=== PATIENT | female | born 1945 | race Caucasian/White ===

== ENCOUNTER 2017-05-25 13:27 | Inpatient (IN) ==
[2017-05-25] MEDS ORDERED: ALBUTEROL/IPRATROPIUM 3 ML NEB RESP TX STA (14:38)
[2017-05-25 15:00] LABS: Apearance,Urine CLEAR (Clear); Bilirubin,Urine Negative (Negative); Blood, Urine Negative (Negative); Glucose,Urine (UA) Negative (Negative); Ketones,Urine 5 mg/dL (Negative); Mucus,Urine Occasional /LPF (Occasional); Nitrite,Urine Negative (Negative); Protein,Urine Negative; RBC,Urine 2 /HPF (0-4); Squamous Epithelial Cell,Urine Occasional /HPF (0-10); Urine Color Yellow (Yellow); Urine Specific Gravity 1.014 (1.001-1.035); Urine Urobilinogen < 2.0 EU/DL (0.2-1.0); WBC,Urine 1 /HPF (0-6)
[2017-05-25 15:34] LABS: Basophils # 0.1 10*3/uL (0.0-0.2); Basophils % 1.9 % (0.0-0.8); Eosinophils # 0.3 10*3/uL (0.0-0.87); Eosinophils % 3.7 % (0.00-10.9); Immature Granulocytes % 0.3 %; Immature Granulocytes Absolute 0.02 #; Lymphocytes # 1.8 10*3/uL (1.4-4.0); Lymphocytes % 24.2 % (21.3-54.2); Mean Corpuscular HGB Conc 30.2 GM/DL (32-36); Mean Corpuscular Hemoglobin 24 PG (27-34); Mean Corpuscular Volume 80.7 FL (87-102); Mean Platelet Volume 12.1 FL (9.6-12.0); Monocytes # 0.5 10*3/uL (0.11-0.8); Monocytes % 6.8 % (1.7-12.7); NRBC # 0.02 10*3/uL; Neutrophils # 4.7 10*3/uL (1.4-7.4); Neutrophils % 63.1 % (38.7-73.9); Platelet Count 430 T/CUMM (130-400); Red Blood Count 5.33 MC/CUMM (3.8-5.5); Red Cell Distribution Width 16.5 % (9.3-17.3); White Blood Count 7.4 T/CUMM (4-12)
[2017-05-25 15:47] LABS: INR 2.5
[2017-05-25 15:54] LABS: Lactic Acid 1.3 MMOL/L (0.4-2.0)
[2017-05-25 15:59] LABS: PT Patient Result 25.5 SECS
[2017-05-25 16:10] LABS: Albumin 3.6 G/DL (3.4-5.0); Bilirubin,Total 0.7 MG/DL (0.2-1.0); Calcium 8.4 MG/DL (8.5-10.1); Osmolality,Calculated 272.8 MOS/KG (273-304); Potassium 4.8 MMOL/L (3.5-5.1); Total Protein 7.7 G/DL (6.4-8.3)
[2017-05-25] MEDS ORDERED: cefTRIAXone 1,000 MG VIAL IV STA (16:26)
[2017-05-25] MEDS ORDERED: cefTRIAXone 1,000 MG VIAL ONE (16:30)
[2017-05-25] MEDS ORDERED: ALBUTEROL 2.5 MG/3 ML NEB RESP TX PRN (16:42)
[2017-05-25] MEDS ORDERED: ONDANSETRON 4 MG/2 ML VIAL IV PRN (16:53)
[2017-05-25] MEDS ORDERED: ACETAMINOPHEN 325 MG TABLET PO PRN (16:53)
[2017-05-25] MEDS: AZITHROMYCIN INJ 500 MG in SODIUM CHLORIDE 0.9% 250 ML IV SCH (21:56)
[2017-05-26] MEDS: ALBUTEROL/IPRATROPIUM 3 ML NEB RESP TX SCH ×5 (00:30→18:41)
[2017-05-26 05:16] LABS: INR 2.4
[2017-05-26 05:17] LABS: PT Patient Result 24.8 SECS
[2017-05-26 05:32] LABS: Basophils # 0.1 10*3/uL (0.0-0.2); Basophils % 1.6 % (0.0-0.8); Eosinophils # 0.3 10*3/uL (0.0-0.87); Hematocrit 39.2 VOL% (35.7-47.0); Hemoglobin 11.9 GM/DL (12.0-16.0); Immature Granulocytes % 0.3 %; Immature Granulocytes Absolute 0.02 #; Lymphocytes # 2.2 10*3/uL (1.4-4.0); Lymphocytes % 32.3 % (21.3-54.2); Mean Corpuscular HGB Conc 30.4 GM/DL (32-36); Mean Corpuscular Hemoglobin 24 PG (27-34); Mean Corpuscular Volume 80.2 FL (87-102); Mean Platelet Volume 11.9 FL (9.6-12.0); Monocytes # 0.6 10*3/uL (0.11-0.8); Monocytes % 9.1 % (1.7-12.7); NRBC # 0.02 10*3/uL; Neutrophils # 3.6 10*3/uL (1.4-7.4); Neutrophils % 52.7 % (38.7-73.9); Platelet Count 395 T/CUMM (130-400); Red Blood Count 4.89 MC/CUMM (3.8-5.5); Red Cell Distribution Width 16.4 % (9.3-17.3); White Blood Count 6.7 T/CUMM (4-12)
[2017-05-26 05:38] LABS: Calcium 8.3 MG/DL (8.5-10.1); Osmolality,Calculated 278.5 MOS/KG (273-304); Potassium 4.3 MMOL/L (3.5-5.1)
[2017-05-26] MEDS: PANTOPRAZOLE 40 MG TABLET PO SCH (08:26)
[2017-05-26] MEDS ORDERED: WARFARIN 4 MG TABLET PO SCH (18:00)
[2017-05-26] MEDS: methylPREDNISolone SOD SUC 40 MG/1 ML VIAL IV SCH (18:22)
[2017-05-26] MEDS: cefTRIAXone 1,000 MG in SYRINGE 1 EACH IV SCH (18:23)
[2017-05-26] MEDS: AZITHROMYCIN INJ 500 MG in SODIUM CHLORIDE 0.9% 250 ML IV SCH (18:24)
[2017-05-26] MEDS: AMITRIPTYLINE 25 MG TABLET PO SCH (20:40)
[2017-05-26] MEDS: BACLOFEN 10 MG TABLET PO SCH (22:15)
[2017-05-27] MEDS: ALBUTEROL/IPRATROPIUM 3 ML NEB RESP TX SCH ×4 (00:07→19:31)
[2017-05-27] MEDS: methylPREDNISolone SOD SUC 40 MG/1 ML VIAL IV SCH ×3 (01:04→17:48)
[2017-05-27] MEDS: BACLOFEN 10 MG TABLET PO SCH ×2 (06:50→17:48)
[2017-05-27 07:05] LABS: INR 1.3
[2017-05-27] MEDS: SERTRALINE 50 MG TABLET PO SCH (10:23)
[2017-05-27] MEDS: NICOTINE 14 MG/24 HR PATCH TRANSDERM SCH (10:23)
[2017-05-27] MEDS: SOLIFENACIN 5 MG TABLET PO SCH (10:23)
[2017-05-27] MEDS: ATORVASTATIN 40 MG TABLET PO SCH (10:23)
[2017-05-27] MEDS: TERBINAFINE 250 MG TABLET PO SCH (10:23)
[2017-05-27] MEDS: PANTOPRAZOLE 40 MG TABLET PO SCH (10:24)
[2017-05-27] MEDS: CETIRIZINE 10 MG TABLET PO SCH (10:24)
[2017-05-27] MEDS: cefTRIAXone 1,000 MG in SYRINGE 1 EACH IV SCH (17:48)
[2017-05-27] MEDS ORDERED: WARFARIN 5 MG TABLET PO SCH (18:00)
[2017-05-27] MEDS: CYCLOBENZAPRINE 10 MG TABLET PO SCH ×2 (19:26→21:01)
[2017-05-27] MEDS: AMITRIPTYLINE 25 MG TABLET PO SCH (21:01)
[2017-05-28] MEDS: ALBUTEROL/IPRATROPIUM 3 ML NEB RESP TX SCH (00:17)
[2017-05-28] MEDS: methylPREDNISolone SOD SUC 40 MG/1 ML VIAL IV SCH ×2 (01:21→09:24)
[2017-05-28 07:50] LABS: INR 1.4; PT Patient Result 14.6 SECS
[2017-05-28] MEDS: CETIRIZINE 10 MG TABLET PO SCH (09:24)
[2017-05-28] MEDS: PANTOPRAZOLE 40 MG TABLET PO SCH (09:24)
[2017-05-28] MEDS: SERTRALINE 50 MG TABLET PO SCH (09:24)
[2017-05-28] MEDS: CYCLOBENZAPRINE 10 MG TABLET PO SCH (09:24)
[2017-05-28] MEDS: NICOTINE 14 MG/24 HR PATCH TRANSDERM SCH (09:24)
[2017-05-28] MEDS: SOLIFENACIN 5 MG TABLET PO SCH (09:24)
[2017-05-28] MEDS: ATORVASTATIN 40 MG TABLET PO SCH (09:24)
[2017-05-28] MEDS: TERBINAFINE 250 MG TABLET PO SCH (09:24)
[2017-05-28 11:21] VITALS: BP 150/84
[2017-05-28] MEDS ORDERED: FLUCONAZOLE 200 MG TABLET PO SCH (12:00)
== END 2017-05-28 13:58 | disposition home or self-care (01) | DRG 190 ==
LOC: N.ED 13:27 → N.EDINP 16:19 → N.4E 19:03
PROVIDERS: ADMIT Hospitalist; ATTEND Hospitalist

== ENCOUNTER 2017-06-07 17:08 | Inpatient (IN) ==
[2017-06-07 19:01] LABS: Basophils # 0.1 10*3/uL (0.0-0.2); Basophils % 0.7 % (0.0-0.8); Eosinophils # 0.2 10*3/uL (0.0-0.87); Eosinophils % 1.3 % (0.00-10.9); Hematocrit 43.5 VOL% (35.7-47.0); Hemoglobin 13.4 GM/DL (12.0-16.0); Immature Granulocytes % 0.5 %; Immature Granulocytes Absolute 0.08 #; Lymphocytes # 2.1 10*3/uL (1.4-4.0); Lymphocytes % 14.3 % (21.3-54.2); Mean Corpuscular HGB Conc 30.8 GM/DL (32-36); Mean Corpuscular Hemoglobin 25 PG (27-34); Mean Corpuscular Volume 80.4 FL (87-102); Mean Platelet Volume 11.2 FL (9.6-12.0); Monocytes # 0.6 10*3/uL (0.11-0.8); Monocytes % 3.8 % (1.7-12.7); Neutrophils # 11.7 10*3/uL (1.4-7.4); Neutrophils % 79.4 % (38.7-73.9); Platelet Count 502 T/CUMM (130-400); Red Blood Count 5.41 MC/CUMM (3.8-5.5); Red Cell Distribution Width 18.1 % (9.3-17.3); White Blood Count 14.8 T/CUMM (4-12)
[2017-06-07 19:20] LABS: Alanine Aminotransferase 19 U/L (13-56); Alkaline Phosphatase 110 U/L (45-117); Aspartate Amino Transferase 12 U/L (0-37); Bilirubin,Total < 0.39 MG/DL (0.2-1.0); Blood Urea Nitrogen 14 MG/DL (7-18); Calcium 8.1 MG/DL (8.5-10.1); Glucose 116 MG/DL (74-106); Osmolality,Calculated 276.7 MOS/KG (273-304); Potassium 4.2 MMOL/L (3.5-5.1); Sodium 138 MMOL/L (136-145); Total Protein 6.4 G/DL (6.4-8.3)
[2017-06-07] MEDS ORDERED: SODIUM CHLORIDE 0.9% 500 ML IV STA (20:17)
[2017-06-07 20:37] LABS: INR 2.5
[2017-06-07 20:39] LABS: PT Patient Result 25.6 SECS
[2017-06-07] MEDS ORDERED: ACETAMINOPHEN 325 MG TABLET PO PRN (22:22)
[2017-06-07] MEDS ORDERED: ONDANSETRON 4 MG/2 ML VIAL IV PRN (22:22)
[2017-06-07] MEDS: SODIUM CHLORIDE 0.9% 1,000 ML IV SCH (23:08)
[2017-06-07] MEDS: LEVOFLOXACIN INJ 750 MG in PREMIX 1 EACH IV SCH (23:08)
[2017-06-07] MEDS: DOCUSATE SODIUM 100 MG CAPSULE PO SCH (23:09)
[2017-06-07] MEDS: MORPHINE 2 MG/1 ML SYRINGE IV PRN (23:12)
[2017-06-08] MEDS: PIPERACILLIN/TAZOBACTAM 3,375 MG in SODIUM CHLORIDE 0.9% 100 ML IV SCH ×3 (01:00→16:49)
[2017-06-08] MEDS ORDERED: ALBUTEROL 1.25 MG/3 ML NEB RESP TX PRN (06:22)
[2017-06-08 07:09] LABS: Basophils # 0.1 10*3/uL (0.0-0.2); Basophils % 0.8 % (0.0-0.8); Eosinophils # 0.3 10*3/uL (0.0-0.87); Eosinophils % 2.7 % (0.00-10.9); Hematocrit 37.7 VOL% (35.7-47.0); Hemoglobin 11.6 GM/DL (12.0-16.0); Immature Granulocytes % 0.5 %; Immature Granulocytes Absolute 0.06 #; Lymphocytes # 2.7 10*3/uL (1.4-4.0); Mean Corpuscular HGB Conc 30.8 GM/DL (32-36); Mean Corpuscular Hemoglobin 25 PG (27-34); Mean Corpuscular Volume 80.6 FL (87-102); Mean Platelet Volume 11.4 FL (9.6-12.0); Monocytes # 0.7 10*3/uL (0.11-0.8); Monocytes % 5.8 % (1.7-12.7); Neutrophils # 7.7 10*3/uL (1.4-7.4); Neutrophils % 67.2 % (38.7-73.9); Platelet Count 419 T/CUMM (130-400); Red Blood Count 4.68 MC/CUMM (3.8-5.5); Red Cell Distribution Width 17.2 % (9.3-17.3); White Blood Count 11.5 T/CUMM (4-12)
[2017-06-08] MEDS: ALBUTEROL/IPRATROPIUM 3 ML NEB RESP TX SCH ×3 (07:38→19:33)
[2017-06-08 07:41] LABS: Calcium 8.2 MG/DL (8.5-10.1); Osmolality,Calculated 274.7 MOS/KG (273-304); Potassium 4.3 MMOL/L (3.5-5.1)
[2017-06-08] MEDS: DOCUSATE SODIUM 100 MG CAPSULE PO SCH ×2 (08:58→20:32)
[2017-06-08] MEDS: PANTOPRAZOLE 40 MG TABLET PO SCH (08:58)
[2017-06-08] MEDS: POLYETHYLENE GLYCOL POWDER 17 GM PACK PO SCH (08:58)
[2017-06-08] MEDS: METHOCARBAMOL 500 MG TABLET PO SCH ×2 (09:03→20:32)
[2017-06-08] MEDS ORDERED: LORazepam 2 MG/1 ML VIAL IV ONE (11:32)
[2017-06-08] MEDS ORDERED: BACLOFEN 10 MG TABLET PO SCH (15:00)
[2017-06-08] MEDS: WARFARIN 4 MG TABLET PO SCH (18:29)
[2017-06-08] MEDS: AMITRIPTYLINE 25 MG TABLET PO SCH (20:32)
[2017-06-08] MEDS: MORPHINE 2 MG/1 ML SYRINGE IV PRN (22:16)
[2017-06-08] MEDS: LEVOFLOXACIN INJ 750 MG in PREMIX 1 EACH IV SCH (22:34)
[2017-06-09] MEDS: PIPERACILLIN/TAZOBACTAM 3,375 MG in SODIUM CHLORIDE 0.9% 100 ML IV SCH ×3 (01:23→16:45)
[2017-06-09] MEDS: ALBUTEROL/IPRATROPIUM 3 ML NEB RESP TX SCH ×4 (01:27→19:01)
[2017-06-09 05:19] LABS: Basophils # 0.1 10*3/uL (0.0-0.2); Basophils % 0.7 % (0.0-0.8); Eosinophils # 0.3 10*3/uL (0.0-0.87); Eosinophils % 3.3 % (0.00-10.9); Hematocrit 36.1 VOL% (35.7-47.0); Hemoglobin 11.2 GM/DL (12.0-16.0); Immature Granulocytes % 0.4 %; Immature Granulocytes Absolute 0.04 #; Lymphocytes # 2.1 10*3/uL (1.4-4.0); Lymphocytes % 21.7 % (21.3-54.2); Mean Corpuscular Hemoglobin 24 PG (27-34); Mean Corpuscular Volume 78.3 FL (87-102); Mean Platelet Volume 11.5 FL (9.6-12.0); Monocytes # 0.7 10*3/uL (0.11-0.8); Monocytes % 7.4 % (1.7-12.7); Neutrophils # 6.5 10*3/uL (1.4-7.4); Neutrophils % 66.5 % (38.7-73.9); Platelet Count 393 T/CUMM (130-400); Red Blood Count 4.61 MC/CUMM (3.8-5.5); Red Cell Distribution Width 17.4 % (9.3-17.3); White Blood Count 9.8 T/CUMM (4-12)
[2017-06-09 05:52] LABS: Calcium 7.9 MG/DL (8.5-10.1); Osmolality,Calculated 273.7 MOS/KG (273-304); Potassium 4.4 MMOL/L (3.5-5.1)
[2017-06-09] MEDS ORDERED: MIDAZOLAM 2 MG/2 ML VIAL ONE (07:22)
[2017-06-09] MEDS ORDERED: MEPERIDINE 50 MG/1 ML VIAL IM ONE (07:30)
[2017-06-09] MEDS ORDERED: PROMETHAZINE 25 MG/1 ML VIAL IM ONE (07:30)
[2017-06-09] MEDS ORDERED: LIDOCAINE 1% 20 ML VIAL MISC INJ ONE (08:00)
[2017-06-09] MEDS ORDERED: LIDOCAINE 2% 20 ML VIAL RESP TX ONE (08:00)
[2017-06-09] MEDS ORDERED: MIDAZOLAM 2 MG/2 ML VIAL IV ONE (08:00)
[2017-06-09] MEDS ORDERED: LIDOCAINE 2% VISCOUS 100 ML BOTTLE SWISH/SPIT ONE (08:00)
[2017-06-09] MEDS ORDERED: WARFARIN 4 MG TABLET PO SCH (09:00)
[2017-06-09] MEDS ORDERED: LORazepam 2 MG/1 ML VIAL IV ONE (09:30)
[2017-06-09] MEDS: methylPREDNISolone SOD SUC 40 MG/1 ML VIAL IV SCH ×2 (11:25→21:11)
[2017-06-09] MEDS: ATORVASTATIN 40 MG TABLET PO SCH (11:25)
[2017-06-09] MEDS: DOCUSATE SODIUM 100 MG CAPSULE PO SCH ×2 (11:26→21:18)
[2017-06-09] MEDS: METHOCARBAMOL 500 MG TABLET PO SCH ×2 (11:26→21:18)
[2017-06-09] MEDS: PANTOPRAZOLE 40 MG TABLET PO SCH (11:26)
[2017-06-09] MEDS: POLYETHYLENE GLYCOL POWDER 17 GM PACK PO SCH (11:26)
[2017-06-09] MEDS: SOLIFENACIN 5 MG TABLET PO SCH (11:26)
[2017-06-09] MEDS: SERTRALINE 50 MG TABLET PO SCH (11:26)
[2017-06-09] MEDS: TERBINAFINE 250 MG TABLET PO SCH (11:26)
[2017-06-09] MEDS: WARFARIN 4 MG TABLET PO SCH (17:07)
[2017-06-09] MEDS: LEVOFLOXACIN INJ 750 MG in PREMIX 1 EACH IV SCH (21:10)
[2017-06-09] MEDS: SODIUM CHLORIDE 0.9% 1,000 ML IV SCH (21:10)
[2017-06-09] MEDS: AMITRIPTYLINE 25 MG TABLET PO SCH (21:18)
[2017-06-10] MEDS: ALBUTEROL/IPRATROPIUM 3 ML NEB RESP TX SCH ×4 (00:02→19:28)
[2017-06-10] MEDS: PIPERACILLIN/TAZOBACTAM 3,375 MG in SODIUM CHLORIDE 0.9% 100 ML IV SCH ×3 (00:49→16:36)
[2017-06-10 06:31] LABS: Basophils % 0.1 % (0.0-0.8); Hematocrit 36.3 VOL% (35.7-47.0); Hemoglobin 11.1 GM/DL (12.0-16.0); Immature Granulocytes % 0.6 %; Immature Granulocytes Absolute 0.05 #; Lymphocytes # 0.8 10*3/uL (1.4-4.0); Lymphocytes % 9.4 % (21.3-54.2); Mean Corpuscular HGB Conc 30.6 GM/DL (32-36); Mean Corpuscular Hemoglobin 24 PG (27-34); Mean Corpuscular Volume 79.1 FL (87-102); Mean Platelet Volume 11.7 FL (9.6-12.0); Monocytes # 0.2 10*3/uL (0.11-0.8); Neutrophils # 7.2 10*3/uL (1.4-7.4); Neutrophils % 87.9 % (38.7-73.9); Platelet Count 398 T/CUMM (130-400); Red Blood Count 4.59 MC/CUMM (3.8-5.5); Red Cell Distribution Width 17.6 % (9.3-17.3); White Blood Count 8.2 T/CUMM (4-12)
[2017-06-10 06:43] LABS: INR 1.4
[2017-06-10 07:05] LABS: Calcium 8.4 MG/DL (8.5-10.1); Osmolality,Calculated 288.5 MOS/KG (273-304); Potassium 4.4 MMOL/L (3.5-5.1)
[2017-06-10] MEDS: methylPREDNISolone SOD SUC 40 MG/1 ML VIAL IV SCH ×2 (09:40→20:56)
[2017-06-10] MEDS: TERBINAFINE 250 MG TABLET PO SCH (09:40)
[2017-06-10] MEDS: METHOCARBAMOL 500 MG TABLET PO SCH ×2 (09:40→20:55)
[2017-06-10] MEDS: POLYETHYLENE GLYCOL POWDER 17 GM PACK PO SCH (09:41)
[2017-06-10] MEDS: PANTOPRAZOLE 40 MG TABLET PO SCH (09:41)
[2017-06-10] MEDS: DOCUSATE SODIUM 100 MG CAPSULE PO SCH ×2 (09:41→20:55)
[2017-06-10] MEDS: SERTRALINE 50 MG TABLET PO SCH (09:41)
[2017-06-10] MEDS: SOLIFENACIN 5 MG TABLET PO SCH (09:41)
[2017-06-10] MEDS: ATORVASTATIN 40 MG TABLET PO SCH (09:41)
[2017-06-10] MEDS ORDERED: MORPHINE 4 MG/1 ML VIAL IV PRN (11:02)
[2017-06-10] MEDS: WARFARIN 4 MG TABLET PO SCH (17:49)
[2017-06-10] MEDS: AMITRIPTYLINE 25 MG TABLET PO SCH (20:56)
[2017-06-10] MEDS: LEVOFLOXACIN INJ 750 MG in PREMIX 1 EACH IV SCH (20:59)
[2017-06-11] MEDS: ALBUTEROL/IPRATROPIUM 3 ML NEB RESP TX SCH ×4 (00:25→19:31)
[2017-06-11] MEDS: PIPERACILLIN/TAZOBACTAM 3,375 MG in SODIUM CHLORIDE 0.9% 100 ML IV SCH ×3 (01:53→16:12)
[2017-06-11 06:00] LABS: Basophils % 0.1 % (0.0-0.8); Hematocrit 34.9 VOL% (35.7-47.0); Hemoglobin 10.4 GM/DL (12.0-16.0); Immature Granulocytes % 1.3 %; Immature Granulocytes Absolute 0.15 #; Lymphocytes # 1.1 10*3/uL (1.4-4.0); Lymphocytes % 9.6 % (21.3-54.2); Mean Corpuscular HGB Conc 29.8 GM/DL (32-36); Mean Corpuscular Hemoglobin 24 PG (27-34); Monocytes # 0.4 10*3/uL (0.11-0.8); Neutrophils # 10.1 10*3/uL (1.4-7.4); Platelet Count 382 T/CUMM (130-400); Red Blood Count 4.36 MC/CUMM (3.8-5.5); Red Cell Distribution Width 17.7 % (9.3-17.3); White Blood Count 11.7 T/CUMM (4-12)
[2017-06-11 06:11] LABS: Calcium 8.4 MG/DL (8.5-10.1); Osmolality,Calculated 292.4 MOS/KG (273-304); Potassium 4.5 MMOL/L (3.5-5.1)
[2017-06-11 06:14] LABS: INR 1.8; PT Patient Result 18.5 SECS
[2017-06-11] MEDS: METHOCARBAMOL 500 MG TABLET PO SCH ×2 (09:27→20:54)
[2017-06-11] MEDS: FLUCONAZOLE 100 MG TABLET PO SCH (09:27)
[2017-06-11] MEDS: POLYETHYLENE GLYCOL POWDER 17 GM PACK PO SCH (09:27)
[2017-06-11] MEDS: TERBINAFINE 250 MG TABLET PO SCH (09:28)
[2017-06-11] MEDS: SOLIFENACIN 5 MG TABLET PO SCH (09:28)
[2017-06-11] MEDS: DOCUSATE SODIUM 100 MG CAPSULE PO SCH ×2 (09:28→20:54)
[2017-06-11] MEDS: PANTOPRAZOLE 40 MG TABLET PO SCH (09:28)
[2017-06-11] MEDS: SERTRALINE 50 MG TABLET PO SCH (09:28)
[2017-06-11] MEDS: ATORVASTATIN 40 MG TABLET PO SCH (09:28)
[2017-06-11] MEDS: methylPREDNISolone SOD SUC 40 MG/1 ML VIAL IV SCH ×2 (10:45→20:55)
[2017-06-11] MEDS: SODIUM CHLORIDE 0.9% 1,000 ML IV SCH (19:08)
[2017-06-11] MEDS: AMITRIPTYLINE 25 MG TABLET PO SCH (20:54)
[2017-06-11] MEDS: LEVOFLOXACIN INJ 750 MG in PREMIX 1 EACH IV SCH (20:55)
[2017-06-12] MEDS: ALBUTEROL/IPRATROPIUM 3 ML NEB RESP TX SCH ×4 (00:59→19:19)
[2017-06-12] MEDS: PIPERACILLIN/TAZOBACTAM 3,375 MG in SODIUM CHLORIDE 0.9% 100 ML IV SCH ×3 (02:46→16:16)
[2017-06-12 07:00] LABS: Basophils % 0.1 % (0.0-0.8); Eosinophils % 0.1 % (0.00-10.9); Hematocrit 34.2 VOL% (35.7-47.0); Hemoglobin 10.7 GM/DL (12.0-16.0); Immature Granulocytes % 0.8 %; Immature Granulocytes Absolute 0.07 #; Lymphocytes # 0.9 10*3/uL (1.4-4.0); Lymphocytes % 10.4 % (21.3-54.2); Mean Corpuscular HGB Conc 31.3 GM/DL (32-36); Mean Corpuscular Hemoglobin 25 PG (27-34); Mean Corpuscular Volume 78.4 FL (87-102); Mean Platelet Volume 12.6 FL (9.6-12.0); Monocytes # 0.3 10*3/uL (0.11-0.8); Monocytes % 2.9 % (1.7-12.7); NRBC # 0.03 10*3/uL; Neutrophils # 7.7 10*3/uL (1.4-7.4); Neutrophils % 85.7 % (38.7-73.9); Platelet Count 222 T/CUMM (130-400); Red Blood Count 4.36 MC/CUMM (3.8-5.5); Red Cell Distribution Width 17.7 % (9.3-17.3)
[2017-06-12 07:11] LABS: INR 1.3
[2017-06-12 07:33] LABS: Calcium 8.1 MG/DL (8.5-10.1); Osmolality,Calculated 285.8 MOS/KG (273-304); Potassium 4.5 MMOL/L (3.5-5.1)
[2017-06-12 07:48] LABS: Burr Cells Few; Platelet Estimate Normal; Poikilocytosis Few
[2017-06-12 07:49] LABS: Anisocytosis Slight; Microcytosis 1+; Ovalocytes Slight
[2017-06-12] MEDS: TERBINAFINE 250 MG TABLET PO SCH (09:29)
[2017-06-12] MEDS: METHOCARBAMOL 500 MG TABLET PO SCH ×2 (09:29→20:26)
[2017-06-12] MEDS: SOLIFENACIN 5 MG TABLET PO SCH (09:29)
[2017-06-12] MEDS: methylPREDNISolone SOD SUC 40 MG/1 ML VIAL IV SCH ×2 (09:29→20:27)
[2017-06-12] MEDS: POLYETHYLENE GLYCOL POWDER 17 GM PACK PO SCH (09:29)
[2017-06-12] MEDS: FLUCONAZOLE 100 MG TABLET PO SCH (09:30)
[2017-06-12] MEDS: SERTRALINE 50 MG TABLET PO SCH (09:31)
[2017-06-12] MEDS: ATORVASTATIN 40 MG TABLET PO SCH (09:31)
[2017-06-12] MEDS: DOCUSATE SODIUM 100 MG CAPSULE PO SCH ×2 (09:31→20:26)
[2017-06-12] MEDS: PANTOPRAZOLE 40 MG TABLET PO SCH (09:31)
[2017-06-12] MEDS: AMITRIPTYLINE 25 MG TABLET PO SCH (20:26)
[2017-06-12] MEDS: LEVOFLOXACIN INJ 750 MG in PREMIX 1 EACH IV SCH (20:27)
[2017-06-13] MEDS: ALBUTEROL/IPRATROPIUM 3 ML NEB RESP TX SCH ×4 (00:33→19:38)
[2017-06-13] MEDS: PIPERACILLIN/TAZOBACTAM 3,375 MG in SODIUM CHLORIDE 0.9% 100 ML IV SCH ×3 (01:06→16:17)
[2017-06-13 05:24] LABS: Basophils % 0.1 % (0.0-0.8); Hematocrit 34.7 VOL% (35.7-47.0); Hemoglobin 10.9 GM/DL (12.0-16.0); Immature Granulocytes % 1.2 %; Immature Granulocytes Absolute 0.11 #; Lymphocytes # 1.3 10*3/uL (1.4-4.0); Lymphocytes % 13.9 % (21.3-54.2); Mean Corpuscular HGB Conc 31.4 GM/DL (32-36); Mean Corpuscular Hemoglobin 25 PG (27-34); Mean Platelet Volume 11.7 FL (9.6-12.0); Monocytes # 0.4 10*3/uL (0.11-0.8); Monocytes % 4.3 % (1.7-12.7); NRBC # 0.04 10*3/uL; Neutrophils # 7.7 10*3/uL (1.4-7.4); Neutrophils % 80.5 % (38.7-73.9); Platelet Count 345 T/CUMM (130-400); Red Blood Count 4.45 MC/CUMM (3.8-5.5); Red Cell Distribution Width 17.4 % (9.3-17.3); White Blood Count 9.6 T/CUMM (4-12)
[2017-06-13 05:30] LABS: INR 1.1; PT Patient Result 11.4 SECS
[2017-06-13 05:43] LABS: Calcium 8.1 MG/DL (8.5-10.1); Osmolality,Calculated 288.8 MOS/KG (273-304); Potassium 4.2 MMOL/L (3.5-5.1)
[2017-06-13] MEDS: TERBINAFINE 250 MG TABLET PO SCH (09:09)
[2017-06-13] MEDS: DOCUSATE SODIUM 100 MG CAPSULE PO SCH ×2 (09:09→20:59)
[2017-06-13] MEDS: SERTRALINE 50 MG TABLET PO SCH (09:09)
[2017-06-13] MEDS: SOLIFENACIN 5 MG TABLET PO SCH (09:09)
[2017-06-13] MEDS: METHOCARBAMOL 500 MG TABLET PO SCH ×2 (09:09→20:59)
[2017-06-13] MEDS: ATORVASTATIN 40 MG TABLET PO SCH (09:10)
[2017-06-13] MEDS: PANTOPRAZOLE 40 MG TABLET PO SCH (09:10)
[2017-06-13] MEDS: FLUCONAZOLE 100 MG TABLET PO SCH (09:10)
[2017-06-13] MEDS: POLYETHYLENE GLYCOL POWDER 17 GM PACK PO SCH (09:11)
[2017-06-13] MEDS: methylPREDNISolone SOD SUC 40 MG/1 ML VIAL IV SCH ×2 (09:11→21:00)
[2017-06-13] MEDS ORDERED: GLUCAGON 1 MG VIAL IM PRN (09:42)
[2017-06-13] MEDS ORDERED: DEXTROSE 50% 25 GM/50 ML VIAL IV PRN (09:42)
[2017-06-13] MEDS: INSULIN LISPRO 100 UNIT/ML SUBCUT SCH ×3 (12:35→21:02)
[2017-06-13] MEDS: SODIUM CHLORIDE 0.9% 1,000 ML IV SCH ×2 (20:24→20:28)
[2017-06-13] MEDS: AMITRIPTYLINE 25 MG TABLET PO SCH (20:59)
[2017-06-13] MEDS: LEVOFLOXACIN INJ 750 MG in PREMIX 1 EACH IV SCH (21:04)
[2017-06-14] MEDS: PIPERACILLIN/TAZOBACTAM 3,375 MG in SODIUM CHLORIDE 0.9% 100 ML IV SCH ×3 (00:59→19:01)
[2017-06-14] MEDS: ALBUTEROL/IPRATROPIUM 3 ML NEB RESP TX SCH ×5 (01:20→19:42)
[2017-06-14] MEDS ORDERED: FAMOTIDINE 20 MG TABLET PO ONE (09:00)
[2017-06-14] MEDS ORDERED: IPRATROPIUM 500 MCG/2.5 ML NEB RESP TX ONE (09:00)
[2017-06-14] MEDS ORDERED: DIAZEPAM 5 MG TABLET PO ONE (09:00)
[2017-06-14] MEDS ORDERED: ALBUTEROL 2.5 MG/3 ML NEB RESP TX ONE (09:00)
[2017-06-14] MEDS: methylPREDNISolone SOD SUC 40 MG/1 ML VIAL IV SCH ×2 (09:24→21:04)
[2017-06-14] MEDS ORDERED: DEXTROSE 50% 25 GM/50 ML VIAL IV PRN (10:26)
[2017-06-14] MEDS ORDERED: GLUCAGON 1 MG VIAL IM PRN (10:26)
[2017-06-14] MEDS: INSULIN LISPRO 100 UNIT/ML SUBCUT SCH ×4 (10:38→21:22)
[2017-06-14] MEDS ORDERED: ALBUTEROL/IPRATROPIUM 3 ML NEB RESP TX ONE (11:13)
[2017-06-14] MEDS ORDERED: MIDAZOLAM 2 MG/2 ML VIAL ONE (12:23)
[2017-06-14] MEDS ORDERED: PROPOFOL 200 MG/20 ML VIAL IV ONE (12:23)
[2017-06-14] MEDS ORDERED: fentaNYL 100 MCG/2 ML VIAL ONE (12:24)
[2017-06-14] MEDS: SODIUM CHLORIDE 0.9% 1,000 ML IV SCH (15:11)
[2017-06-14] MEDS: PANTOPRAZOLE 40 MG TABLET PO SCH (17:47)
[2017-06-14] MEDS: POLYETHYLENE GLYCOL POWDER 17 GM PACK PO SCH (17:47)
[2017-06-14] MEDS: TERBINAFINE 250 MG TABLET PO SCH (17:47)
[2017-06-14] MEDS: FLUCONAZOLE 100 MG TABLET PO SCH (17:47)
[2017-06-14] MEDS: METHOCARBAMOL 500 MG TABLET PO SCH ×2 (17:47→21:04)
[2017-06-14] MEDS: SOLIFENACIN 5 MG TABLET PO SCH (17:47)
[2017-06-14] MEDS: DOCUSATE SODIUM 100 MG CAPSULE PO SCH ×2 (17:47→21:04)
[2017-06-14] MEDS: ATORVASTATIN 40 MG TABLET PO SCH (17:47)
[2017-06-14] MEDS: SERTRALINE 50 MG TABLET PO SCH (17:47)
[2017-06-14] MEDS: AMITRIPTYLINE 25 MG TABLET PO SCH (21:04)
[2017-06-14] MEDS: LEVOFLOXACIN INJ 750 MG in PREMIX 1 EACH IV SCH (23:29)
[2017-06-15] MEDS: ALBUTEROL/IPRATROPIUM 3 ML NEB RESP TX SCH ×3 (00:29→13:20)
[2017-06-15] MEDS: PIPERACILLIN/TAZOBACTAM 3,375 MG in SODIUM CHLORIDE 0.9% 100 ML IV SCH ×2 (02:18→09:47)
[2017-06-15 05:39] LABS: Basophils % 0.1 % (0.0-0.8); Hematocrit 36.6 VOL% (35.7-47.0); Hemoglobin 11.5 GM/DL (12.0-16.0); Immature Granulocytes Absolute 0.11 #; Lymphocytes # 1.3 10*3/uL (1.4-4.0); Mean Corpuscular HGB Conc 31.4 GM/DL (32-36); Mean Corpuscular Hemoglobin 24 PG (27-34); Mean Corpuscular Volume 76.7 FL (87-102); Mean Platelet Volume 11.6 FL (9.6-12.0); Monocytes # 0.4 10*3/uL (0.11-0.8); Monocytes % 3.1 % (1.7-12.7); NRBC # 0.03 10*3/uL; Neutrophils # 9.4 10*3/uL (1.4-7.4); Neutrophils % 83.8 % (38.7-73.9); Platelet Count 334 T/CUMM (130-400); Red Blood Count 4.77 MC/CUMM (3.8-5.5); Red Cell Distribution Width 17.3 % (9.3-17.3); White Blood Count 11.2 T/CUMM (4-12)
[2017-06-15 06:27] LABS: Calcium 7.9 MG/DL (8.5-10.1); Osmolality,Calculated 287.7 MOS/KG (273-304); Potassium 4.1 MMOL/L (3.5-5.1)
[2017-06-15] MEDS: methylPREDNISolone SOD SUC 40 MG/1 ML VIAL IV SCH (09:46)
[2017-06-15] MEDS: INSULIN LISPRO 100 UNIT/ML SUBCUT SCH ×2 (09:54→15:01)
[2017-06-15] MEDS: TERBINAFINE 250 MG TABLET PO SCH (10:01)
[2017-06-15] MEDS: DOCUSATE SODIUM 100 MG CAPSULE PO SCH (10:01)
[2017-06-15] MEDS: POLYETHYLENE GLYCOL POWDER 17 GM PACK PO SCH (10:01)
[2017-06-15] MEDS: METHOCARBAMOL 500 MG TABLET PO SCH (10:01)
[2017-06-15] MEDS: PANTOPRAZOLE 40 MG TABLET PO SCH (10:01)
[2017-06-15] MEDS: ATORVASTATIN 40 MG TABLET PO SCH (10:01)
[2017-06-15] MEDS: SERTRALINE 50 MG TABLET PO SCH (10:02)
[2017-06-15] MEDS: SOLIFENACIN 5 MG TABLET PO SCH (10:02)
[2017-06-15] MEDS: FLUCONAZOLE 100 MG TABLET PO SCH (10:02)
[2017-06-15] MEDS ORDERED: predniSONE 20 MG TABLET PO SCH (10:30)
[2017-06-15] MEDS ORDERED: FUROSEMIDE 40 MG/4 ML VIAL IV ONE (10:30)
[2017-06-15 12:00] VITALS: BP 141/91
== END 2017-06-15 14:45 | disposition swing bed (61) | DRG 853 ==
LOC: EDUNIT# → N.ED 17:08 → N.EDINP 21:30 → SUATTDRO 21:30 → N.2E 21:40
PROVIDERS: ADMIT Internal Medicine; ATTEND Internal Medicine

== ENCOUNTER 2018-02-08 12:27 | Inpatient (IN) ==
[2018-02-08] MEDS ORDERED: SODIUM CHLORIDE 0.9% 500 ML IV STA (13:09)
[2018-02-08 13:18] LABS: Basophils # 0.1 10*3/uL (0.0-0.2); Basophils % 0.5 % (0.0-0.8); Eosinophils # 0.1 10*3/uL (0.0-0.87); Eosinophils % 0.6 % (0.00-10.9); Hematocrit 40.6 VOL% (35.7-47.0); Hemoglobin 12.2 GM/DL (12.0-16.0); Immature Granulocytes % 0.6 %; Lymphocytes # 3.4 10*3/uL (1.4-4.0); Lymphocytes % 20.7 % (21.3-54.2); Mean Corpuscular Hemoglobin 23 PG (27-34); Mean Corpuscular Volume 77.5 FL (87-102); Mean Platelet Volume 11.4 FL (9.6-12.0); Monocytes # 0.7 10*3/uL (0.11-0.8); Monocytes % 4.3 % (1.7-12.7); Neutrophils # 11.9 10*3/uL (1.4-7.4); Neutrophils % 73.3 % (38.7-73.9); Platelet Count 342 T/CUMM (130-400); Red Blood Count 5.24 MC/CUMM (3.8-5.5); White Blood Count 16.2 T/CUMM (4-12)
[2018-02-08 13:23] LABS: INR 1.8; PT Patient Result 19.4 SECS
[2018-02-08 13:45] LABS: Albumin 2.6 G/DL (3.4-5.0); Bilirubin,Total 1.1 MG/DL (0.2-1.0); Calcium 8.2 MG/DL (8.5-10.1); Osmolality,Calculated 278.4 MOS/KG (273-304); Potassium 3.3 MMOL/L (3.5-5.1); Total Protein 7.1 G/DL (6.4-8.3)
[2018-02-08 14:08] LABS: Apearance,Urine CLOUDY (Clear); Bacteria,Urine Moderate /HPF (Few); Bilirubin,Urine Negative (Negative); Blood, Urine Negative (Negative); Glucose,Urine (UA) Negative (Negative); Hyaline Casts,Urine 1 /LPF (0-3); Ketones,Urine Negative (Negative); Mucus,Urine Few /LPF (Occasional); Nitrite,Urine Positive (Negative); Protein,Urine Negative; RBC,Urine 2 /HPF (0-4); Squamous Epithelial Cell,Urine Occasional /HPF (0-10); Urine Color Yellow (Yellow); Urine Specific Gravity 1.015 (1.001-1.035); Urine Urobilinogen < 2.0 EU/DL (0.2-1.0); WBC,Urine 287 /HPF (0-6)
[2018-02-08] MEDS ORDERED: ACETAMINOPHEN 325 MG TABLET PO PRN (14:50)
[2018-02-08] MEDS ORDERED: MORPHINE 4 MG/1 ML VIAL IV PRN (14:50)
[2018-02-08] MEDS ORDERED: POTASSIUM CHLORIDE 20 MEQ TABLET PO ONE (14:55)
[2018-02-08] MEDS: PANTOPRAZOLE 40 MG TABLET PO SCH (15:28)
[2018-02-08] MEDS: cefTRIAXone 1,000 MG in SYRINGE 1 EACH IV SCH (15:33)
[2018-02-08] MEDS ORDERED: hydrALAZINE 20 MG/1 ML VIAL IV PRN (16:27)
[2018-02-08] MEDS ORDERED: INFLUENZA VIRUS VACCINE 0.5 ML SYRINGE IM ONE (17:59)
[2018-02-08] MEDS: methylPREDNISolone SOD SUC 125 MG/2 ML VIAL IV SCH (18:17)
[2018-02-08] MEDS: SERTRALINE 50 MG TABLET PO SCH (18:18)
[2018-02-08] MEDS: SODIUM CHLORIDE 0.9% 1,000 ML IV SCH (18:24)
[2018-02-08] MEDS: ONDANSETRON 4 MG/2 ML VIAL IV PRN (18:46)
[2018-02-08] MEDS: ALBUTEROL/IPRATROPIUM 3 ML NEB RESP TX SCH ×2 (20:01→23:20)
[2018-02-08] MEDS: BACLOFEN 10 MG TABLET PO PRN (20:40)
[2018-02-08] MEDS: diphenhydrAMINE CAP 25 MG CAPSULE PO PRN (20:40)
[2018-02-08] MEDS: AMITRIPTYLINE 25 MG TABLET PO SCH (20:40)
[2018-02-08] MEDS: MELATONIN 3 MG TABLET PO SCH (20:40)
[2018-02-08] MEDS: CYCLOBENZAPRINE 10 MG TABLET PO SCH (20:40)
[2018-02-08] MEDS ORDERED: BACLOFEN 10 MG TABLET PO SCH (21:00)
[2018-02-08] MEDS: POTASSIUM CHLORIDE 20 MEQ TABLET PO PRN (23:38)
[2018-02-09] MEDS: methylPREDNISolone SOD SUC 125 MG/2 ML VIAL IV SCH ×3 (01:25→15:50)
[2018-02-09] MEDS: POTASSIUM CHLORIDE 20 MEQ TABLET PO PRN ×2 (01:28→03:40)
[2018-02-09] MEDS: ALBUTEROL/IPRATROPIUM 3 ML NEB RESP TX SCH ×5 (02:38→19:39)
[2018-02-09] MEDS: MEPERIDINE 50 MG/1 ML VIAL IM PRN ×2 (03:39→09:41)
[2018-02-09] MEDS ORDERED: ceFAZolin 1,000 MG in SYRINGE 1 EACH IV ONE (06:30)
[2018-02-09 07:11] LABS: INR 1.8; PT Patient Result 19.6 SECS
[2018-02-09] MEDS: SODIUM CHLORIDE 0.9% 1,000 ML IV SCH (07:20)
[2018-02-09 07:26] LABS: Basophils % 0.1 % (0.0-0.8); Hematocrit 34.3 VOL% (35.7-47.0); Hemoglobin 10.3 GM/DL (12.0-16.0); Immature Granulocytes % 0.5 %; Immature Granulocytes Absolute 0.07 #; Lymphocytes # 0.8 10*3/uL (1.4-4.0); Lymphocytes % 5.7 % (21.3-54.2); Mean Corpuscular Hemoglobin 24 PG (27-34); Mean Corpuscular Volume 78.1 FL (87-102); Mean Platelet Volume 12.5 FL (9.6-12.0); Monocytes # 0.1 10*3/uL (0.11-0.8); Monocytes % 0.5 % (1.7-12.7); Neutrophils # 12.2 10*3/uL (1.4-7.4); Neutrophils % 93.2 % (38.7-73.9); Platelet Count 326 T/CUMM (130-400); Red Blood Count 4.39 MC/CUMM (3.8-5.5); Red Cell Distribution Width 18.6 % (9.3-17.3); White Blood Count 13.1 T/CUMM (4-12)
[2018-02-09 07:47] LABS: Osmolality,Calculated 283.3 MOS/KG (273-304); Potassium 4.9 MMOL/L (3.5-5.1); Risk Ratio 2.06; Thyroid Stimulating Hormone 0.288 uIU/ml (0.358-3.74); VLDL CHOLESTEROL 9.2 MG/DL
[2018-02-09 08:33] LABS: Anisocytosis 1+; Band Neutrophils 8 % (0-10); Lymphocytes 7 % (20-55); Platelet Estimate Normal; Poikilocytosis 1+; Segmented Neutrophils 84 % (50-85); Total Cells Counted 100
[2018-02-09] MEDS ORDERED: HydrOXYzine PAMOATE 50 MG CAPSULE PO PRN (08:53)
[2018-02-09] MEDS: CYCLOBENZAPRINE 10 MG TABLET PO SCH ×3 (09:44→22:16)
[2018-02-09] MEDS: ONDANSETRON 4 MG/2 ML VIAL IV PRN (10:03)
[2018-02-09] MEDS ORDERED: TRANEXAMIC ACID 1,000 MG/10 ML VIAL ONE (10:59)
[2018-02-09] MEDS ORDERED: BACITRACIN OINT 0.9 GM PACK TOP ONE (12:32)
[2018-02-09] MEDS ORDERED: MAGNESIUM HYDROXIDE SUSP 30 ML UDCUP PO PRN (12:56)
[2018-02-09] MEDS ORDERED: MORPHINE 4 MG/1 ML VIAL IV PRN (12:56)
[2018-02-09] MEDS ORDERED: SEVOFLURANE 1 UNIT/15 MINUTE INH ONE (13:09)
[2018-02-09] MEDS ORDERED: ONDANSETRON 4 MG/2 ML VIAL ONE (13:09)
[2018-02-09] MEDS ORDERED: GLYCOPYRROLATE 0.4 MG/2 ML VIAL ONE (13:09)
[2018-02-09] MEDS ORDERED: PROPOFOL 200 MG/20 ML VIAL IV ONE (13:09)
[2018-02-09] MEDS ORDERED: ETOMIDATE 40 MG/20 ML VIAL IV ONE (13:09)
[2018-02-09] MEDS ORDERED: LIDOCAINE 1% 5 ML VIAL ONE (13:09)
[2018-02-09] MEDS ORDERED: NEOSTIGMINE 10 MG/10 ML VIAL ONE (13:10)
[2018-02-09] MEDS ORDERED: ROCURONIUM 100 MG/10 ML VIAL IV ONE (13:10)
[2018-02-09] MEDS ORDERED: ACETAMINOPHEN 1,000 MG/100 ML VIAL IV ONE (13:10)
[2018-02-09] MEDS: cefTRIAXone 1,000 MG in SYRINGE 1 EACH IV SCH (14:35)
[2018-02-09] MEDS: CALCIUM (CARBONATE)/VITAMIN D 600 MG-400 UNIT TABLET PO SCH (14:36)
[2018-02-09] MEDS: TERBINAFINE 250 MG TABLET PO SCH (14:36)
[2018-02-09] MEDS: SOLIFENACIN 5 MG TABLET PO SCH (14:36)
[2018-02-09] MEDS: ATORVASTATIN 40 MG TABLET PO SCH (14:37)
[2018-02-09] MEDS: BISACODYL 5 MG TABLET PO SCH (14:37)
[2018-02-09] MEDS: PANTOPRAZOLE 40 MG TABLET PO SCH (14:37)
[2018-02-09] MEDS: SERTRALINE 50 MG TABLET PO SCH (14:38)
[2018-02-09] MEDS: KETOROLAC 15 MG/1 ML VIAL IV SCH ×2 (14:38→20:13)
[2018-02-09] MEDS: LIDOCAINE 5% PATCH TRANSDERM SCH (14:40)
[2018-02-09] MEDS: SCOPOLAMINE 1.5 MG PATCH TRANSDERM SCH (14:41)
[2018-02-09] MEDS ORDERED: CARVEDILOL 3.125 MG TABLET PO SCH (21:00)
[2018-02-09] MEDS ORDERED: METOPROLOL TARTRATE 5 MG/5 ML VIAL IV ONE (21:32)
[2018-02-09] MEDS ORDERED: MAGNESIUM SULF RIDER 4 GM in PREMIX 1 EACH IV PRN (21:37)
[2018-02-09 22:06] LABS: Potassium 4.3 MMOL/L (3.5-5.1)
[2018-02-09] MEDS: DOCUSATE SODIUM 100 MG CAPSULE PO SCH (22:12)
[2018-02-09] MEDS: ACETAMINOPHEN 500 MG TABLET PO SCH (22:12)
[2018-02-09] MEDS: MELATONIN 3 MG TABLET PO SCH (22:13)
[2018-02-09] MEDS: diphenhydrAMINE CAP 25 MG CAPSULE PO PRN (22:13)
[2018-02-09] MEDS: AMITRIPTYLINE 25 MG TABLET PO SCH (22:13)
[2018-02-09] MEDS: ceFAZolin 1,000 MG in SYRINGE 1 EACH IV SCH (22:19)
[2018-02-09] MEDS: METOPROLOL TARTRATE 25 MG TABLET PO SCH (22:27)
[2018-02-09] MEDS: MAGNESIUM SULF RIDER 2 GM in PREMIX 1 EACH IV PRN (22:27)
[2018-02-09] MEDS: ALBUTEROL 1.25 MG/3 ML NEB RESP TX SCH (23:49)
[2018-02-10] MEDS: ALBUTEROL/IPRATROPIUM 3 ML NEB RESP TX SCH (00:35)
[2018-02-10] MEDS: methylPREDNISolone SOD SUC 125 MG/2 ML VIAL IV SCH ×2 (01:22→08:29)
[2018-02-10] MEDS: SODIUM CHLORIDE 0.9% 1,000 ML IV SCH (01:25)
[2018-02-10] MEDS: KETOROLAC 15 MG/1 ML VIAL IV SCH ×2 (02:45→08:29)
[2018-02-10] MEDS: ALBUTEROL 1.25 MG/3 ML NEB RESP TX SCH (02:50)
[2018-02-10] MEDS: ceFAZolin 1,000 MG in SYRINGE 1 EACH IV SCH (05:00)
[2018-02-10] MEDS: ACETAMINOPHEN 500 MG TABLET PO SCH ×3 (05:00→16:32)
[2018-02-10 05:09] LABS: Basophils % 0.2 % (0.0-0.8); Hematocrit 31.6 VOL% (35.7-47.0); Immature Granulocytes % 0.4 %; Immature Granulocytes Absolute 0.07 #; Lymphocytes # 0.7 10*3/uL (1.4-4.0); Lymphocytes % 3.7 % (21.3-54.2); Mean Corpuscular HGB Conc 28.8 GM/DL (32-36); Mean Corpuscular Hemoglobin 23 PG (27-34); Mean Corpuscular Volume 79.2 FL (87-102); Mean Platelet Volume 12.8 FL (9.6-12.0); Monocytes # 0.4 10*3/uL (0.11-0.8); Neutrophils # 18.5 10*3/uL (1.4-7.4); Neutrophils % 93.7 % (38.7-73.9); Platelet Count 313 T/CUMM (130-400); Red Blood Count 3.99 MC/CUMM (3.8-5.5); Red Cell Distribution Width 18.7 % (9.3-17.3); White Blood Count 19.7 T/CUMM (4-12)
[2018-02-10 05:10] LABS: Hemoglobin 9.1 GM/DL (12.0-16.0)
[2018-02-10 05:20] LABS: Osmolality,Calculated 285.5 MOS/KG (273-304); Potassium 4.3 MMOL/L (3.5-5.1)
[2018-02-10 05:21] LABS: Calcium 8.1 MG/DL (8.5-10.1); Osmolality,Calculated 283.8 MOS/KG (273-304); Potassium 4.2 MMOL/L (3.5-5.1)
[2018-02-10 05:58] LABS: Lymphocytes 1 % (20-55); Platelet Estimate Normal; Segmented Neutrophils 99 % (50-85); Total Cells Counted 100
[2018-02-10 05:59] LABS: Polychromasia Few
[2018-02-10] MEDS: LEVALBUTEROL 0.63 MG/3 ML NEB RESP TX SCH ×5 (07:15→23:00)
[2018-02-10] MEDS: LIDOCAINE 5% PATCH TRANSDERM SCH (08:28)
[2018-02-10] MEDS: SERTRALINE 50 MG TABLET PO SCH (08:29)
[2018-02-10] MEDS: DOCUSATE SODIUM 100 MG CAPSULE PO SCH ×2 (08:29→22:09)
[2018-02-10] MEDS: CYCLOBENZAPRINE 10 MG TABLET PO SCH ×3 (08:29→22:09)
[2018-02-10] MEDS: BISACODYL 5 MG TABLET PO SCH (08:29)
[2018-02-10] MEDS: PANTOPRAZOLE 40 MG TABLET PO SCH (08:29)
[2018-02-10] MEDS: ATORVASTATIN 40 MG TABLET PO SCH (08:30)
[2018-02-10] MEDS: METOPROLOL TARTRATE 25 MG TABLET PO SCH ×2 (08:30→22:10)
[2018-02-10] MEDS: CALCIUM (CARBONATE)/VITAMIN D 600 MG-400 UNIT TABLET PO SCH (08:30)
[2018-02-10] MEDS: SOLIFENACIN 5 MG TABLET PO SCH (08:30)
[2018-02-10 10:03] LABS: INR 2.4
[2018-02-10 10:05] LABS: PT Patient Result 25.6 SECS
[2018-02-10] MEDS: methylPREDNISolone SOD SUC 40 MG/1 ML VIAL IV SCH ×2 (10:39→22:11)
[2018-02-10] MEDS: TERBINAFINE 250 MG TABLET PO SCH (11:28)
[2018-02-10] MEDS: cefTRIAXone 1,000 MG in SYRINGE 1 EACH IV SCH (14:49)
[2018-02-10] MEDS ORDERED: WARFARIN 2 MG TABLET PO SCH (18:00)
[2018-02-10] MEDS: guaiFENesin/DM ER 600-30 MG TABLET PO PRN (22:09)
[2018-02-10] MEDS: CELECOXIB 200 MG CAPSULE PO SCH (22:09)
[2018-02-10] MEDS: MELATONIN 3 MG TABLET PO SCH (22:10)
[2018-02-11] MEDS: BACLOFEN 10 MG TABLET PO PRN (02:36)
[2018-02-11] MEDS: LEVALBUTEROL 0.63 MG/3 ML NEB RESP TX SCH ×3 (03:00→10:52)
[2018-02-11 05:46] LABS: Basophils % 0.2 % (0.0-0.8); Hematocrit 30.5 VOL% (35.7-47.0); Hemoglobin 8.9 GM/DL (12.0-16.0); Immature Granulocytes % 0.6 %; Lymphocytes % 5.4 % (21.3-54.2); Mean Corpuscular HGB Conc 29.2 GM/DL (32-36); Mean Corpuscular Hemoglobin 23 PG (27-34); Mean Corpuscular Volume 77.8 FL (87-102); Mean Platelet Volume 12.3 FL (9.6-12.0); Monocytes # 0.9 10*3/uL (0.11-0.8); Monocytes % 4.8 % (1.7-12.7); NRBC # 0.04 10*3/uL; Neutrophils # 16.2 10*3/uL (1.4-7.4); Platelet Count 338 T/CUMM (130-400); Red Blood Count 3.92 MC/CUMM (3.8-5.5); Red Cell Distribution Width 18.8 % (9.3-17.3); White Blood Count 18.2 T/CUMM (4-12)
[2018-02-11 05:51] LABS: INR 1.7; PT Patient Result 18.5 SECS
[2018-02-11 06:11] LABS: Osmolality,Calculated 286.4 MOS/KG (273-304); Potassium 4.4 MMOL/L (3.5-5.1)
[2018-02-11] MEDS: ASPIRIN EC 81 MG TABLET PO SCH (10:23)
[2018-02-11] MEDS: AMIODARONE 200 MG TABLET PO SCH (10:23)
[2018-02-11] MEDS: PANTOPRAZOLE 40 MG TABLET PO SCH (10:23)
[2018-02-11] MEDS: DOCUSATE SODIUM 100 MG CAPSULE PO SCH ×2 (10:23→22:42)
[2018-02-11] MEDS: SOLIFENACIN 5 MG TABLET PO SCH (10:24)
[2018-02-11] MEDS: SERTRALINE 50 MG TABLET PO SCH (10:24)
[2018-02-11] MEDS: ATORVASTATIN 40 MG TABLET PO SCH (10:24)
[2018-02-11] MEDS: TERBINAFINE 250 MG TABLET PO SCH (10:24)
[2018-02-11] MEDS: CELECOXIB 200 MG CAPSULE PO SCH (10:24)
[2018-02-11] MEDS: BISACODYL 5 MG TABLET PO SCH (10:24)
[2018-02-11] MEDS: CALCIUM (CARBONATE)/VITAMIN D 600 MG-400 UNIT TABLET PO SCH (10:24)
[2018-02-11] MEDS: CYCLOBENZAPRINE 10 MG TABLET PO SCH ×3 (10:24→22:41)
[2018-02-11] MEDS: METOPROLOL TARTRATE 25 MG TABLET PO SCH ×2 (10:24→22:42)
[2018-02-11] MEDS: methylPREDNISolone SOD SUC 40 MG/1 ML VIAL IV SCH ×2 (10:30→22:42)
[2018-02-11] MEDS: ALBUTEROL/IPRATROPIUM 3 ML NEB RESP TX SCH ×2 (14:00→19:51)
[2018-02-11] MEDS: cefTRIAXone 1,000 MG in SYRINGE 1 EACH IV SCH (15:18)
[2018-02-11] MEDS ORDERED: WARFARIN 3 MG TABLET PO SCH (18:00)
[2018-02-11] MEDS: WARFARIN 4 MG TABLET PO SCH (18:18)
[2018-02-11] MEDS: MELATONIN 3 MG TABLET PO SCH (22:41)
[2018-02-11] MEDS: guaiFENesin/DM ER 600-30 MG TABLET PO PRN (22:41)
[2018-02-12] MEDS: ALBUTEROL/IPRATROPIUM 3 ML NEB RESP TX SCH ×4 (01:40→19:31)
[2018-02-12 05:02] LABS: Basophils % 0.1 % (0.0-0.8); Hematocrit 30.4 VOL% (35.7-47.0); Immature Granulocytes Absolute 0.17 #; Lymphocytes % 5.5 % (21.3-54.2); Mean Corpuscular HGB Conc 29.6 GM/DL (32-36); Mean Corpuscular Hemoglobin 23 PG (27-34); Mean Corpuscular Volume 77.7 FL (87-102); Mean Platelet Volume 12.4 FL (9.6-12.0); Monocytes # 0.4 10*3/uL (0.11-0.8); Monocytes % 2.1 % (1.7-12.7); NRBC # 0.03 10*3/uL; Neutrophils % 91.3 % (38.7-73.9); Platelet Count 351 T/CUMM (130-400); Red Blood Count 3.91 MC/CUMM (3.8-5.5); Red Cell Distribution Width 18.7 % (9.3-17.3); White Blood Count 17.5 T/CUMM (4-12)
[2018-02-12 05:12] LABS: INR 1.6; PT Patient Result 16.9 SECS
[2018-02-12 05:22] LABS: Calcium 8.1 MG/DL (8.5-10.1); Osmolality,Calculated 285.5 MOS/KG (273-304); Potassium 4.4 MMOL/L (3.5-5.1)
[2018-02-12 05:44] LABS: Anisocytosis 1+; Lymphocytes 6 % (20-55); Microcytosis 1+; Platelet Estimate Normal; Segmented Neutrophils 91 % (50-85); Total Cells Counted 100
[2018-02-12] MEDS: CALCIUM (CARBONATE)/VITAMIN D 600 MG-400 UNIT TABLET PO SCH (09:26)
[2018-02-12] MEDS: ASPIRIN EC 81 MG TABLET PO SCH (09:26)
[2018-02-12] MEDS: BISACODYL 5 MG TABLET PO SCH (09:27)
[2018-02-12] MEDS: DOCUSATE SODIUM 100 MG CAPSULE PO SCH ×2 (09:27→21:08)
[2018-02-12] MEDS: AMIODARONE 200 MG TABLET PO SCH (09:27)
[2018-02-12] MEDS: CELECOXIB 200 MG CAPSULE PO SCH (09:27)
[2018-02-12] MEDS: CYCLOBENZAPRINE 10 MG TABLET PO SCH ×3 (09:28→21:08)
[2018-02-12] MEDS: ATORVASTATIN 40 MG TABLET PO SCH (09:28)
[2018-02-12] MEDS: PANTOPRAZOLE 40 MG TABLET PO SCH (09:28)
[2018-02-12] MEDS: METOPROLOL TARTRATE 25 MG TABLET PO SCH ×2 (09:28→21:13)
[2018-02-12] MEDS: TERBINAFINE 250 MG TABLET PO SCH (09:28)
[2018-02-12] MEDS: SCOPOLAMINE 1.5 MG PATCH TRANSDERM SCH (09:29)
[2018-02-12] MEDS: methylPREDNISolone SOD SUC 40 MG/1 ML VIAL IV SCH ×2 (09:30→21:08)
[2018-02-12] MEDS: SOLIFENACIN 5 MG TABLET PO SCH (09:30)
[2018-02-12] MEDS: SERTRALINE 50 MG TABLET PO SCH (09:30)
[2018-02-12] MEDS: MORPHINE 4 MG/1 ML VIAL IV PRN (09:31)
[2018-02-12] MEDS: SODIUM CHLORIDE 0.9% 1,000 ML IV SCH (13:35)
[2018-02-12] MEDS: cefTRIAXone 1,000 MG in SYRINGE 1 EACH IV SCH (16:39)
[2018-02-12] MEDS: WARFARIN 4 MG TABLET PO SCH (18:29)
[2018-02-12] MEDS: MELATONIN 3 MG TABLET PO SCH (21:08)
[2018-02-13] MEDS: ALBUTEROL/IPRATROPIUM 3 ML NEB RESP TX SCH ×5 (00:34→19:45)
[2018-02-13] MEDS: diphenhydrAMINE CAP 25 MG CAPSULE PO PRN ×2 (00:45→21:07)
[2018-02-13 04:34] LABS: Basophils % 0.1 % (0.0-0.8); Hematocrit 30.4 VOL% (35.7-47.0); Hemoglobin 9.1 GM/DL (12.0-16.0); Immature Granulocytes % 1.1 %; Immature Granulocytes Absolute 0.16 #; Lymphocytes # 1.1 10*3/uL (1.4-4.0); Lymphocytes % 7.8 % (21.3-54.2); Mean Corpuscular HGB Conc 29.9 GM/DL (32-36); Mean Corpuscular Hemoglobin 23 PG (27-34); Mean Corpuscular Volume 76.4 FL (87-102); Mean Platelet Volume 11.7 FL (9.6-12.0); Monocytes # 0.4 10*3/uL (0.11-0.8); Monocytes % 2.8 % (1.7-12.7); NRBC # 0.02 10*3/uL; Neutrophils # 12.5 10*3/uL (1.4-7.4); Neutrophils % 88.2 % (38.7-73.9); Platelet Count 370 T/CUMM (130-400); Red Blood Count 3.98 MC/CUMM (3.8-5.5); Red Cell Distribution Width 18.4 % (9.3-17.3); White Blood Count 14.2 T/CUMM (4-12)
[2018-02-13 04:52] LABS: Calcium 8.3 MG/DL (8.5-10.1); Potassium 4.4 MMOL/L (3.5-5.1)
[2018-02-13 05:00] LABS: INR 1.8; PT Patient Result 19.3 SECS
[2018-02-13] MEDS: DOCUSATE SODIUM 100 MG CAPSULE PO SCH ×2 (09:26→21:07)
[2018-02-13] MEDS: CELECOXIB 200 MG CAPSULE PO SCH (09:26)
[2018-02-13] MEDS: MAGNESIUM CHLORIDE 64 MG TABLET PO SCH (09:26)
[2018-02-13] MEDS: ATORVASTATIN 40 MG TABLET PO SCH (09:26)
[2018-02-13] MEDS: LIDOCAINE 5% PATCH TRANSDERM SCH (09:26)
[2018-02-13] MEDS: PANTOPRAZOLE 40 MG TABLET PO SCH (09:26)
[2018-02-13] MEDS: SOLIFENACIN 5 MG TABLET PO SCH (09:26)
[2018-02-13] MEDS: TERBINAFINE 250 MG TABLET PO SCH (09:27)
[2018-02-13] MEDS: CALCIUM (CARBONATE)/VITAMIN D 600 MG-400 UNIT TABLET PO SCH (09:27)
[2018-02-13] MEDS: AMIODARONE 200 MG TABLET PO SCH (09:27)
[2018-02-13] MEDS: CYCLOBENZAPRINE 10 MG TABLET PO SCH ×3 (09:27→21:07)
[2018-02-13] MEDS: SERTRALINE 50 MG TABLET PO SCH (09:27)
[2018-02-13] MEDS: ASPIRIN EC 81 MG TABLET PO SCH (09:27)
[2018-02-13] MEDS: BISACODYL 5 MG TABLET PO SCH (09:27)
[2018-02-13] MEDS: methylPREDNISolone SOD SUC 40 MG/1 ML VIAL IV SCH (09:35)
[2018-02-13] MEDS: METOPROLOL TARTRATE 50 MG TABLET PO SCH ×2 (09:35→21:07)
[2018-02-13] MEDS: predniSONE 20 MG TABLET PO SCH (10:22)
[2018-02-13] MEDS ORDERED: MAGNESIUM SULF RIDER 2 GM in PREMIX 1 EACH IV PRN (14:08)
[2018-02-13] MEDS ORDERED: MAGNESIUM SULF RIDER 4 GM in PREMIX 1 EACH IV PRN (14:08)
[2018-02-13] MEDS: cefTRIAXone 1,000 MG in SYRINGE 1 EACH IV SCH (14:33)
[2018-02-13] MEDS: MAGNESIUM SULF RIDER 2 GM in PREMIX 1 EACH IV PRN (14:34)
[2018-02-13] MEDS: WARFARIN 4 MG TABLET PO SCH (17:24)
[2018-02-13] MEDS: MELATONIN 3 MG TABLET PO SCH (21:06)
[2018-02-14] MEDS: ALBUTEROL/IPRATROPIUM 3 ML NEB RESP TX SCH ×4 (00:35→12:13)
[2018-02-14 04:41] LABS: Basophils % 0.1 % (0.0-0.8); Eosinophils % 0.1 % (0.00-10.9); Hematocrit 32.2 VOL% (35.7-47.0); Hemoglobin 9.9 GM/DL (12.0-16.0); Immature Granulocytes % 0.6 %; Immature Granulocytes Absolute 0.11 #; Lymphocytes % 11.2 % (21.3-54.2); Mean Corpuscular HGB Conc 30.7 GM/DL (32-36); Mean Corpuscular Hemoglobin 23 PG (27-34); Mean Corpuscular Volume 75.1 FL (87-102); Mean Platelet Volume 11.7 FL (9.6-12.0); Monocytes # 1.2 10*3/uL (0.11-0.8); Monocytes % 6.7 % (1.7-12.7); NRBC # 0.06 10*3/uL; Neutrophils # 14.5 10*3/uL (1.4-7.4); Neutrophils % 81.3 % (38.7-73.9); Platelet Count 433 T/CUMM (130-400); Red Blood Count 4.29 MC/CUMM (3.8-5.5); Red Cell Distribution Width 18.4 % (9.3-17.3); White Blood Count 17.8 T/CUMM (4-12)
[2018-02-14 05:01] LABS: Calcium 8.8 MG/DL (8.5-10.1); Osmolality,Calculated 279.8 MOS/KG (273-304); Potassium 3.6 MMOL/L (3.5-5.1)
[2018-02-14] MEDS ORDERED: ALBUTEROL/IPRATROPIUM 3 ML NEB RESP TX ONE (05:07)
[2018-02-14] MEDS ORDERED: methylPREDNISolone SOD SUC 125 MG/2 ML VIAL IV ONE (05:30)
[2018-02-14 05:34] LABS: Calcium 9.2 MG/DL (8.5-10.1); Osmolality,Calculated 280.7 MOS/KG (273-304); Potassium 3.9 MMOL/L (3.5-5.1)
[2018-02-14] MEDS: MORPHINE 4 MG/1 ML VIAL IV PRN (05:40)
[2018-02-14] MEDS ORDERED: FUROSEMIDE 40 MG/4 ML VIAL IV ONE (06:00)
[2018-02-14] MEDS: ATORVASTATIN 40 MG TABLET PO SCH (09:07)
[2018-02-14] MEDS: BISACODYL 5 MG TABLET PO SCH (09:07)
[2018-02-14] MEDS: SOLIFENACIN 5 MG TABLET PO SCH (09:07)
[2018-02-14] MEDS: SERTRALINE 50 MG TABLET PO SCH (09:07)
[2018-02-14] MEDS: DOCUSATE SODIUM 100 MG CAPSULE PO SCH (09:08)
[2018-02-14] MEDS: METOPROLOL TARTRATE 50 MG TABLET PO SCH (09:08)
[2018-02-14] MEDS: predniSONE 20 MG TABLET PO SCH (09:08)
[2018-02-14] MEDS: CYCLOBENZAPRINE 10 MG TABLET PO SCH ×2 (09:08→16:11)
[2018-02-14] MEDS: TERBINAFINE 250 MG TABLET PO SCH (09:09)
[2018-02-14] MEDS: CALCIUM (CARBONATE)/VITAMIN D 600 MG-400 UNIT TABLET PO SCH (09:09)
[2018-02-14] MEDS: CELECOXIB 200 MG CAPSULE PO SCH (09:09)
[2018-02-14] MEDS: ASPIRIN EC 81 MG TABLET PO SCH (09:09)
[2018-02-14] MEDS: AMIODARONE 200 MG TABLET PO SCH (09:13)
[2018-02-14] MEDS: MAGNESIUM CHLORIDE 64 MG TABLET PO SCH (09:13)
[2018-02-14] MEDS: PANTOPRAZOLE 40 MG TABLET PO SCH (09:13)
[2018-02-14] MEDS: LIDOCAINE 5% PATCH TRANSDERM SCH (09:15)
[2018-02-14] MEDS: ONDANSETRON 4 MG/2 ML VIAL IV PRN (09:47)
[2018-02-14 12:16] VITALS: BP 117/65
[2018-02-14] MEDS: cefTRIAXone 1,000 MG in SYRINGE 1 EACH IV SCH (16:11)
== END 2018-02-14 15:30 | disposition swing bed (61) | DRG 480 ==
LOC: N.ED 12:27 → SUATTDRO 14:50 → N.EDINP 14:50 → N.3E 17:42
PROVIDERS: ADMIT Internal Medicine; ATTEND Internal Medicine

== ENCOUNTER 2018-02-15 12:38 | Inpatient (IN) ==
[2018-02-15] MEDS ORDERED: ALBUTEROL/IPRATROPIUM 3 ML NEB RESP TX STA (13:24)
[2018-02-15] MEDS ORDERED: methylPREDNISolone SOD SUC 125 MG/2 ML VIAL IV STA (13:24)
[2018-02-15] MEDS ORDERED: SODIUM CHLORIDE 0.9% 500 ML IV STA (13:24)
[2018-02-15 14:21] LABS: ABG Base Excess 11.8 MMOL/L (-2.5-2.5); ABG HCO3 35.3 MMOL/L (20-26); ABG Oxygen Saturation 81.2 % (95-100); ABG PCO2 51.8 MM HG (35-48); ABG PH 7.468 (7.35-7.45); ABG PO2 47.7 MM HG (80-95); ABG TCO2 33.8 MMOL/L (23-27)
[2018-02-15 14:23] LABS: Basophils % 0.1 % (0.0-0.8); Hematocrit 33.9 VOL% (35.7-47.0); Hemoglobin 10.4 GM/DL (12.0-16.0); Immature Granulocytes % 1.1 %; Immature Granulocytes Absolute 0.33 #; Lymphocytes # 0.8 10*3/uL (1.4-4.0); Lymphocytes % 2.8 % (21.3-54.2); Mean Corpuscular HGB Conc 30.7 GM/DL (32-36); Mean Corpuscular Hemoglobin 23 PG (27-34); Mean Corpuscular Volume 75.5 FL (87-102); Mean Platelet Volume 11.7 FL (9.6-12.0); Monocytes # 0.8 10*3/uL (0.11-0.8); Monocytes % 2.6 % (1.7-12.7); NRBC # 0.05 10*3/uL; Neutrophils # 27.2 10*3/uL (1.4-7.4); Neutrophils % 93.4 % (38.7-73.9); Platelet Count 463 T/CUMM (130-400); Red Blood Count 4.49 MC/CUMM (3.8-5.5); Red Cell Distribution Width 18.6 % (9.3-17.3); White Blood Count 29.1 T/CUMM (4-12)
[2018-02-15 14:30] LABS: Apearance,Urine CLEAR (Clear); Bacteria,Urine Occasional /HPF (Few); Bilirubin,Urine Negative (Negative); Blood, Urine Negative (Negative); Glucose,Urine (UA) Negative (Negative); Hyaline Casts,Urine 3 /LPF (0-3); Ketones,Urine Negative (Negative); Nitrite,Urine Negative (Negative); Protein,Urine Negative; RBC,Urine 2 /HPF (0-4); Urine Color Colorless (Yellow); Urine Specific Gravity 1.005 (1.001-1.035); Urine Urobilinogen < 2.0 EU/DL (0.2-1.0); WBC,Urine 1 /HPF (0-6)
[2018-02-15 14:33] LABS: INR 2.9
[2018-02-15 14:36] LABS: PT Patient Result 30.8 SECS
[2018-02-15 14:43] LABS: Ammonia < 10 UMOL/L (11-32); Anisocytosis 1+; Elliptocytes Few; Lymphocytes 5 % (20-55); Segmented Neutrophils 93 % (50-85); Target Cells Few; Total Cells Counted 100
[2018-02-15 14:44] LABS: Hypochromasia Slight; Platelet Estimate Adequate
[2018-02-15 14:50] LABS: Alanine Aminotransferase 26 U/L (13-56); Albumin 2.6 G/DL (3.4-5.0); Alkaline Phosphatase 68 U/L (45-117); Aspartate Amino Transferase 18 U/L (0-37); Blood Urea Nitrogen 27 MG/DL (7-18); Calcium 8.4 MG/DL (8.5-10.1); Glucose 131 MG/DL (74-106); Sodium 136 MMOL/L (136-145); Total Protein 6.8 G/DL (6.4-8.3); Troponin I < 0.015 NG/ML (0.00-0.045)
[2018-02-15] MEDS ORDERED: DOCUSATE SODIUM 100 MG CAPSULE PO PRN (15:40)
[2018-02-15] MEDS ORDERED: ENOXAPARIN 40 MG/0.4 ML SYRINGE SUBCUT SCH (17:00)
[2018-02-15] MEDS ORDERED: ZIPRASIDONE 20 MG/1 ML VIAL IM PRN (17:21)
[2018-02-15] MEDS ORDERED: WARFARIN 4 MG TABLET PO SCH (18:00)
[2018-02-15] MEDS ORDERED: INFLUENZA VIRUS VACCINE 0.5 ML SYRINGE IM ONE (18:37)
[2018-02-15] MEDS: ALBUTEROL/IPRATROPIUM 3 ML NEB RESP TX SCH (19:56)
[2018-02-15] MEDS: traZODone 50 MG TABLET PO SCH (21:00)
[2018-02-16] MEDS: ALBUTEROL/IPRATROPIUM 3 ML NEB RESP TX SCH ×4 (00:18→19:30)
[2018-02-16 05:25] LABS: Basophils % 0.1 % (0.0-0.8); Hematocrit 32.5 VOL% (35.7-47.0); Hemoglobin 9.9 GM/DL (12.0-16.0); Immature Granulocytes % 0.7 %; Immature Granulocytes Absolute 0.13 #; Lymphocytes # 1.2 10*3/uL (1.4-4.0); Lymphocytes % 5.9 % (21.3-54.2); Mean Corpuscular HGB Conc 30.5 GM/DL (32-36); Mean Corpuscular Hemoglobin 23 PG (27-34); Mean Corpuscular Volume 75.6 FL (87-102); Monocytes # 0.9 10*3/uL (0.11-0.8); Monocytes % 4.5 % (1.7-12.7); NRBC # 0.03 10*3/uL; Neutrophils # 17.5 10*3/uL (1.4-7.4); Neutrophils % 88.8 % (38.7-73.9); Platelet Count 451 T/CUMM (130-400); Red Cell Distribution Width 18.9 % (9.3-17.3); White Blood Count 19.7 T/CUMM (4-12)
[2018-02-16 06:00] LABS: Calcium 8.5 MG/DL (8.5-10.1); Osmolality,Calculated 280.8 MOS/KG (273-304); Potassium 3.1 MMOL/L (3.5-5.1); Thyroid Stimulating Hormone 0.531 uIU/ml (0.358-3.74)
[2018-02-16] MEDS: ACETAMINOPHEN 325 MG TABLET PO PRN (11:02)
[2018-02-16] MEDS: FUROSEMIDE 40 MG/4 ML VIAL IV SCH (11:02)
[2018-02-16] MEDS: AMIODARONE 200 MG TABLET PO SCH (11:03)
[2018-02-16] MEDS: ASPIRIN EC 81 MG TABLET PO SCH (11:03)
[2018-02-16] MEDS: QUEtiapine 25 MG TABLET PO SCH (11:03)
[2018-02-16] MEDS: predniSONE 10 MG TABLET PO SCH (11:03)
[2018-02-16] MEDS: SERTRALINE 50 MG TABLET PO SCH (11:03)
[2018-02-16] MEDS: TERBINAFINE 250 MG TABLET PO SCH (11:04)
[2018-02-16] MEDS: CALCIUM (CARBONATE)/VITAMIN D 600 MG-400 UNIT TABLET PO SCH (11:04)
[2018-02-16] MEDS: ATORVASTATIN 40 MG TABLET PO SCH (11:05)
[2018-02-16] MEDS: PANTOPRAZOLE 40 MG TABLET PO SCH (11:05)
[2018-02-16] MEDS: CELECOXIB 200 MG CAPSULE PO SCH (11:05)
[2018-02-16] MEDS: LIDOCAINE 5% PATCH TRANSDERM SCH (15:26)
[2018-02-16] MEDS: POTASSIUM CHLORIDE 20 MEQ TABLET PO PRN ×3 (15:27→22:33)
[2018-02-17] MEDS ORDERED: SODIUM CHLORIDE 0.9% 250 ML IV ONE (00:06)
[2018-02-17] MEDS: POTASSIUM CHLORIDE 20 MEQ TABLET PO PRN (00:20)
[2018-02-17] MEDS: QUEtiapine 25 MG TABLET PO SCH ×3 (00:24→21:24)
[2018-02-17] MEDS: ALBUTEROL/IPRATROPIUM 3 ML NEB RESP TX SCH ×4 (01:03→19:31)
[2018-02-17] MEDS: ONDANSETRON 4 MG/2 ML VIAL IV PRN (03:04)
[2018-02-17] MEDS: ACETAMINOPHEN 325 MG TABLET PO PRN (03:04)
[2018-02-17] MEDS: traZODone 50 MG TABLET PO SCH (03:16)
[2018-02-17 06:44] LABS: Basophils % 0.1 % (0.0-0.8); Eosinophils # 0.1 10*3/uL (0.0-0.87); Eosinophils % 0.4 % (0.00-10.9); Hematocrit 35.7 VOL% (35.7-47.0); Hemoglobin 10.8 GM/DL (12.0-16.0); Immature Granulocytes % 0.9 %; Immature Granulocytes Absolute 0.21 #; Lymphocytes # 2.3 10*3/uL (1.4-4.0); Lymphocytes % 9.5 % (21.3-54.2); Mean Corpuscular HGB Conc 30.3 GM/DL (32-36); Mean Corpuscular Hemoglobin 23 PG (27-34); Mean Corpuscular Volume 76.8 FL (87-102); Mean Platelet Volume 13.1 FL (9.6-12.0); Monocytes # 1.2 10*3/uL (0.11-0.8); NRBC # 0.03 10*3/uL; Neutrophils # 20.1 10*3/uL (1.4-7.4); Neutrophils % 84.1 % (38.7-73.9); Platelet Count 464 T/CUMM (130-400); Red Blood Count 4.65 MC/CUMM (3.8-5.5); Red Cell Distribution Width 19.6 % (9.3-17.3); White Blood Count 23.9 T/CUMM (4-12)
[2018-02-17 06:54] LABS: Calcium 8.5 MG/DL (8.5-10.1); Osmolality,Calculated 285.7 MOS/KG (273-304); Potassium 4.8 MMOL/L (3.5-5.1)
[2018-02-17 07:12] LABS: Eosinophils 2 % (0-10); Hypochromasia 1+; Lymphocytes 6 % (20-55); Nucleated Red Blood Cells 1 (0-5); Ovalocytes Slight; Platelet Estimate Adequate; Segmented Neutrophils 86 % (50-85); Total Cells Counted 100
[2018-02-17] MEDS: LIDOCAINE 5% PATCH TRANSDERM SCH (08:32)
[2018-02-17] MEDS: AMIODARONE 200 MG TABLET PO SCH (08:33)
[2018-02-17] MEDS: TERBINAFINE 250 MG TABLET PO SCH (08:33)
[2018-02-17] MEDS: CALCIUM (CARBONATE)/VITAMIN D 600 MG-400 UNIT TABLET PO SCH (08:33)
[2018-02-17] MEDS: CELECOXIB 200 MG CAPSULE PO SCH (08:33)
[2018-02-17] MEDS: PANTOPRAZOLE 40 MG TABLET PO SCH (08:34)
[2018-02-17] MEDS: predniSONE 10 MG TABLET PO SCH (08:34)
[2018-02-17] MEDS: ASPIRIN EC 81 MG TABLET PO SCH (08:34)
[2018-02-17] MEDS: FUROSEMIDE 40 MG/4 ML VIAL IV SCH (08:34)
[2018-02-17] MEDS: ATORVASTATIN 40 MG TABLET PO SCH (08:34)
[2018-02-17] MEDS: SERTRALINE 50 MG TABLET PO SCH (08:39)
[2018-02-17] MEDS: acetaZOLAMIDE 250 MG TABLET PO SCH (11:12)
[2018-02-17 14:43] LABS: INR 2.9
[2018-02-17 14:47] LABS: PT Patient Result 30.9 SECS
[2018-02-17] MEDS: MEMANTINE 5 MG TABLET PO SCH (21:24)
[2018-02-18] MEDS: ALBUTEROL/IPRATROPIUM 3 ML NEB RESP TX SCH ×4 (00:50→19:22)
[2018-02-18] MEDS: traZODone 50 MG TABLET PO SCH ×2 (01:03→23:22)
[2018-02-18] MEDS: ACETAMINOPHEN 325 MG TABLET PO PRN (05:13)
[2018-02-18 06:37] LABS: Basophils % 0.1 % (0.0-0.8); Eosinophils # 0.5 10*3/uL (0.0-0.87); Eosinophils % 2.3 % (0.00-10.9); Hematocrit 33.9 VOL% (35.7-47.0); Hemoglobin 10.2 GM/DL (12.0-16.0); Lymphocytes # 2.3 10*3/uL (1.4-4.0); Lymphocytes % 11.9 % (21.3-54.2); Mean Corpuscular HGB Conc 30.1 GM/DL (32-36); Mean Corpuscular Hemoglobin 23 PG (27-34); Mean Corpuscular Volume 77.4 FL (87-102); Mean Platelet Volume 12.1 FL (9.6-12.0); Monocytes % 5.3 % (1.7-12.7); Neutrophils # 15.6 10*3/uL (1.4-7.4); Neutrophils % 79.4 % (38.7-73.9); Platelet Count 458 T/CUMM (130-400); Red Blood Count 4.38 MC/CUMM (3.8-5.5); Red Cell Distribution Width 19.8 % (9.3-17.3); White Blood Count 19.6 T/CUMM (4-12)
[2018-02-18 07:00] LABS: Calcium 8.5 MG/DL (8.5-10.1); Osmolality,Calculated 281.7 MOS/KG (273-304); Potassium 4.2 MMOL/L (3.5-5.1)
[2018-02-18] MEDS: QUEtiapine 25 MG TABLET PO SCH ×2 (08:48→22:36)
[2018-02-18] MEDS: ASPIRIN EC 81 MG TABLET PO SCH (08:48)
[2018-02-18] MEDS: CALCIUM (CARBONATE)/VITAMIN D 600 MG-400 UNIT TABLET PO SCH (08:48)
[2018-02-18] MEDS: acetaZOLAMIDE 250 MG TABLET PO SCH (08:48)
[2018-02-18] MEDS: AMIODARONE 200 MG TABLET PO SCH (08:49)
[2018-02-18] MEDS: MEMANTINE 5 MG TABLET PO SCH ×2 (08:49→22:36)
[2018-02-18] MEDS: SERTRALINE 50 MG TABLET PO SCH (08:49)
[2018-02-18] MEDS: LIDOCAINE 5% PATCH TRANSDERM SCH (08:49)
[2018-02-18] MEDS: PANTOPRAZOLE 40 MG TABLET PO SCH (08:49)
[2018-02-18] MEDS: TERBINAFINE 250 MG TABLET PO SCH (08:49)
[2018-02-18] MEDS: predniSONE 10 MG TABLET PO SCH (08:49)
[2018-02-18] MEDS: CELECOXIB 200 MG CAPSULE PO SCH (08:49)
[2018-02-18] MEDS: ATORVASTATIN 40 MG TABLET PO SCH (08:50)
[2018-02-18] MEDS: FUROSEMIDE 40 MG/4 ML VIAL IV SCH (10:14)
[2018-02-18] MEDS: NYSTATIN 500,000 UNIT/5 ML UDCUP SWISH/SWAL SCH ×3 (14:03→22:37)
[2018-02-18] MEDS: GABAPENTIN 300 MG CAPSULE PO SCH ×2 (15:31→22:37)
[2018-02-18] MEDS: NICOTINE 14 MG/24 HR PATCH TRANSDERM SCH (15:31)
[2018-02-19] MEDS: ALBUTEROL/IPRATROPIUM 3 ML NEB RESP TX SCH ×4 (01:47→19:47)
[2018-02-19 05:59] LABS: Basophils % 0.2 % (0.0-0.8); Eosinophils # 0.4 10*3/uL (0.0-0.87); Eosinophils % 1.8 % (0.00-10.9); Hemoglobin 10.4 GM/DL (12.0-16.0); Immature Granulocytes % 1.3 %; Lymphocytes # 2.3 10*3/uL (1.4-4.0); Lymphocytes % 9.7 % (21.3-54.2); Mean Corpuscular HGB Conc 29.7 GM/DL (32-36); Mean Corpuscular Hemoglobin 23 PG (27-34); Mean Corpuscular Volume 76.6 FL (87-102); Mean Platelet Volume 12.8 FL (9.6-12.0); Monocytes # 1.2 10*3/uL (0.11-0.8); Monocytes % 4.9 % (1.7-12.7); Neutrophils # 19.5 10*3/uL (1.4-7.4); Neutrophils % 82.1 % (38.7-73.9); Platelet Count 553 T/CUMM (130-400); Red Blood Count 4.57 MC/CUMM (3.8-5.5); Red Cell Distribution Width 19.9 % (9.3-17.3); White Blood Count 23.7 T/CUMM (4-12)
[2018-02-19 06:17] LABS: INR 1.3
[2018-02-19 06:47] LABS: Calcium 8.4 MG/DL (8.5-10.1); Osmolality,Calculated 281.8 MOS/KG (273-304); Potassium 3.9 MMOL/L (3.5-5.1)
[2018-02-19] MEDS: ATORVASTATIN 40 MG TABLET PO SCH (09:26)
[2018-02-19] MEDS: FUROSEMIDE 40 MG TABLET PO SCH (09:26)
[2018-02-19] MEDS: CALCIUM (CARBONATE)/VITAMIN D 600 MG-400 UNIT TABLET PO SCH (09:26)
[2018-02-19] MEDS: QUEtiapine 25 MG TABLET PO SCH ×2 (09:26→23:03)
[2018-02-19] MEDS: SERTRALINE 50 MG TABLET PO SCH (09:26)
[2018-02-19] MEDS: PANTOPRAZOLE 40 MG TABLET PO SCH (09:26)
[2018-02-19] MEDS: ASPIRIN EC 81 MG TABLET PO SCH (09:26)
[2018-02-19] MEDS: AMIODARONE 200 MG TABLET PO SCH (09:27)
[2018-02-19] MEDS: acetaZOLAMIDE 250 MG TABLET PO SCH (09:27)
[2018-02-19] MEDS: CELECOXIB 200 MG CAPSULE PO SCH (09:27)
[2018-02-19] MEDS: GABAPENTIN 300 MG CAPSULE PO SCH ×3 (09:27→23:03)
[2018-02-19] MEDS: MEMANTINE 5 MG TABLET PO SCH ×2 (09:27→23:04)
[2018-02-19] MEDS: predniSONE 10 MG TABLET PO SCH (09:27)
[2018-02-19] MEDS: NYSTATIN 500,000 UNIT/5 ML UDCUP SWISH/SWAL SCH ×4 (09:27→23:04)
[2018-02-19] MEDS: TERBINAFINE 250 MG TABLET PO SCH (09:27)
[2018-02-19] MEDS: NICOTINE 14 MG/24 HR PATCH TRANSDERM SCH (09:27)
[2018-02-19] MEDS: LIDOCAINE 5% PATCH TRANSDERM SCH (09:28)
[2018-02-19 12:46] LABS: Microcytosis 1+; Ovalocytes Few
[2018-02-19 12:47] LABS: Giant Platelets Few; Hypochromasia 1+; Platelet Estimate Adequate; Target Cells Few
[2018-02-19] MEDS: traZODone 50 MG TABLET PO SCH (23:04)
[2018-02-20] MEDS: ALBUTEROL/IPRATROPIUM 3 ML NEB RESP TX SCH ×4 (01:13→19:26)
[2018-02-20 06:32] LABS: Basophils % 0.1 % (0.0-0.8); Eosinophils # 0.2 10*3/uL (0.0-0.87); Hematocrit 33.3 VOL% (35.7-47.0); Hemoglobin 10.1 GM/DL (12.0-16.0); Immature Granulocytes % 1.3 %; Lymphocytes # 2.4 10*3/uL (1.4-4.0); Lymphocytes % 10.3 % (21.3-54.2); Mean Corpuscular HGB Conc 30.3 GM/DL (32-36); Mean Corpuscular Hemoglobin 23 PG (27-34); Mean Corpuscular Volume 76.2 FL (87-102); Mean Platelet Volume 12.7 FL (9.6-12.0); Monocytes # 1.2 10*3/uL (0.11-0.8); Monocytes % 5.3 % (1.7-12.7); Neutrophils # 18.7 10*3/uL (1.4-7.4); Platelet Count 537 T/CUMM (130-400); Red Blood Count 4.37 MC/CUMM (3.8-5.5); Red Cell Distribution Width 19.9 % (9.3-17.3); White Blood Count 22.9 T/CUMM (4-12)
[2018-02-20 06:41] LABS: PT Patient Result 11.3 SECS
[2018-02-20 06:49] LABS: Calcium 8.2 MG/DL (8.5-10.1); Osmolality,Calculated 279.1 MOS/KG (273-304); Potassium 3.5 MMOL/L (3.5-5.1)
[2018-02-20 06:55] LABS: Eosinophils 4 % (0-10); Hypochromasia 2+; Lymphocytes 11 % (20-55); Microcytosis 1+; Ovalocytes Slight; Segmented Neutrophils 79 % (50-85); Total Cells Counted 100
[2018-02-20 06:56] LABS: Acanthocytes Few; Target Cells Slight
[2018-02-20 06:57] LABS: Atypical Lymphocytes Few
[2018-02-20] MEDS: GABAPENTIN 300 MG CAPSULE PO SCH ×3 (10:48→21:11)
[2018-02-20] MEDS: PANTOPRAZOLE 40 MG TABLET PO SCH (10:50)
[2018-02-20] MEDS: acetaZOLAMIDE 250 MG TABLET PO SCH (10:50)
[2018-02-20] MEDS: AMIODARONE 200 MG TABLET PO SCH (10:50)
[2018-02-20] MEDS: SERTRALINE 50 MG TABLET PO SCH (10:50)
[2018-02-20] MEDS: ATORVASTATIN 40 MG TABLET PO SCH (10:50)
[2018-02-20] MEDS: QUEtiapine 25 MG TABLET PO SCH ×2 (10:50→21:11)
[2018-02-20] MEDS: predniSONE 10 MG TABLET PO SCH (10:51)
[2018-02-20] MEDS: MEMANTINE 5 MG TABLET PO SCH ×2 (10:51→21:11)
[2018-02-20] MEDS: ASPIRIN EC 81 MG TABLET PO SCH (10:51)
[2018-02-20] MEDS: TERBINAFINE 250 MG TABLET PO SCH (10:51)
[2018-02-20] MEDS: FUROSEMIDE 40 MG TABLET PO SCH (10:51)
[2018-02-20] MEDS: CALCIUM (CARBONATE)/VITAMIN D 600 MG-400 UNIT TABLET PO SCH (10:51)
[2018-02-20] MEDS: LIDOCAINE 5% PATCH TRANSDERM SCH (10:52)
[2018-02-20] MEDS: NYSTATIN 500,000 UNIT/5 ML UDCUP SWISH/SWAL SCH ×4 (10:53→21:11)
[2018-02-20] MEDS: CELECOXIB 200 MG CAPSULE PO SCH (11:20)
[2018-02-20] MEDS: NICOTINE 14 MG/24 HR PATCH TRANSDERM SCH (11:23)
[2018-02-20] MEDS: oxyCODONE IR 5 MG TABLET PO PRN (11:25)
[2018-02-20] MEDS: traZODone 50 MG TABLET PO SCH (21:11)
[2018-02-21] MEDS: ALBUTEROL/IPRATROPIUM 3 ML NEB RESP TX SCH ×4 (02:13→19:49)
[2018-02-21] MEDS: oxyCODONE IR 5 MG TABLET PO PRN ×2 (02:44→10:43)
[2018-02-21 05:26] LABS: Basophils % 0.1 % (0.0-0.8); Eosinophils # 0.1 10*3/uL (0.0-0.87); Eosinophils % 0.6 % (0.00-10.9); Hematocrit 32.1 VOL% (35.7-47.0); Hemoglobin 9.9 GM/DL (12.0-16.0); Immature Granulocytes % 1.8 %; Immature Granulocytes Absolute 0.38 #; Lymphocytes % 9.3 % (21.3-54.2); Mean Corpuscular HGB Conc 30.8 GM/DL (32-36); Mean Corpuscular Hemoglobin 24 PG (27-34); Mean Corpuscular Volume 76.4 FL (87-102); Mean Platelet Volume 13.1 FL (9.6-12.0); Monocytes # 1.3 10*3/uL (0.11-0.8); NRBC # 0.02 10*3/uL; Neutrophils # 17.3 10*3/uL (1.4-7.4); Neutrophils % 82.2 % (38.7-73.9); Platelet Count 502 T/CUMM (130-400); Red Cell Distribution Width 20.2 % (9.3-17.3); White Blood Count 21.1 T/CUMM (4-12)
[2018-02-21 05:42] LABS: Calcium 8.5 MG/DL (8.5-10.1); Osmolality,Calculated 282.4 MOS/KG (273-304); Potassium 3.2 MMOL/L (3.5-5.1)
[2018-02-21 05:55] LABS: Eosinophils 1 % (0-10); Hypochromasia Slight; Lymphocytes 8 % (20-55); Platelet Estimate Increased; Polychromasia Few; Segmented Neutrophils 89 % (50-85); Total Cells Counted 100
[2018-02-21 05:56] LABS: Target Cells Few
[2018-02-21 10:09] LABS: Appearance,CSF Clear; Lymphocytes,CSF 53 %; Monocytes,CSF 47 %; Red Blood Cell,CSF 3 C/CUMM; White Blood Cell,CSF 10 C/CUMM
[2018-02-21] MEDS: ONDANSETRON 4 MG/2 ML VIAL IV PRN ×2 (10:14→18:32)
[2018-02-21 10:32] LABS: Glucose,CSF 180 MG/DL (40-70)
[2018-02-21] MEDS: GABAPENTIN 300 MG CAPSULE PO SCH ×3 (10:41→21:06)
[2018-02-21] MEDS: PANTOPRAZOLE 40 MG TABLET PO SCH (10:41)
[2018-02-21] MEDS: NYSTATIN 500,000 UNIT/5 ML UDCUP SWISH/SWAL SCH ×4 (10:41→21:05)
[2018-02-21] MEDS: QUEtiapine 25 MG TABLET PO SCH ×2 (10:42→21:06)
[2018-02-21] MEDS: TERBINAFINE 250 MG TABLET PO SCH (10:42)
[2018-02-21] MEDS: MEMANTINE 5 MG TABLET PO SCH ×2 (10:42→21:06)
[2018-02-21] MEDS: FUROSEMIDE 40 MG TABLET PO SCH (10:42)
[2018-02-21] MEDS: acetaZOLAMIDE 250 MG TABLET PO SCH (10:43)
[2018-02-21] MEDS: ATORVASTATIN 40 MG TABLET PO SCH (10:43)
[2018-02-21] MEDS: SERTRALINE 50 MG TABLET PO SCH (10:43)
[2018-02-21] MEDS: CALCIUM (CARBONATE)/VITAMIN D 600 MG-400 UNIT TABLET PO SCH (10:44)
[2018-02-21] MEDS: AMIODARONE 200 MG TABLET PO SCH (10:44)
[2018-02-21] MEDS: CELECOXIB 200 MG CAPSULE PO SCH (10:44)
[2018-02-21] MEDS: predniSONE 10 MG TABLET PO SCH (10:44)
[2018-02-21] MEDS: ASPIRIN EC 81 MG TABLET PO SCH (10:45)
[2018-02-21] MEDS: NICOTINE 14 MG/24 HR PATCH TRANSDERM SCH (10:45)
[2018-02-21] MEDS: LIDOCAINE 5% PATCH TRANSDERM SCH (10:45)
[2018-02-21] MEDS ORDERED: BISACODYL 10 MG SUPP RECTAL PRN (12:31)
[2018-02-21] MEDS: POTASSIUM CHLORIDE 20 MEQ TABLET PO PRN (14:48)
[2018-02-21] MEDS ORDERED: WARFARIN 4 MG TABLET PO SCH (18:00)
[2018-02-21] MEDS: traZODone 50 MG TABLET PO SCH (21:06)
[2018-02-22] MEDS: ALBUTEROL/IPRATROPIUM 3 ML NEB RESP TX SCH ×3 (02:10→12:59)
[2018-02-22 05:37] LABS: Basophils % 0.2 % (0.0-0.8); Eosinophils # 0.1 10*3/uL (0.0-0.87); Eosinophils % 0.5 % (0.00-10.9); Hematocrit 32.2 VOL% (35.7-47.0); Hemoglobin 9.6 GM/DL (12.0-16.0); Immature Granulocytes % 1.3 %; Immature Granulocytes Absolute 0.25 #; Lymphocytes # 1.8 10*3/uL (1.4-4.0); Mean Corpuscular HGB Conc 29.8 GM/DL (32-36); Mean Corpuscular Hemoglobin 23 PG (27-34); Mean Corpuscular Volume 76.8 FL (87-102); Mean Platelet Volume 12.8 FL (9.6-12.0); Monocytes # 0.9 10*3/uL (0.11-0.8); Monocytes % 4.5 % (1.7-12.7); NRBC # 0.03 10*3/uL; Neutrophils # 16.5 10*3/uL (1.4-7.4); Neutrophils % 84.5 % (38.7-73.9); Platelet Count 514 T/CUMM (130-400); Red Blood Count 4.19 MC/CUMM (3.8-5.5); White Blood Count 19.4 T/CUMM (4-12)
[2018-02-22 06:08] LABS: Calcium 8.3 MG/DL (8.5-10.1); Osmolality,Calculated 277.2 MOS/KG (273-304); Potassium 3.6 MMOL/L (3.5-5.1)
[2018-02-22] MEDS ORDERED: APIXABAN 5 MG TABLET PO SCH (09:00)
[2018-02-22] MEDS: ATORVASTATIN 40 MG TABLET PO SCH (09:48)
[2018-02-22] MEDS: MEMANTINE 5 MG TABLET PO SCH (09:48)
[2018-02-22] MEDS: CELECOXIB 200 MG CAPSULE PO SCH (09:48)
[2018-02-22] MEDS: SERTRALINE 50 MG TABLET PO SCH (09:48)
[2018-02-22] MEDS: TERBINAFINE 250 MG TABLET PO SCH (09:48)
[2018-02-22] MEDS: QUEtiapine 25 MG TABLET PO SCH (09:48)
[2018-02-22] MEDS: AMIODARONE 200 MG TABLET PO SCH (09:50)
[2018-02-22] MEDS: PANTOPRAZOLE 40 MG TABLET PO SCH (09:50)
[2018-02-22] MEDS: GABAPENTIN 300 MG CAPSULE PO SCH ×2 (09:50→14:22)
[2018-02-22] MEDS: CALCIUM (CARBONATE)/VITAMIN D 600 MG-400 UNIT TABLET PO SCH (09:50)
[2018-02-22] MEDS: ASPIRIN EC 81 MG TABLET PO SCH (09:50)
[2018-02-22] MEDS: predniSONE 10 MG TABLET PO SCH (09:50)
[2018-02-22] MEDS: FUROSEMIDE 40 MG TABLET PO SCH (09:50)
[2018-02-22] MEDS: NYSTATIN 500,000 UNIT/5 ML UDCUP SWISH/SWAL SCH ×2 (09:51→14:22)
[2018-02-22] MEDS: LIDOCAINE 5% PATCH TRANSDERM SCH (09:52)
[2018-02-22] MEDS: NICOTINE 14 MG/24 HR PATCH TRANSDERM SCH (09:52)
[2018-02-22] MEDS: acetaZOLAMIDE 250 MG TABLET PO SCH (10:24)
[2018-02-22] MEDS: oxyCODONE IR 5 MG TABLET PO PRN (11:12)
[2018-02-22] MEDS: ONDANSETRON 4 MG/2 ML VIAL IV PRN (12:24)
[2018-02-22] MEDS ORDERED: POLYETHYLENE GLYCOL POWDER 17 GM PACK PO SCH (12:30)
[2018-02-22 12:42] VITALS: BP 83/56
[2018-02-22] MEDS: ACETAMINOPHEN 325 MG TABLET PO PRN (12:45)
[2018-02-23 13:36] LABS: VDRL Spinal Fluid Negative (Negative)
[2018-02-24 12:46] LABS: M. Tuberculosis PCR Result Negative (Negative); M. Tuberculosis PCR Source CSF
[2018-02-24 18:23] LABS: West Nile Virus Ab, IgG, CSF Negative (Negative); West Nile Virus Ab, IgM, CSF Negative (Negative)
== END 2018-02-22 16:05 | disposition home health service (06) | DRG 885 ==
LOC: EDBD → EDUNIT# → N.ED 12:38 → SUATTDRO 15:40 → N.EDINP 15:40 → N.5E 16:30
PROVIDERS: ADMIT Internal Medicine; ATTEND Internal Medicine Cardiovascular Disease

== ENCOUNTER 2018-02-23 21:00 | Inpatient (IN) ==
[2018-02-23 22:41] LABS: Basophils # 0.1 10*3/uL (0.0-0.2); Basophils % 0.2 % (0.0-0.8); Eosinophils # 0.1 10*3/uL (0.0-0.87); Eosinophils % 0.7 % (0.00-10.9); Hematocrit 35.9 VOL% (35.7-47.0); Hemoglobin 10.7 GM/DL (12.0-16.0); Immature Granulocytes % 1.3 %; Immature Granulocytes Absolute 0.26 #; Lymphocytes # 2.2 10*3/uL (1.4-4.0); Lymphocytes % 10.5 % (21.3-54.2); Mean Corpuscular HGB Conc 29.8 GM/DL (32-36); Mean Corpuscular Hemoglobin 23 PG (27-34); Mean Corpuscular Volume 77.7 FL (87-102); Mean Platelet Volume 12.5 FL (9.6-12.0); Monocytes # 0.7 10*3/uL (0.11-0.8); Monocytes % 3.3 % (1.7-12.7); NRBC # 0.04 10*3/uL; Neutrophils # 17.3 10*3/uL (1.4-7.4); Platelet Count 602 T/CUMM (130-400); Red Blood Count 4.62 MC/CUMM (3.8-5.5); Red Cell Distribution Width 20.8 % (9.3-17.3); White Blood Count 20.6 T/CUMM (4-12)
[2018-02-23 22:48] LABS: Apearance,Urine CLEAR (Clear); Bacteria,Urine Moderate /HPF (Few); Bilirubin,Urine Negative (Negative); Blood, Urine Negative (Negative); Glucose,Urine (UA) Negative (Negative); Hyaline Casts,Urine 16 /LPF (0-3); Ketones,Urine Negative (Negative); Mucus,Urine Occasional /LPF (Occasional); Nitrite,Urine Negative (Negative); Protein,Urine Negative; RBC,Urine 1 /HPF (0-4); Squamous Epithelial Cell,Urine Occasional /HPF (0-10); Urine Color Yellow (Yellow); Urine Specific Gravity 1.015 (1.001-1.035); Urine Urobilinogen < 2.0 EU/DL (0.2-1.0); WBC,Urine 4 /HPF (0-6)
[2018-02-23 22:53] LABS: Barbiturates Screen,Urine Negative (Negative); Benzodiazepines Screen,Urine Negative (Negative); Cannabinoid Screen,Urine Negative (Negative); Opiate Screen,Urine Positive (Negative); Phencyclidine Screen,Urine Negative (Negative)
[2018-02-23 23:07] LABS: Albumin 2.5 G/DL (3.4-5.0); Bilirubin,Total 0.6 MG/DL (0.2-1.0); Calcium 8.7 MG/DL (8.5-10.1); Osmolality,Calculated 279.8 MOS/KG (273-304); Potassium 3.5 MMOL/L (3.5-5.1); Total Protein 7.8 G/DL (6.4-8.3)
[2018-02-23] MEDS ORDERED: cefTRIAXone 1,000 MG in SODIUM CHLORIDE 0.9% 100 ML IV STA (23:09)
[2018-02-23] MEDS ORDERED: cefTRIAXone 1,000 MG VIAL ONE (23:17)
[2018-02-23] MEDS ORDERED: SODIUM CHLORIDE 0.9% 100 ML IV ONE (23:18)
[2018-02-23 23:22] LABS: ABG Base Excess 3.7 MMOL/L (-2.5-2.5); ABG HCO3 27.6 MMOL/L (20-26); ABG Oxygen Saturation 91.6 % (95-100); ABG PCO2 51.6 MM HG (35-48); ABG PH 7.371 (7.35-7.45); ABG PO2 69.1 MM HG (80-95); ABG TCO2 27.3 MMOL/L (23-27); Allen Test Positive
[2018-02-23 23:45] LABS: Sedimentation Rate-Westergren 55 MM/HR (0-30)
[2018-02-24] MEDS ORDERED: ONDANSETRON 4 MG/2 ML VIAL IV PRN (01:59)
[2018-02-24] MEDS: VANCOMYCIN INJ 1,000 MG in SODIUM CHLORIDE 0.9% 250 ML IV SCH ×2 (03:55→14:20)
[2018-02-24] MEDS: PIPERACILLIN/TAZOBACTAM 3,375 MG in SODIUM CHLORIDE 0.9% 100 ML IV SCH ×3 (06:05→22:06)
[2018-02-24] MEDS ORDERED: ALBUTEROL/IPRATROPIUM 3 ML NEB RESP TX SCH (07:00)
[2018-02-24 07:52] LABS: Basophils # 0.1 10*3/uL (0.0-0.2); Basophils % 0.3 % (0.0-0.8); Eosinophils # 0.1 10*3/uL (0.0-0.87); Eosinophils % 0.6 % (0.00-10.9); Hemoglobin 10.1 GM/DL (12.0-16.0); Immature Granulocytes % 1.2 %; Immature Granulocytes Absolute 0.25 #; Lymphocytes # 1.5 10*3/uL (1.4-4.0); Lymphocytes % 7.6 % (21.3-54.2); Mean Corpuscular HGB Conc 29.7 GM/DL (32-36); Mean Corpuscular Hemoglobin 23 PG (27-34); Mean Corpuscular Volume 77.8 FL (87-102); Mean Platelet Volume 12.8 FL (9.6-12.0); Monocytes # 0.8 10*3/uL (0.11-0.8); NRBC # 0.02 10*3/uL; Neutrophils # 17.3 10*3/uL (1.4-7.4); Neutrophils % 86.3 % (38.7-73.9); Platelet Count 482 T/CUMM (130-400); Red Blood Count 4.37 MC/CUMM (3.8-5.5); White Blood Count 20.1 T/CUMM (4-12)
[2018-02-24 07:59] LABS: Calcium 8.3 MG/DL (8.5-10.1); Osmolality,Calculated 279.7 MOS/KG (273-304); Potassium 3.3 MMOL/L (3.5-5.1)
[2018-02-24 08:13] LABS: Band Neutrophils 4 % (0-10); Eosinophils 1 % (0-10); Lymphocytes 12 % (20-55); Metamyelocytes 2 %; Segmented Neutrophils 79 % (50-85); Total Cells Counted 100
[2018-02-24 08:14] LABS: Anisocytosis 1+; Platelet Estimate Normal; Poikilocytosis Slight
[2018-02-24] MEDS: CALCIUM (CARBONATE)/VITAMIN D 600 MG-400 UNIT TABLET PO SCH (08:57)
[2018-02-24] MEDS: SOLIFENACIN 5 MG TABLET PO SCH (08:57)
[2018-02-24] MEDS: acetaZOLAMIDE 250 MG TABLET PO SCH (08:57)
[2018-02-24] MEDS: FUROSEMIDE 40 MG TABLET PO SCH (08:57)
[2018-02-24] MEDS: PANTOPRAZOLE 40 MG TABLET PO SCH (08:58)
[2018-02-24] MEDS: AMIODARONE 200 MG TABLET PO SCH (08:58)
[2018-02-24] MEDS: ASPIRIN EC 81 MG TABLET PO SCH (08:58)
[2018-02-24] MEDS: MEMANTINE 5 MG TABLET PO SCH ×2 (08:58→20:05)
[2018-02-24] MEDS: ENOXAPARIN 40 MG/0.4 ML SYRINGE SUBCUT SCH (08:58)
[2018-02-24] MEDS ORDERED: predniSONE 10 MG TABLET PO SCH (09:00)
[2018-02-24] MEDS: LIDOCAINE 5% PATCH TRANSDERM SCH (09:00)
[2018-02-24] MEDS: SERTRALINE 50 MG TABLET PO SCH (09:10)
[2018-02-24] MEDS: TERBINAFINE 250 MG TABLET PO SCH (09:10)
[2018-02-24] MEDS: ATORVASTATIN 40 MG TABLET PO SCH (09:10)
[2018-02-24 09:30] LABS: ABG Base Excess 3.9 MMOL/L (-2.5-2.5); ABG HCO3 27.9 MMOL/L (20-26); ABG Oxygen Saturation 97.1 % (95-100); ABG PCO2 49.9 MM HG (35-48); ABG PH 7.385 (7.35-7.45); ABG TCO2 27.2 MMOL/L (23-27)
[2018-02-24] MEDS: methylPREDNISolone SOD SUC 40 MG/1 ML VIAL IV SCH (14:20)
[2018-02-24] MEDS: ALBUTEROL/IPRATROPIUM 3 ML NEB RESP TX SCH ×2 (14:49→20:15)
[2018-02-24] MEDS ORDERED: POTASSIUM CHLORIDE 20 MEQ TABLET PO PRN (15:13)
[2018-02-24] MEDS: POTASSIUM CHLORIDE RIDER 10 MEQ in PREMIX 1 EACH IV PRN ×5 (15:25→23:59)
[2018-02-25] MEDS: ALBUTEROL/IPRATROPIUM 3 ML NEB RESP TX SCH ×7 (00:15→22:30)
[2018-02-25] MEDS: VANCOMYCIN INJ 1,000 MG in SODIUM CHLORIDE 0.9% 250 ML IV SCH ×2 (01:43→13:37)
[2018-02-25] MEDS: methylPREDNISolone SOD SUC 40 MG/1 ML VIAL IV SCH ×2 (01:45→13:34)
[2018-02-25 04:43] LABS: Albumin 2.1 G/DL (3.4-5.0); Bilirubin,Total 0.7 MG/DL (0.2-1.0); Calcium 8.4 MG/DL (8.5-10.1); Osmolality,Calculated 281.8 MOS/KG (273-304); Potassium 4.1 MMOL/L (3.5-5.1)
[2018-02-25] MEDS: PIPERACILLIN/TAZOBACTAM 3,375 MG in SODIUM CHLORIDE 0.9% 100 ML IV SCH ×3 (05:43→21:34)
[2018-02-25] MEDS: acetaZOLAMIDE 250 MG TABLET PO SCH (10:14)
[2018-02-25] MEDS: AMIODARONE 200 MG TABLET PO SCH (10:15)
[2018-02-25] MEDS: SOLIFENACIN 5 MG TABLET PO SCH (10:15)
[2018-02-25] MEDS: ASPIRIN EC 81 MG TABLET PO SCH (10:16)
[2018-02-25] MEDS: ATORVASTATIN 40 MG TABLET PO SCH (10:16)
[2018-02-25] MEDS: FUROSEMIDE 40 MG TABLET PO SCH (10:16)
[2018-02-25] MEDS: CALCIUM (CARBONATE)/VITAMIN D 600 MG-400 UNIT TABLET PO SCH (10:17)
[2018-02-25] MEDS: MEMANTINE 5 MG TABLET PO SCH ×2 (10:17→21:32)
[2018-02-25] MEDS: PANTOPRAZOLE 40 MG TABLET PO SCH (10:18)
[2018-02-25] MEDS: TERBINAFINE 250 MG TABLET PO SCH (10:18)
[2018-02-25] MEDS: SERTRALINE 50 MG TABLET PO SCH (10:20)
[2018-02-25] MEDS: LIDOCAINE 5% PATCH TRANSDERM SCH (10:22)
[2018-02-25] MEDS: ENOXAPARIN 40 MG/0.4 ML SYRINGE SUBCUT SCH (10:26)
[2018-02-26] MEDS: methylPREDNISolone SOD SUC 40 MG/1 ML VIAL IV SCH ×2 (01:40→13:51)
[2018-02-26] MEDS: VANCOMYCIN INJ 1,000 MG in SODIUM CHLORIDE 0.9% 250 ML IV SCH ×2 (01:43→13:51)
[2018-02-26] MEDS: ALBUTEROL/IPRATROPIUM 3 ML NEB RESP TX SCH ×6 (03:38→23:39)
[2018-02-26 06:13] LABS: Basophils % 0.1 % (0.0-0.8); Hematocrit 29.6 VOL% (35.7-47.0); Hemoglobin 8.7 GM/DL (12.0-16.0); Immature Granulocytes % 0.8 %; Immature Granulocytes Absolute 0.11 #; Lymphocytes # 0.4 10*3/uL (1.4-4.0); Lymphocytes % 3.1 % (21.3-54.2); Mean Corpuscular HGB Conc 29.4 GM/DL (32-36); Mean Corpuscular Hemoglobin 23 PG (27-34); Mean Corpuscular Volume 77.1 FL (87-102); Mean Platelet Volume 12.2 FL (9.6-12.0); Monocytes # 0.2 10*3/uL (0.11-0.8); Monocytes % 1.5 % (1.7-12.7); Neutrophils % 94.5 % (38.7-73.9); Platelet Count 483 T/CUMM (130-400); Red Blood Count 3.84 MC/CUMM (3.8-5.5); Red Cell Distribution Width 20.3 % (9.3-17.3); White Blood Count 13.8 T/CUMM (4-12)
[2018-02-26] MEDS: PIPERACILLIN/TAZOBACTAM 3,375 MG in SODIUM CHLORIDE 0.9% 100 ML IV SCH ×3 (06:21→23:31)
[2018-02-26 06:42] LABS: Lymphocytes 2 % (20-55); Platelet Estimate Normal; Polychromasia Few; Segmented Neutrophils 96 % (50-85); Total Cells Counted 100
[2018-02-26 06:45] LABS: Calcium 8.5 MG/DL (8.5-10.1); Osmolality,Calculated 296.1 MOS/KG (273-304); Potassium 3.5 MMOL/L (3.5-5.1)
[2018-02-26] MEDS ORDERED: GLUCAGON 1 MG VIAL IM PRN (08:08)
[2018-02-26] MEDS ORDERED: DEXTROSE 50% 25 GM/50 ML VIAL IV PRN (08:08)
[2018-02-26] MEDS ORDERED: INSULIN REGULAR 100 UNIT/ML SUBCUT SCH ×2 (09:12→11:30)
[2018-02-26] MEDS: ASPIRIN EC 81 MG TABLET PO SCH (09:58)
[2018-02-26] MEDS: CALCIUM (CARBONATE)/VITAMIN D 600 MG-400 UNIT TABLET PO SCH (09:58)
[2018-02-26] MEDS: ENOXAPARIN 40 MG/0.4 ML SYRINGE SUBCUT SCH (09:58)
[2018-02-26] MEDS: acetaZOLAMIDE 250 MG TABLET PO SCH (09:58)
[2018-02-26] MEDS: PANTOPRAZOLE 40 MG TABLET PO SCH (09:58)
[2018-02-26] MEDS: MEMANTINE 5 MG TABLET PO SCH ×2 (09:58→20:13)
[2018-02-26] MEDS: FUROSEMIDE 40 MG TABLET PO SCH (09:58)
[2018-02-26] MEDS: AMIODARONE 200 MG TABLET PO SCH (09:58)
[2018-02-26] MEDS: SERTRALINE 50 MG TABLET PO SCH (09:58)
[2018-02-26] MEDS: ATORVASTATIN 40 MG TABLET PO SCH (09:58)
[2018-02-26] MEDS: SOLIFENACIN 5 MG TABLET PO SCH (09:58)
[2018-02-26] MEDS: TERBINAFINE 250 MG TABLET PO SCH (09:58)
[2018-02-26] MEDS: LIDOCAINE 5% PATCH TRANSDERM SCH (09:59)
[2018-02-26] MEDS: INSULIN REGULAR 100 UNIT/ML SUBCUT SCH ×4 (09:59→23:34)
[2018-02-26] MEDS: INSULIN GLARGINE 100 UNIT/ML SUBCUT SCH (20:13)
[2018-02-27] MEDS: methylPREDNISolone SOD SUC 40 MG/1 ML VIAL IV SCH (03:37)
[2018-02-27] MEDS: VANCOMYCIN INJ 1,000 MG in SODIUM CHLORIDE 0.9% 250 ML IV SCH ×2 (03:39→13:29)
[2018-02-27] MEDS: ALBUTEROL/IPRATROPIUM 3 ML NEB RESP TX SCH ×6 (04:01→23:36)
[2018-02-27] MEDS: PIPERACILLIN/TAZOBACTAM 3,375 MG in SODIUM CHLORIDE 0.9% 100 ML IV SCH ×3 (06:20→22:13)
[2018-02-27] MEDS: INSULIN REGULAR 100 UNIT/ML SUBCUT SCH ×3 (07:41→15:56)
[2018-02-27] MEDS: FUROSEMIDE 40 MG TABLET PO SCH (08:16)
[2018-02-27] MEDS: acetaZOLAMIDE 250 MG TABLET PO SCH (08:16)
[2018-02-27] MEDS: SOLIFENACIN 5 MG TABLET PO SCH (08:17)
[2018-02-27] MEDS: CALCIUM (CARBONATE)/VITAMIN D 600 MG-400 UNIT TABLET PO SCH (08:17)
[2018-02-27] MEDS: LIDOCAINE 5% PATCH TRANSDERM SCH (08:17)
[2018-02-27] MEDS: PANTOPRAZOLE 40 MG TABLET PO SCH (08:17)
[2018-02-27] MEDS: ATORVASTATIN 40 MG TABLET PO SCH (08:17)
[2018-02-27] MEDS: SERTRALINE 50 MG TABLET PO SCH (08:17)
[2018-02-27] MEDS: AMIODARONE 200 MG TABLET PO SCH (08:17)
[2018-02-27] MEDS: ASPIRIN EC 81 MG TABLET PO SCH (08:17)
[2018-02-27] MEDS: ENOXAPARIN 40 MG/0.4 ML SYRINGE SUBCUT SCH (08:17)
[2018-02-27] MEDS: TERBINAFINE 250 MG TABLET PO SCH (08:17)
[2018-02-27] MEDS: MEMANTINE 5 MG TABLET PO SCH ×2 (08:17→22:12)
[2018-02-27] MEDS: THEOPHYLLINE ER (24 HR) 400 MG CAPSULE PO SCH (10:07)
[2018-02-27] MEDS: predniSONE 10 MG TABLET PO SCH (10:07)
[2018-02-27] MEDS: POLYETHYLENE GLYCOL POWDER 17 GM PACK PO SCH (10:58)
[2018-02-27] MEDS: INSULIN GLARGINE 100 UNIT/ML SUBCUT SCH (22:13)
[2018-02-28] MEDS: INSULIN REGULAR 100 UNIT/ML SUBCUT SCH ×5 (01:11→22:46)
[2018-02-28] MEDS: VANCOMYCIN INJ 1,000 MG in SODIUM CHLORIDE 0.9% 250 ML IV SCH (02:22)
[2018-02-28] MEDS: ALBUTEROL/IPRATROPIUM 3 ML NEB RESP TX SCH ×6 (03:24→23:00)
[2018-02-28 05:36] LABS: Basophils % 0.2 % (0.0-0.8); Eosinophils # 0.2 10*3/uL (0.0-0.87); Eosinophils % 1.6 % (0.00-10.9); Hematocrit 33.9 VOL% (35.7-47.0); Hemoglobin 10.1 GM/DL (12.0-16.0); Immature Granulocytes % 0.5 %; Immature Granulocytes Absolute 0.06 #; Lymphocytes # 1.7 10*3/uL (1.4-4.0); Lymphocytes % 13.5 % (21.3-54.2); Mean Corpuscular HGB Conc 29.8 GM/DL (32-36); Mean Corpuscular Hemoglobin 23 PG (27-34); Mean Corpuscular Volume 76.9 FL (87-102); Mean Platelet Volume 12.2 FL (9.6-12.0); Monocytes # 0.6 10*3/uL (0.11-0.8); Monocytes % 4.3 % (1.7-12.7); NRBC # 0.02 10*3/uL; Neutrophils # 10.2 10*3/uL (1.4-7.4); Neutrophils % 79.9 % (38.7-73.9); Platelet Count 538 T/CUMM (130-400); Red Blood Count 4.41 MC/CUMM (3.8-5.5); Red Cell Distribution Width 20.8 % (9.3-17.3); White Blood Count 12.8 T/CUMM (4-12)
[2018-02-28] MEDS: PIPERACILLIN/TAZOBACTAM 3,375 MG in SODIUM CHLORIDE 0.9% 100 ML IV SCH (06:47)
[2018-02-28] MEDS: ASPIRIN EC 81 MG TABLET PO SCH (08:09)
[2018-02-28] MEDS: FUROSEMIDE 40 MG TABLET PO SCH (08:10)
[2018-02-28] MEDS: ENOXAPARIN 40 MG/0.4 ML SYRINGE SUBCUT SCH (08:10)
[2018-02-28] MEDS: MEMANTINE 5 MG TABLET PO SCH ×2 (08:10→23:07)
[2018-02-28] MEDS: CALCIUM (CARBONATE)/VITAMIN D 600 MG-400 UNIT TABLET PO SCH (08:10)
[2018-02-28] MEDS: PANTOPRAZOLE 40 MG TABLET PO SCH (08:10)
[2018-02-28] MEDS: predniSONE 10 MG TABLET PO SCH (08:10)
[2018-02-28] MEDS: TERBINAFINE 250 MG TABLET PO SCH (08:10)
[2018-02-28] MEDS: AMIODARONE 200 MG TABLET PO SCH (08:10)
[2018-02-28] MEDS: SERTRALINE 50 MG TABLET PO SCH (08:10)
[2018-02-28] MEDS: POLYETHYLENE GLYCOL POWDER 17 GM PACK PO SCH (08:10)
[2018-02-28] MEDS: ATORVASTATIN 40 MG TABLET PO SCH (08:10)
[2018-02-28] MEDS: acetaZOLAMIDE 250 MG TABLET PO SCH (08:10)
[2018-02-28] MEDS: SOLIFENACIN 5 MG TABLET PO SCH (08:10)
[2018-02-28] MEDS: THEOPHYLLINE ER (24 HR) 400 MG CAPSULE PO SCH (08:10)
[2018-02-28] MEDS: LIDOCAINE 5% PATCH TRANSDERM SCH (08:11)
[2018-02-28] MEDS: POTASSIUM CHLORIDE 20 MEQ TABLET PO PRN ×3 (10:21→14:50)
[2018-02-28] MEDS ORDERED: MAGNESIUM HYDROXIDE SUSP 30 ML UDCUP PO PRN (17:15)
[2018-02-28] MEDS: BISACODYL 5 MG TABLET PO PRN (17:44)
[2018-02-28] MEDS: APIXABAN 5 MG TABLET PO SCH (23:07)
[2018-03-01] MEDS: INSULIN GLARGINE 100 UNIT/ML SUBCUT SCH ×2 (02:23→21:29)
[2018-03-01] MEDS: ALBUTEROL/IPRATROPIUM 3 ML NEB RESP TX SCH ×6 (03:00→23:12)
[2018-03-01] MEDS: POTASSIUM CHLORIDE 20 MEQ TABLET PO PRN ×3 (03:09→21:26)
[2018-03-01] MEDS ORDERED: VANCOMYCIN INJ 1,000 MG in SODIUM CHLORIDE 0.9% 250 ML IV SCH (04:00)
[2018-03-01] MEDS: MYLANTA/LIDO VISC/NYST 180 ML BOTTLE SWISH/SWAL PRN ×2 (04:42→11:31)
[2018-03-01 05:34] LABS: Basophils % 0.3 % (0.0-0.8); Eosinophils # 0.3 10*3/uL (0.0-0.87); Eosinophils % 2.4 % (0.00-10.9); Hematocrit 34.2 VOL% (35.7-47.0); Hemoglobin 10.4 GM/DL (12.0-16.0); Immature Granulocytes % 0.9 %; Immature Granulocytes Absolute 0.12 #; Lymphocytes # 2.3 10*3/uL (1.4-4.0); Mean Corpuscular HGB Conc 30.4 GM/DL (32-36); Mean Corpuscular Hemoglobin 23 PG (27-34); Mean Corpuscular Volume 75.5 FL (87-102); Mean Platelet Volume 12.5 FL (9.6-12.0); Monocytes # 0.5 10*3/uL (0.11-0.8); Monocytes % 3.8 % (1.7-12.7); Neutrophils # 10.2 10*3/uL (1.4-7.4); Neutrophils % 75.6 % (38.7-73.9); Platelet Count 512 T/CUMM (130-400); Red Blood Count 4.53 MC/CUMM (3.8-5.5); Red Cell Distribution Width 20.6 % (9.3-17.3); White Blood Count 13.5 T/CUMM (4-12)
[2018-03-01 05:53] LABS: Calcium 9.2 MG/DL (8.5-10.1); Osmolality,Calculated 280.5 MOS/KG (273-304); Potassium 3.5 MMOL/L (3.5-5.1)
[2018-03-01] MEDS: INSULIN REGULAR 100 UNIT/ML SUBCUT SCH ×4 (09:32→22:14)
[2018-03-01] MEDS: POLYETHYLENE GLYCOL POWDER 17 GM PACK PO SCH (09:32)
[2018-03-01] MEDS: SOLIFENACIN 5 MG TABLET PO SCH (09:33)
[2018-03-01] MEDS: LIDOCAINE 5% PATCH TRANSDERM SCH (09:33)
[2018-03-01] MEDS: acetaZOLAMIDE 250 MG TABLET PO SCH (09:33)
[2018-03-01] MEDS: THEOPHYLLINE ER (24 HR) 400 MG CAPSULE PO SCH (09:34)
[2018-03-01] MEDS: CALCIUM (CARBONATE)/VITAMIN D 600 MG-400 UNIT TABLET PO SCH (09:34)
[2018-03-01] MEDS: MEMANTINE 5 MG TABLET PO SCH ×2 (09:34→21:24)
[2018-03-01] MEDS: ASPIRIN EC 81 MG TABLET PO SCH (09:34)
[2018-03-01] MEDS: PANTOPRAZOLE 40 MG TABLET PO SCH (09:34)
[2018-03-01] MEDS: ATORVASTATIN 40 MG TABLET PO SCH (09:34)
[2018-03-01] MEDS: AMIODARONE 200 MG TABLET PO SCH (09:34)
[2018-03-01] MEDS: SERTRALINE 50 MG TABLET PO SCH (09:34)
[2018-03-01] MEDS: predniSONE 10 MG TABLET PO SCH (09:35)
[2018-03-01] MEDS: TERBINAFINE 250 MG TABLET PO SCH (09:40)
[2018-03-01] MEDS: FUROSEMIDE 40 MG TABLET PO SCH (09:40)
[2018-03-01] MEDS: APIXABAN 5 MG TABLET PO SCH ×2 (09:40→21:24)
[2018-03-01] MEDS: ACETAMINOPHEN 325 MG TABLET PO PRN ×2 (15:24→19:32)
[2018-03-01] MEDS: SULFAMETHOX/TRIMETHOPRIM 800-160 MG TABLET PO SCH (21:24)
[2018-03-02] MEDS: ONDANSETRON ODT 4 MG TABLET PO PRN ×4 (00:23→21:43)
[2018-03-02] MEDS: ALBUTEROL/IPRATROPIUM 3 ML NEB RESP TX SCH ×6 (03:09→22:56)
[2018-03-02 05:32] LABS: Basophils # 0.1 10*3/uL (0.0-0.2); Basophils % 0.5 % (0.0-0.8); Eosinophils # 0.2 10*3/uL (0.0-0.87); Eosinophils % 1.6 % (0.00-10.9); Hemoglobin 11.4 GM/DL (12.0-16.0); Immature Granulocytes % 1.1 %; Immature Granulocytes Absolute 0.14 #; Lymphocytes # 1.7 10*3/uL (1.4-4.0); Mean Corpuscular Hemoglobin 23 PG (27-34); Mean Platelet Volume 11.9 FL (9.6-12.0); Monocytes # 0.5 10*3/uL (0.11-0.8); Monocytes % 4.2 % (1.7-12.7); Neutrophils # 10.2 10*3/uL (1.4-7.4); Neutrophils % 79.6 % (38.7-73.9); Platelet Count 463 T/CUMM (130-400); Red Cell Distribution Width 21.2 % (9.3-17.3); White Blood Count 12.8 T/CUMM (4-12)
[2018-03-02 05:44] LABS: Calcium 9.5 MG/DL (8.5-10.1); Potassium 3.9 MMOL/L (3.5-5.1)
[2018-03-02] MEDS: INSULIN REGULAR 100 UNIT/ML SUBCUT SCH ×4 (09:12→21:44)
[2018-03-02] MEDS: TERBINAFINE 250 MG TABLET PO SCH (09:13)
[2018-03-02] MEDS: POLYETHYLENE GLYCOL POWDER 17 GM PACK PO SCH (09:13)
[2018-03-02] MEDS: SULFAMETHOX/TRIMETHOPRIM 800-160 MG TABLET PO SCH ×2 (09:13→21:43)
[2018-03-02] MEDS: FUROSEMIDE 40 MG TABLET PO SCH (09:13)
[2018-03-02] MEDS: acetaZOLAMIDE 250 MG TABLET PO SCH (09:13)
[2018-03-02] MEDS: THEOPHYLLINE ER (24 HR) 400 MG CAPSULE PO SCH (09:13)
[2018-03-02] MEDS: AMIODARONE 200 MG TABLET PO SCH (09:13)
[2018-03-02] MEDS: CALCIUM (CARBONATE)/VITAMIN D 600 MG-400 UNIT TABLET PO SCH (09:14)
[2018-03-02] MEDS: APIXABAN 5 MG TABLET PO SCH ×2 (09:14→21:43)
[2018-03-02] MEDS: LIDOCAINE 5% PATCH TRANSDERM SCH (09:14)
[2018-03-02] MEDS: MEMANTINE 5 MG TABLET PO SCH ×2 (09:14→21:43)
[2018-03-02] MEDS: SOLIFENACIN 5 MG TABLET PO SCH (09:14)
[2018-03-02] MEDS: ASPIRIN EC 81 MG TABLET PO SCH (09:14)
[2018-03-02] MEDS: predniSONE 10 MG TABLET PO SCH (09:14)
[2018-03-02] MEDS: ATORVASTATIN 40 MG TABLET PO SCH (09:14)
[2018-03-02] MEDS: PANTOPRAZOLE 40 MG TABLET PO SCH (09:14)
[2018-03-02] MEDS: SERTRALINE 50 MG TABLET PO SCH (09:14)
[2018-03-02 11:05] LABS: Allen Test Positive
[2018-03-02 11:06] LABS: ABG Base Excess 4.9 MMOL/L (-2.5-2.5); ABG HCO3 27.7 MMOL/L (20-26); ABG Oxygen Saturation 89.4 % (95-100); ABG PCO2 34.4 MM HG (35-48); ABG PH 7.523 (7.35-7.45); ABG PO2 58.8 MM HG (80-95); ABG TCO2 28.7 MMOL/L (23-27)
[2018-03-02] MEDS: ARIPiprazole 5 MG TABLET PO SCH (21:43)
[2018-03-02] MEDS: INSULIN GLARGINE 100 UNIT/ML SUBCUT SCH (21:44)
[2018-03-03] MEDS: ALBUTEROL/IPRATROPIUM 3 ML NEB RESP TX SCH ×6 (02:42→23:59)
[2018-03-03] MEDS: ONDANSETRON ODT 4 MG TABLET PO PRN ×2 (05:37→10:43)
[2018-03-03 05:40] LABS: Calcium 10.2 MG/DL (8.5-10.1); Osmolality,Calculated 278.2 MOS/KG (273-304); Potassium 3.1 MMOL/L (3.5-5.1)
[2018-03-03] MEDS: INSULIN REGULAR 100 UNIT/ML SUBCUT SCH ×4 (10:41→21:16)
[2018-03-03] MEDS: TERBINAFINE 250 MG TABLET PO SCH (10:42)
[2018-03-03] MEDS: FUROSEMIDE 40 MG TABLET PO SCH (10:44)
[2018-03-03] MEDS: THEOPHYLLINE ER (24 HR) 400 MG CAPSULE PO SCH (10:44)
[2018-03-03] MEDS: SERTRALINE 50 MG TABLET PO SCH (10:44)
[2018-03-03] MEDS: ATORVASTATIN 40 MG TABLET PO SCH (10:44)
[2018-03-03] MEDS: APIXABAN 5 MG TABLET PO SCH ×2 (10:44→21:13)
[2018-03-03] MEDS: acetaZOLAMIDE 250 MG TABLET PO SCH (10:44)
[2018-03-03] MEDS: PANTOPRAZOLE 40 MG TABLET PO SCH (10:44)
[2018-03-03] MEDS: CALCIUM (CARBONATE)/VITAMIN D 600 MG-400 UNIT TABLET PO SCH (10:45)
[2018-03-03] MEDS: predniSONE 10 MG TABLET PO SCH (10:45)
[2018-03-03] MEDS: SULFAMETHOX/TRIMETHOPRIM 800-160 MG TABLET PO SCH (10:45)
[2018-03-03] MEDS: MEMANTINE 5 MG TABLET PO SCH ×2 (10:45→21:13)
[2018-03-03] MEDS: LIDOCAINE 5% PATCH TRANSDERM SCH (10:45)
[2018-03-03] MEDS: AMIODARONE 200 MG TABLET PO SCH (10:45)
[2018-03-03] MEDS: ASPIRIN EC 81 MG TABLET PO SCH (10:45)
[2018-03-03] MEDS: POLYETHYLENE GLYCOL POWDER 17 GM PACK PO SCH (10:46)
[2018-03-03] MEDS: NITROFURANTOIN MACROCRYSTALS 100 MG CAPSULE PO SCH ×2 (16:37→21:13)
[2018-03-03] MEDS: ACETAMINOPHEN 325 MG TABLET PO PRN (16:37)
[2018-03-03] MEDS: POTASSIUM CHLORIDE 20 MEQ TABLET PO SCH ×3 (16:37→21:13)
[2018-03-03] MEDS ORDERED: TUBERCULIN SKIN TEST 0.1 ML SYRINGE INTRADERM ONE (17:47)
[2018-03-03] MEDS: ARIPiprazole 5 MG TABLET PO SCH (21:13)
[2018-03-03] MEDS: INSULIN GLARGINE 100 UNIT/ML SUBCUT SCH (21:16)
[2018-03-04] MEDS: ALBUTEROL/IPRATROPIUM 3 ML NEB RESP TX SCH ×5 (02:51→20:25)
[2018-03-04] MEDS: NITROFURANTOIN MACROCRYSTALS 100 MG CAPSULE PO SCH ×2 (04:23→08:13)
[2018-03-04 05:29] LABS: Calcium 10.3 MG/DL (8.5-10.1); Osmolality,Calculated 280.4 MOS/KG (273-304); Potassium 3.8 MMOL/L (3.5-5.1)
[2018-03-04] MEDS: INSULIN REGULAR 100 UNIT/ML SUBCUT SCH ×4 (08:00→22:11)
[2018-03-04] MEDS: ONDANSETRON ODT 4 MG TABLET PO PRN ×2 (08:11→19:42)
[2018-03-04] MEDS: predniSONE 10 MG TABLET PO SCH (08:12)
[2018-03-04] MEDS: MEMANTINE 5 MG TABLET PO SCH ×2 (08:12→22:11)
[2018-03-04] MEDS: AMIODARONE 200 MG TABLET PO SCH (08:12)
[2018-03-04] MEDS: ASPIRIN EC 81 MG TABLET PO SCH (08:12)
[2018-03-04] MEDS: acetaZOLAMIDE 250 MG TABLET PO SCH (08:12)
[2018-03-04] MEDS: SERTRALINE 50 MG TABLET PO SCH (08:12)
[2018-03-04] MEDS: THEOPHYLLINE ER (24 HR) 400 MG CAPSULE PO SCH (08:12)
[2018-03-04] MEDS: FUROSEMIDE 40 MG TABLET PO SCH (08:12)
[2018-03-04] MEDS: APIXABAN 5 MG TABLET PO SCH ×2 (08:12→22:10)
[2018-03-04] MEDS: PANTOPRAZOLE 40 MG TABLET PO SCH (08:12)
[2018-03-04] MEDS: LIDOCAINE 5% PATCH TRANSDERM SCH (08:13)
[2018-03-04] MEDS: CALCIUM (CARBONATE)/VITAMIN D 600 MG-400 UNIT TABLET PO SCH (08:13)
[2018-03-04] MEDS: TERBINAFINE 250 MG TABLET PO SCH (10:19)
[2018-03-04] MEDS: ATORVASTATIN 40 MG TABLET PO SCH (10:19)
[2018-03-04] MEDS: POLYETHYLENE GLYCOL POWDER 17 GM PACK PO SCH (10:19)
[2018-03-04] MEDS ORDERED: SULFAMETHOX/TRIMETHOPRIM 400-80 MG TABLET PO SCH (21:00)
[2018-03-04] MEDS ORDERED: PROMETHAZINE INJ 12.5 MG in SODIUM CHLORIDE 0.9% 50 ML IV ONE (22:03)
[2018-03-04] MEDS: ARIPiprazole 5 MG TABLET PO SCH (22:10)
[2018-03-04] MEDS: INSULIN GLARGINE 100 UNIT/ML SUBCUT SCH (22:11)
[2018-03-04] MEDS ORDERED: PROMETHAZINE 25 MG/1 ML VIAL IM ONE (22:30)
[2018-03-05] MEDS: ALBUTEROL/IPRATROPIUM 3 ML NEB RESP TX SCH ×7 (00:37→23:29)
[2018-03-05] MEDS ORDERED: ONDANSETRON 4 MG/2 ML VIAL IM PRN (01:37)
[2018-03-05 02:04] LABS: Basophils # 0.1 10*3/uL (0.0-0.2); Basophils % 0.2 % (0.0-0.8); Hematocrit 39.8 VOL% (35.7-47.0); Immature Granulocytes Absolute 0.25 #; Lymphocytes # 1.1 10*3/uL (1.4-4.0); Lymphocytes % 4.2 % (21.3-54.2); Mean Corpuscular HGB Conc 30.2 GM/DL (32-36); Mean Corpuscular Hemoglobin 23 PG (27-34); Mean Corpuscular Volume 77.7 FL (87-102); Mean Platelet Volume 12.5 FL (9.6-12.0); Neutrophils # 22.9 10*3/uL (1.4-7.4); Neutrophils % 90.6 % (38.7-73.9); Platelet Count 504 T/CUMM (130-400); Red Blood Count 5.12 MC/CUMM (3.8-5.5); Red Cell Distribution Width 22.4 % (9.3-17.3); White Blood Count 25.3 T/CUMM (4-12)
[2018-03-05] MEDS ORDERED: ONDANSETRON 4 MG/2 ML VIAL IM ONE (02:14)
[2018-03-05] MEDS ORDERED: ONDANSETRON 4 MG/2 ML VIAL ONE (02:20)
[2018-03-05 02:26] LABS: Albumin 3.3 G/DL (3.4-5.0); Bilirubin,Total 0.6 MG/DL (0.2-1.0); Calcium 9.6 MG/DL (8.5-10.1); Osmolality,Calculated 278.7 MOS/KG (273-304); Potassium 3.8 MMOL/L (3.5-5.1)
[2018-03-05 02:42] LABS: Lymphocytes 4 % (20-55); Segmented Neutrophils 91 % (50-85)
[2018-03-05 02:43] LABS: Giant Platelets Few; Hypochromasia Slight; Ovalocytes 1+; Platelet Estimate Increased; Polychromasia Few; Reactive Lymphocytes 3+; Total Cells Counted 100
[2018-03-05] MEDS ORDERED: METOCLOPRAMIDE 10 MG/2 ML VIAL IM PRN (06:08)
[2018-03-05] MEDS ORDERED: LORazepam 2 MG/1 ML VIAL IV ONE (07:14)
[2018-03-05] MEDS ORDERED: ONDANSETRON 4 MG/2 ML VIAL IV PRN (07:43)
[2018-03-05 09:30] LABS: Lactic Acid 2.8 MMOL/L (0.4-2.0)
[2018-03-05] MEDS ORDERED: PROMETHAZINE 25 MG/1 ML VIAL IM PRN (10:18)
[2018-03-05] MEDS: SODIUM CHLORIDE 0.9% 1,000 ML IV SCH ×3 (10:30→20:51)
[2018-03-05] MEDS: INSULIN REGULAR 100 UNIT/ML SUBCUT SCH ×4 (10:50→20:40)
[2018-03-05] MEDS: MEROPENEM 500 MG in SODIUM CHLORIDE 0.9% 100 ML IV SCH ×2 (10:54→20:40)
[2018-03-05] MEDS: THEOPHYLLINE ER (24 HR) 400 MG CAPSULE PO SCH (10:55)
[2018-03-05] MEDS: CALCIUM (CARBONATE)/VITAMIN D 600 MG-400 UNIT TABLET PO SCH (10:55)
[2018-03-05] MEDS: PANTOPRAZOLE 40 MG TABLET PO SCH (10:55)
[2018-03-05] MEDS: predniSONE 10 MG TABLET PO SCH (10:55)
[2018-03-05] MEDS: SERTRALINE 50 MG TABLET PO SCH (10:55)
[2018-03-05] MEDS: APIXABAN 5 MG TABLET PO SCH ×2 (10:55→20:40)
[2018-03-05] MEDS: MEMANTINE 5 MG TABLET PO SCH ×2 (10:55→20:40)
[2018-03-05] MEDS: acetaZOLAMIDE 250 MG TABLET PO SCH (10:55)
[2018-03-05] MEDS: ATORVASTATIN 40 MG TABLET PO SCH (10:55)
[2018-03-05] MEDS: POLYETHYLENE GLYCOL POWDER 17 GM PACK PO SCH ×2 (10:56→19:06)
[2018-03-05] MEDS: LIDOCAINE 5% PATCH TRANSDERM SCH (10:56)
[2018-03-05] MEDS: ASPIRIN EC 81 MG TABLET PO SCH (10:56)
[2018-03-05] MEDS: TERBINAFINE 250 MG TABLET PO SCH (10:56)
[2018-03-05] MEDS: AMIODARONE 200 MG TABLET PO SCH (10:56)
[2018-03-05 12:28] LABS: Apearance,Urine Slightly Hazy (Clear); Bilirubin,Urine Negative (Negative); Blood, Urine Negative (Negative); Glucose,Urine (UA) Negative (Negative); Hyaline Casts,Urine 154 /LPF (0-3); Ketones,Urine 5 mg/dL (Negative); Mucus,Urine Few /LPF (Occasional); Nitrite,Urine Negative (Negative); Protein,Urine Negative; RBC,Urine 11 /HPF (0-4); Squamous Epithelial Cell,Urine Occasional /HPF (0-10); Urine Color Amber (Yellow); Urine Specific Gravity 1.016 (1.001-1.035); Urine Urobilinogen < 2.0 EU/DL (0.2-1.0); WBC,Urine 1 /HPF (0-6)
[2018-03-05] MEDS: PANTOPRAZOLE 40 MG VIAL IV SCH (13:10)
[2018-03-05] MEDS ORDERED: SODIUM PHOSPHATE ENEMA 133 ML BOTTLE RECTAL ONE (15:14)
[2018-03-05] MEDS ORDERED: MAGNESIUM HYDROXIDE SUSP 30 ML UDCUP PEG ONE (15:37)
[2018-03-05 17:16] LABS: ABG Base Excess -2.6 MMOL/L (-2.5-2.5); ABG HCO3 21.6 MMOL/L (20-26); ABG Oxygen Saturation 66.9 % (95-100); ABG PCO2 36.3 MM HG (35-48); ABG PH 7.387 (7.35-7.45); ABG PO2 41.2 MM HG (80-95); ABG TCO2 19.6 MMOL/L (23-27)
[2018-03-05] MEDS: VANCOMYCIN INJ 1,000 MG in SODIUM CHLORIDE 0.9% 250 ML IV SCH (17:30)
[2018-03-05] MEDS ORDERED: PROPOFOL 1,000 MG/100 ML BOTTLE IV ONE (17:32)
[2018-03-05] MEDS ORDERED: METOPROLOL TARTRATE 5 MG/5 ML VIAL IV ONE (17:41)
[2018-03-05] MEDS ORDERED: ADENOSINE 6 MG/2 ML VIAL ONE (17:42)
[2018-03-05] MEDS ORDERED: ADENOSINE 6 MG/2 ML VIAL IV ONE (17:48)
[2018-03-05] MEDS: METOPROLOL TARTRATE 5 MG/5 ML VIAL IV SCH ×2 (17:50→17:55)
[2018-03-05] MEDS ORDERED: SODIUM CHLORIDE 0.9% 1,000 ML IV ONE (17:54)
[2018-03-05 18:20] LABS: Basophils % 0.2 % (0.0-0.8); Hematocrit 31.5 VOL% (35.7-47.0); Hemoglobin 9.6 GM/DL (12.0-16.0); Immature Granulocytes % 1.8 %; Immature Granulocytes Absolute 0.46 #; Lymphocytes # 0.7 10*3/uL (1.4-4.0); Lymphocytes % 2.6 % (21.3-54.2); Mean Corpuscular HGB Conc 30.5 GM/DL (32-36); Mean Corpuscular Hemoglobin 24 PG (27-34); Mean Corpuscular Volume 78.6 FL (87-102); Mean Platelet Volume 13.2 FL (9.6-12.0); Monocytes # 1.1 10*3/uL (0.11-0.8); Monocytes % 4.3 % (1.7-12.7); NRBC # 0.02 10*3/uL; Neutrophils # 23.6 10*3/uL (1.4-7.4); Neutrophils % 91.1 % (38.7-73.9); Platelet Count 410 T/CUMM (130-400); Red Blood Count 4.01 MC/CUMM (3.8-5.5); Red Cell Distribution Width 22.4 % (9.3-17.3); White Blood Count 25.9 T/CUMM (4-12)
[2018-03-05 18:46] LABS: Calcium 7.3 MG/DL (8.5-10.1); Osmolality,Calculated 292.8 MOS/KG (273-304); Potassium 3.2 MMOL/L (3.5-5.1)
[2018-03-05 18:50] LABS: Lactic Acid 2.7 MMOL/L (0.4-2.0)
[2018-03-05 20:21] LABS: Band Neutrophils 2 % (0-10); Lymphocytes 3 % (20-55); Platelet Estimate Normal; Segmented Neutrophils 91 % (50-85); Total Cells Counted 100
[2018-03-05 20:23] LABS: Elliptocytes Few; Polychromasia 1+
[2018-03-05 20:24] LABS: Acanthocytes Few; Microcytosis 1+
[2018-03-05] MEDS: POTASSIUM CHLORIDE RIDER 20 MEQ in PREMIX 1 EACH IV PRN ×2 (20:39→22:40)
[2018-03-05] MEDS: ARIPiprazole 5 MG TABLET PO SCH (20:40)
[2018-03-05] MEDS: INSULIN GLARGINE 100 UNIT/ML SUBCUT SCH (20:40)
[2018-03-06] MEDS: ALBUTEROL/IPRATROPIUM 3 ML NEB RESP TX SCH ×6 (03:23→23:01)
[2018-03-06 03:36] LABS: Basophils # 0.1 10*3/uL (0.0-0.2); Basophils % 0.2 % (0.0-0.8); Hematocrit 32.4 VOL% (35.7-47.0); Hemoglobin 9.8 GM/DL (12.0-16.0); Immature Granulocytes % 1.7 %; Immature Granulocytes Absolute 0.43 #; Lymphocytes # 1.1 10*3/uL (1.4-4.0); Lymphocytes % 4.4 % (21.3-54.2); Mean Corpuscular HGB Conc 30.2 GM/DL (32-36); Mean Corpuscular Hemoglobin 23 PG (27-34); Mean Corpuscular Volume 77.3 FL (87-102); Mean Platelet Volume 12.8 FL (9.6-12.0); Monocytes # 0.9 10*3/uL (0.11-0.8); Monocytes % 3.5 % (1.7-12.7); NRBC # 0.02 10*3/uL; Neutrophils # 23.4 10*3/uL (1.4-7.4); Neutrophils % 90.2 % (38.7-73.9); Platelet Count 446 T/CUMM (130-400); Red Blood Count 4.19 MC/CUMM (3.8-5.5); Red Cell Distribution Width 22.8 % (9.3-17.3); White Blood Count 25.9 T/CUMM (4-12)
[2018-03-06 04:05] LABS: Albumin 2.3 G/DL (3.4-5.0); Bilirubin,Total 0.5 MG/DL (0.2-1.0); Calcium 7.8 MG/DL (8.5-10.1); Osmolality,Calculated 289.7 MOS/KG (273-304); Potassium 3.3 MMOL/L (3.5-5.1); Total Protein 6.1 G/DL (6.4-8.3)
[2018-03-06] MEDS: POTASSIUM CHLORIDE RIDER 20 MEQ in PREMIX 1 EACH IV PRN ×3 (04:10→17:32)
[2018-03-06 04:44] LABS: Anisocytosis 1+; Lymphocytes 3 % (20-55); Segmented Neutrophils 97 % (50-85); Total Cells Counted 100
[2018-03-06 04:45] LABS: Acanthocytes 1+; Hypochromasia 1+; Ovalocytes 1+; Platelet Estimate Normal
[2018-03-06] MEDS: SODIUM CHLORIDE 0.9% 1,000 ML IV SCH ×3 (07:48→16:35)
[2018-03-06] MEDS: INSULIN REGULAR 100 UNIT/ML SUBCUT SCH ×4 (07:49→22:51)
[2018-03-06] MEDS: MEROPENEM 500 MG in SODIUM CHLORIDE 0.9% 100 ML IV SCH ×2 (09:16→22:50)
[2018-03-06] MEDS: LIDOCAINE 5% PATCH TRANSDERM SCH (09:16)
[2018-03-06] MEDS: AMIODARONE 200 MG TABLET PO SCH (09:17)
[2018-03-06] MEDS: predniSONE 10 MG TABLET PO SCH (09:17)
[2018-03-06] MEDS: CALCIUM (CARBONATE)/VITAMIN D 600 MG-400 UNIT TABLET PO SCH (09:17)
[2018-03-06] MEDS: ASPIRIN EC 81 MG TABLET PO SCH (09:17)
[2018-03-06] MEDS: acetaZOLAMIDE 250 MG TABLET PO SCH (09:17)
[2018-03-06] MEDS: MEMANTINE 5 MG TABLET PO SCH ×2 (09:17→22:50)
[2018-03-06] MEDS: APIXABAN 5 MG TABLET PO SCH ×2 (09:17→22:51)
[2018-03-06] MEDS: ATORVASTATIN 40 MG TABLET PO SCH (09:17)
[2018-03-06] MEDS: SERTRALINE 50 MG TABLET PO SCH (09:17)
[2018-03-06] MEDS: THEOPHYLLINE ER (24 HR) 400 MG CAPSULE PO SCH (09:17)
[2018-03-06] MEDS: LACTULOSE 20 GM/30 ML UDCUP PO SCH ×4 (09:18→23:15)
[2018-03-06] MEDS: PANTOPRAZOLE 40 MG VIAL IV SCH (09:18)
[2018-03-06] MEDS: POLYETHYLENE GLYCOL POWDER 17 GM PACK PO SCH (09:21)
[2018-03-06] MEDS: TERBINAFINE 250 MG TABLET PO SCH (09:29)
[2018-03-06] MEDS: INSULIN GLARGINE 100 UNIT/ML SUBCUT SCH (22:51)
[2018-03-06] MEDS: ARIPiprazole 5 MG TABLET PO SCH (22:51)
[2018-03-07] MEDS: SODIUM CHLORIDE 0.9% 1,000 ML IV SCH (01:31)
[2018-03-07] MEDS: LACTULOSE 20 GM/30 ML UDCUP PO SCH ×6 (01:31→21:34)
[2018-03-07] MEDS: ALBUTEROL/IPRATROPIUM 3 ML NEB RESP TX SCH ×6 (02:52→23:45)
[2018-03-07 05:19] LABS: Basophils % 0.2 % (0.0-0.8); Hematocrit 31.2 VOL% (35.7-47.0); Hemoglobin 9.2 GM/DL (12.0-16.0); Immature Granulocytes % 1.3 %; Immature Granulocytes Absolute 0.32 #; Lymphocytes # 0.8 10*3/uL (1.4-4.0); Lymphocytes % 3.4 % (21.3-54.2); Mean Corpuscular HGB Conc 29.5 GM/DL (32-36); Mean Corpuscular Hemoglobin 23 PG (27-34); Mean Corpuscular Volume 79.4 FL (87-102); Monocytes # 0.9 10*3/uL (0.11-0.8); Monocytes % 3.8 % (1.7-12.7); NRBC # 0.03 10*3/uL; Neutrophils # 22.1 10*3/uL (1.4-7.4); Neutrophils % 91.3 % (38.7-73.9); Platelet Count 480 T/CUMM (130-400); Red Blood Count 3.93 MC/CUMM (3.8-5.5); Red Cell Distribution Width 23.5 % (9.3-17.3); White Blood Count 24.1 T/CUMM (4-12)
[2018-03-07] MEDS: VANCOMYCIN INJ 1,000 MG in SODIUM CHLORIDE 0.9% 250 ML IV SCH (05:33)
[2018-03-07] MEDS: POTASSIUM CHLORIDE RIDER 20 MEQ in PREMIX 1 EACH IV PRN ×2 (05:36→07:36)
[2018-03-07 05:44] LABS: Elliptocytes Few; Lymphocytes 2 % (20-55); Platelet Estimate Normal; Polychromasia Few; Segmented Neutrophils 97 % (50-85); Target Cells Few; Total Cells Counted 100
[2018-03-07 06:00] LABS: Albumin 2.3 G/DL (3.4-5.0); Bilirubin,Total 0.7 MG/DL (0.2-1.0); Calcium 8.3 MG/DL (8.5-10.1); Potassium 3.2 MMOL/L (3.5-5.1); Total Protein 6.5 G/DL (6.4-8.3)
[2018-03-07] MEDS ORDERED: DEXTROSE 50% 25 GM/50 ML SYRINGE IV ONE (08:15)
[2018-03-07] MEDS: INSULIN REGULAR 100 UNIT/ML SUBCUT SCH ×4 (09:45→21:29)
[2018-03-07] MEDS ORDERED: PIPERACILLIN/TAZOBACTAM 3,375 MG in SODIUM CHLORIDE 0.9% 100 ML IV SCH (10:00)
[2018-03-07 10:14] LABS: Lactic Acid 2.8 MMOL/L (0.4-2.0)
[2018-03-07] MEDS: DEXTROSE 5% 1,000 ML IV SCH (10:51)
[2018-03-07] MEDS: MEROPENEM 500 MG in SODIUM CHLORIDE 0.9% 100 ML IV SCH (10:53)
[2018-03-07] MEDS ORDERED: LORazepam 2 MG/1 ML VIAL IV PRN (11:10)
[2018-03-07] MEDS: MEROPENEM 1,000 MG in SODIUM CHLORIDE 0.9% 100 ML IV SCH ×2 (12:00→21:26)
[2018-03-07] MEDS: LIDOCAINE 5% PATCH TRANSDERM SCH (12:01)
[2018-03-07] MEDS: PANTOPRAZOLE 40 MG VIAL IV SCH (12:52)
[2018-03-07] MEDS: acetaZOLAMIDE 250 MG TABLET PO SCH (15:17)
[2018-03-07] MEDS: ASPIRIN EC 81 MG TABLET PO SCH (15:17)
[2018-03-07] MEDS: AMIODARONE 200 MG TABLET PO SCH (15:18)
[2018-03-07] MEDS: predniSONE 10 MG TABLET PO SCH (15:18)
[2018-03-07] MEDS: THEOPHYLLINE ER (24 HR) 400 MG CAPSULE PO SCH (15:18)
[2018-03-07] MEDS: MEMANTINE 5 MG TABLET PO SCH ×2 (15:18→21:25)
[2018-03-07] MEDS: CALCIUM (CARBONATE)/VITAMIN D 600 MG-400 UNIT TABLET PO SCH (15:18)
[2018-03-07] MEDS: APIXABAN 5 MG TABLET PO SCH ×2 (15:18→21:25)
[2018-03-07] MEDS: TERBINAFINE 250 MG TABLET PO SCH (15:18)
[2018-03-07] MEDS: ATORVASTATIN 40 MG TABLET PO SCH (15:18)
[2018-03-07] MEDS: SERTRALINE 50 MG TABLET PO SCH (15:18)
[2018-03-07] MEDS: POLYETHYLENE GLYCOL POWDER 17 GM PACK PO SCH (15:19)
[2018-03-07] MEDS: AMINO ACIDS/DEXT/LYTES 4.25-5% 2,000 ML IV SCH (18:41)
[2018-03-07] MEDS ORDERED: DEXTROSE 50% 25 GM/50 ML SYRINGE IV PRN (19:30)
[2018-03-07] MEDS: ARIPiprazole 5 MG TABLET PO SCH (21:25)
[2018-03-07] MEDS: INSULIN GLARGINE 100 UNIT/ML SUBCUT SCH (21:30)
[2018-03-08] MEDS: LACTULOSE 20 GM/30 ML UDCUP PO SCH ×6 (02:46→21:00)
[2018-03-08] MEDS: DEXTROSE 5% 1,000 ML IV SCH ×3 (02:48→19:00)
[2018-03-08] MEDS: ALBUTEROL/IPRATROPIUM 3 ML NEB RESP TX SCH ×5 (03:10→19:59)
[2018-03-08 04:35] LABS: Basophils % 0.1 % (0.0-0.8); Eosinophils # 0.1 10*3/uL (0.0-0.87); Eosinophils % 0.7 % (0.00-10.9); Hematocrit 25.6 VOL% (35.7-47.0); Hemoglobin 7.5 GM/DL (12.0-16.0); Immature Granulocytes % 1.7 %; Immature Granulocytes Absolute 0.24 #; Lymphocytes # 1.4 10*3/uL (1.4-4.0); Lymphocytes % 9.9 % (21.3-54.2); Mean Corpuscular HGB Conc 29.3 GM/DL (32-36); Mean Corpuscular Hemoglobin 23 PG (27-34); Mean Corpuscular Volume 79.8 FL (87-102); Mean Platelet Volume 12.7 FL (9.6-12.0); Monocytes # 0.6 10*3/uL (0.11-0.8); Monocytes % 4.3 % (1.7-12.7); NRBC # 0.06 10*3/uL; Neutrophils # 11.5 10*3/uL (1.4-7.4); Neutrophils % 83.3 % (38.7-73.9); Platelet Count 392 T/CUMM (130-400); Red Blood Count 3.21 MC/CUMM (3.8-5.5); Red Cell Distribution Width 23.9 % (9.3-17.3); White Blood Count 13.8 T/CUMM (4-12)
[2018-03-08 05:05] LABS: Albumin 1.9 G/DL (3.4-5.0); Bilirubin,Total 1.3 MG/DL (0.2-1.0); Calcium 7.7 MG/DL (8.5-10.1); Osmolality,Calculated 285.1 MOS/KG (273-304); Potassium 3.4 MMOL/L (3.5-5.1); Total Protein 5.2 G/DL (6.4-8.3)
[2018-03-08] MEDS: POTASSIUM CHLORIDE RIDER 10 MEQ in PREMIX 1 EACH IV PRN (05:28)
[2018-03-08] MEDS: POTASSIUM CHLORIDE RIDER 20 MEQ in PREMIX 1 EACH IV PRN (06:08)
[2018-03-08 07:21] LABS: Hematocrit 26.6 VOL% (35.7-47.0)
[2018-03-08] MEDS: INSULIN REGULAR 100 UNIT/ML SUBCUT SCH ×4 (08:53→20:59)
[2018-03-08] MEDS: MEROPENEM 1,000 MG in SODIUM CHLORIDE 0.9% 100 ML IV SCH ×2 (11:10→20:59)
[2018-03-08] MEDS: LIDOCAINE 5% PATCH TRANSDERM SCH (11:11)
[2018-03-08] MEDS: POLYETHYLENE GLYCOL POWDER 17 GM PACK PO SCH (11:12)
[2018-03-08] MEDS: PANTOPRAZOLE 40 MG VIAL IV SCH (11:12)
[2018-03-08] MEDS: CALCIUM (CARBONATE)/VITAMIN D 600 MG-400 UNIT TABLET PO SCH (11:13)
[2018-03-08] MEDS: acetaZOLAMIDE 250 MG TABLET PO SCH (11:13)
[2018-03-08] MEDS: SERTRALINE 50 MG TABLET PO SCH (11:13)
[2018-03-08] MEDS: ATORVASTATIN 40 MG TABLET PO SCH (11:13)
[2018-03-08] MEDS: THEOPHYLLINE ER (24 HR) 400 MG CAPSULE PO SCH (11:13)
[2018-03-08] MEDS: predniSONE 10 MG TABLET PO SCH (11:13)
[2018-03-08] MEDS: AMIODARONE 200 MG TABLET PO SCH (11:13)
[2018-03-08] MEDS: ASPIRIN EC 81 MG TABLET PO SCH (11:13)
[2018-03-08] MEDS: APIXABAN 5 MG TABLET PO SCH ×2 (11:13→21:00)
[2018-03-08] MEDS: MEMANTINE 5 MG TABLET PO SCH ×2 (11:13→21:00)
[2018-03-08] MEDS: TERBINAFINE 250 MG TABLET PO SCH (11:18)
[2018-03-08] MEDS: VANCOMYCIN INJ 1,000 MG in SODIUM CHLORIDE 0.9% 250 ML IV SCH (12:19)
[2018-03-08] MEDS: AMINO ACIDS/DEXT/LYTES 4.25-5% 2,000 ML IV SCH (17:01)
[2018-03-08] MEDS: INSULIN GLARGINE 100 UNIT/ML SUBCUT SCH (20:59)
[2018-03-08] MEDS: ARIPiprazole 5 MG TABLET PO SCH (21:00)
[2018-03-09] MEDS: ALBUTEROL/IPRATROPIUM 3 ML NEB RESP TX SCH ×7 (00:34→23:06)
[2018-03-09] MEDS: POTASSIUM CHLORIDE RIDER 10 MEQ in PREMIX 1 EACH IV PRN (01:00)
[2018-03-09] MEDS: LACTULOSE 20 GM/30 ML UDCUP PO SCH ×4 (02:14→15:06)
[2018-03-09 04:59] LABS: Bilirubin,Total 0.4 MG/DL (0.2-1.0); Calcium 8.1 MG/DL (8.5-10.1); Osmolality,Calculated 279.7 MOS/KG (273-304); Potassium 3.7 MMOL/L (3.5-5.1); Total Protein 5.7 G/DL (6.4-8.3)
[2018-03-09 05:13] LABS: Basophils % 0.1 % (0.0-0.8); Eosinophils # 0.2 10*3/uL (0.0-0.87); Eosinophils % 1.7 % (0.00-10.9); Hematocrit 28.1 VOL% (35.7-47.0); Hemoglobin 8.3 GM/DL (12.0-16.0); Immature Granulocytes % 1.9 %; Lymphocytes # 1.2 10*3/uL (1.4-4.0); Lymphocytes % 11.6 % (21.3-54.2); Mean Corpuscular HGB Conc 29.5 GM/DL (32-36); Mean Corpuscular Hemoglobin 24 PG (27-34); Mean Corpuscular Volume 79.6 FL (87-102); Mean Platelet Volume 12.6 FL (9.6-12.0); Monocytes # 0.4 10*3/uL (0.11-0.8); Monocytes % 3.7 % (1.7-12.7); NRBC # 0.08 10*3/uL; Neutrophils # 8.7 10*3/uL (1.4-7.4); Platelet Count 429 T/CUMM (130-400); Red Blood Count 3.53 MC/CUMM (3.8-5.5); Red Cell Distribution Width 23.5 % (9.3-17.3); White Blood Count 10.7 T/CUMM (4-12)
[2018-03-09] MEDS: POTASSIUM CHLORIDE RIDER 20 MEQ in PREMIX 1 EACH IV PRN ×2 (05:40)
[2018-03-09] MEDS: DEXTROSE 5% 1,000 ML IV SCH ×3 (09:21→21:50)
[2018-03-09] MEDS: MEROPENEM 1,000 MG in SODIUM CHLORIDE 0.9% 100 ML IV SCH ×2 (10:17→21:12)
[2018-03-09] MEDS: AMIODARONE 200 MG TABLET PO SCH (10:18)
[2018-03-09] MEDS: TERBINAFINE 250 MG TABLET PO SCH (10:18)
[2018-03-09] MEDS: ASPIRIN CHEW 81 MG TABLET PO SCH (10:18)
[2018-03-09] MEDS: THEOPHYLLINE ER (24 HR) 400 MG CAPSULE PO SCH (10:18)
[2018-03-09] MEDS: CALCIUM (CARBONATE)/VITAMIN D 600 MG-400 UNIT TABLET PO SCH (10:18)
[2018-03-09] MEDS: PANTOPRAZOLE 40 MG VIAL IV SCH (10:18)
[2018-03-09] MEDS: MEMANTINE 5 MG TABLET PO SCH ×2 (10:19→21:12)
[2018-03-09] MEDS: predniSONE 10 MG TABLET PO SCH (10:19)
[2018-03-09] MEDS: SERTRALINE 50 MG TABLET PO SCH (10:19)
[2018-03-09] MEDS: LIDOCAINE 5% PATCH TRANSDERM SCH (10:19)
[2018-03-09] MEDS: acetaZOLAMIDE 250 MG TABLET PO SCH (10:19)
[2018-03-09] MEDS: ATORVASTATIN 40 MG TABLET PO SCH (10:19)
[2018-03-09] MEDS: APIXABAN 5 MG TABLET PO SCH ×2 (10:19→21:12)
[2018-03-09] MEDS: POLYETHYLENE GLYCOL POWDER 17 GM PACK PO SCH (10:19)
[2018-03-09] MEDS ORDERED: METOPROLOL TARTRATE 25 MG TABLET PO SCH (10:30)
[2018-03-09] MEDS: INSULIN REGULAR 100 UNIT/ML SUBCUT SCH ×4 (10:33→21:11)
[2018-03-09] MEDS: MICAFUNGIN 100 MG in SODIUM CHLORIDE 0.9% 100 ML IV SCH (10:54)
[2018-03-09] MEDS ORDERED: METOPROLOL TARTRATE 5 MG/5 ML VIAL IV SCH (11:30)
[2018-03-09] MEDS: VANCOMYCIN INJ 1,000 MG in SODIUM CHLORIDE 0.9% 250 ML IV SCH (11:51)
[2018-03-09] MEDS: ASPIRIN EC 81 MG TABLET PO SCH (12:29)
[2018-03-09] MEDS: ASCORBIC ACID 500 MG TABLET PO SCH ×2 (15:13→21:11)
[2018-03-09] MEDS: AMINO ACIDS/DEXT/LYTES 4.25-5% 2,000 ML IV SCH (16:46)
[2018-03-09] MEDS: METOPROLOL TARTRATE 25 MG TABLET PO SCH (21:12)
[2018-03-09] MEDS: ARIPiprazole 5 MG TABLET PO SCH (21:12)
[2018-03-09] MEDS: INSULIN GLARGINE 100 UNIT/ML SUBCUT SCH (22:14)
[2018-03-09] MEDS: ACETAMINOPHEN 325 MG TABLET PO PRN (23:56)
[2018-03-10] MEDS: ALBUTEROL/IPRATROPIUM 3 ML NEB RESP TX SCH ×6 (03:20→22:54)
[2018-03-10 04:13] LABS: Basophils % 0.1 % (0.0-0.8); Eosinophils # 0.1 10*3/uL (0.0-0.87); Eosinophils % 1.3 % (0.00-10.9); Hematocrit 27.5 VOL% (35.7-47.0); Hemoglobin 8.1 GM/DL (12.0-16.0); Immature Granulocytes % 2.6 %; Immature Granulocytes Absolute 0.23 #; Lymphocytes # 1.6 10*3/uL (1.4-4.0); Lymphocytes % 18.3 % (21.3-54.2); Mean Corpuscular HGB Conc 29.5 GM/DL (32-36); Mean Corpuscular Hemoglobin 24 PG (27-34); Mean Corpuscular Volume 79.7 FL (87-102); Mean Platelet Volume 12.5 FL (9.6-12.0); Monocytes # 0.5 10*3/uL (0.11-0.8); Monocytes % 5.3 % (1.7-12.7); NRBC # 0.04 10*3/uL; Neutrophils # 6.5 10*3/uL (1.4-7.4); Neutrophils % 72.4 % (38.7-73.9); Platelet Count 415 T/CUMM (130-400); Red Blood Count 3.45 MC/CUMM (3.8-5.5); Red Cell Distribution Width 23.4 % (9.3-17.3); White Blood Count 8.9 T/CUMM (4-12)
[2018-03-10 04:40] LABS: Albumin 1.9 G/DL (3.4-5.0); Bilirubin,Total 1.2 MG/DL (0.2-1.0); Calcium 7.9 MG/DL (8.5-10.1); Osmolality,Calculated 281.3 MOS/KG (273-304); Total Protein 5.2 G/DL (6.4-8.3)
[2018-03-10 05:01] LABS: Platelet Estimate Normal; Polychromasia Few; Target Cells Few
[2018-03-10] MEDS: POTASSIUM CHLORIDE RIDER 20 MEQ in PREMIX 1 EACH IV PRN ×2 (05:20→06:13)
[2018-03-10] MEDS: POTASSIUM CHLORIDE RIDER 10 MEQ in PREMIX 1 EACH IV PRN (07:25)
[2018-03-10] MEDS: INSULIN REGULAR 100 UNIT/ML SUBCUT SCH ×4 (08:46→21:46)
[2018-03-10] MEDS: POLYETHYLENE GLYCOL POWDER 17 GM PACK PO SCH (08:56)
[2018-03-10] MEDS: ATORVASTATIN 40 MG TABLET PO SCH (08:57)
[2018-03-10] MEDS: THEOPHYLLINE ER (24 HR) 400 MG CAPSULE PO SCH (08:58)
[2018-03-10] MEDS: ASCORBIC ACID 500 MG TABLET PO SCH ×2 (08:58→21:46)
[2018-03-10] MEDS: CALCIUM (CARBONATE)/VITAMIN D 600 MG-400 UNIT TABLET PO SCH (08:59)
[2018-03-10] MEDS: AMIODARONE 200 MG TABLET PO SCH (08:59)
[2018-03-10] MEDS: APIXABAN 5 MG TABLET PO SCH ×2 (08:59→21:46)
[2018-03-10] MEDS: acetaZOLAMIDE 250 MG TABLET PO SCH (08:59)
[2018-03-10] MEDS: MEMANTINE 5 MG TABLET PO SCH ×2 (09:00→21:46)
[2018-03-10] MEDS: predniSONE 10 MG TABLET PO SCH (09:00)
[2018-03-10] MEDS: SERTRALINE 50 MG TABLET PO SCH (09:00)
[2018-03-10] MEDS: PANTOPRAZOLE 40 MG TABLET PO SCH (09:00)
[2018-03-10] MEDS: ASPIRIN CHEW 81 MG TABLET PO SCH (09:01)
[2018-03-10] MEDS: METOPROLOL TARTRATE 25 MG TABLET PO SCH ×3 (09:01→21:46)
[2018-03-10] MEDS: TERBINAFINE 250 MG TABLET PO SCH (09:03)
[2018-03-10] MEDS: MEROPENEM 1,000 MG in SODIUM CHLORIDE 0.9% 100 ML IV SCH ×2 (09:06→21:46)
[2018-03-10] MEDS: LIDOCAINE 5% PATCH TRANSDERM SCH (09:10)
[2018-03-10] MEDS: MICAFUNGIN 100 MG in SODIUM CHLORIDE 0.9% 100 ML IV SCH (11:03)
[2018-03-10] MEDS: DEXTROSE 5% 1,000 ML IV SCH (11:20)
[2018-03-10] MEDS: VANCOMYCIN INJ 1,000 MG in SODIUM CHLORIDE 0.9% 250 ML IV SCH (12:17)
[2018-03-10] MEDS: AMINO ACIDS/DEXT/LYTES 4.25-5% 2,000 ML IV SCH (18:32)
[2018-03-10] MEDS: INSULIN GLARGINE 100 UNIT/ML SUBCUT SCH (21:45)
[2018-03-10] MEDS: ARIPiprazole 5 MG TABLET PO SCH (21:46)
[2018-03-10] MEDS: ACETAMINOPHEN 325 MG TABLET PO PRN (23:05)
[2018-03-11] MEDS: ALBUTEROL/IPRATROPIUM 3 ML NEB RESP TX SCH ×7 (02:48→23:31)
[2018-03-11 05:24] LABS: Basophils % 0.1 % (0.0-0.8); Eosinophils # 0.2 10*3/uL (0.0-0.87); Hemoglobin 8.2 GM/DL (12.0-16.0); Immature Granulocytes % 4.4 %; Immature Granulocytes Absolute 0.35 #; Lymphocytes # 1.5 10*3/uL (1.4-4.0); Lymphocytes % 19.2 % (21.3-54.2); Mean Corpuscular HGB Conc 29.3 GM/DL (32-36); Mean Corpuscular Hemoglobin 23 PG (27-34); Mean Corpuscular Volume 78.7 FL (87-102); Mean Platelet Volume 12.6 FL (9.6-12.0); Monocytes # 0.5 10*3/uL (0.11-0.8); Monocytes % 5.7 % (1.7-12.7); NRBC # 0.03 10*3/uL; Neutrophils # 5.5 10*3/uL (1.4-7.4); Neutrophils % 68.6 % (38.7-73.9); Platelet Count 394 T/CUMM (130-400); Red Blood Count 3.56 MC/CUMM (3.8-5.5); Red Cell Distribution Width 23.7 % (9.3-17.3)
[2018-03-11 05:45] LABS: Albumin 1.9 G/DL (3.4-5.0); Bilirubin,Total 0.6 MG/DL (0.2-1.0); Calcium 7.8 MG/DL (8.5-10.1); Osmolality,Calculated 277.7 MOS/KG (273-304); Potassium 3.5 MMOL/L (3.5-5.1); Total Protein 5.2 G/DL (6.4-8.3)
[2018-03-11 05:50] LABS: Platelet Estimate Normal; Polychromasia Few
[2018-03-11 05:51] LABS: Hypochromasia Slight
[2018-03-11] MEDS: INSULIN REGULAR 100 UNIT/ML SUBCUT SCH ×4 (07:47→21:30)
[2018-03-11] MEDS: ASCORBIC ACID 500 MG TABLET PO SCH ×2 (09:51→21:03)
[2018-03-11] MEDS: CALCIUM (CARBONATE)/VITAMIN D 600 MG-400 UNIT TABLET PO SCH (09:51)
[2018-03-11] MEDS: acetaZOLAMIDE 250 MG TABLET PO SCH (09:51)
[2018-03-11] MEDS: ASPIRIN CHEW 81 MG TABLET PO SCH (09:52)
[2018-03-11] MEDS: PANTOPRAZOLE 40 MG TABLET PO SCH (09:52)
[2018-03-11] MEDS: APIXABAN 5 MG TABLET PO SCH ×2 (09:52→21:03)
[2018-03-11] MEDS: MEMANTINE 5 MG TABLET PO SCH ×2 (09:52→21:04)
[2018-03-11] MEDS: predniSONE 10 MG TABLET PO SCH (09:52)
[2018-03-11] MEDS: SERTRALINE 50 MG TABLET PO SCH (09:52)
[2018-03-11] MEDS: AMIODARONE 200 MG TABLET PO SCH (09:53)
[2018-03-11] MEDS: THEOPHYLLINE ER (24 HR) 400 MG CAPSULE PO SCH (09:53)
[2018-03-11] MEDS: ATORVASTATIN 40 MG TABLET PO SCH (09:53)
[2018-03-11] MEDS: METOPROLOL TARTRATE 25 MG TABLET PO SCH ×3 (09:54→21:04)
[2018-03-11] MEDS: MEROPENEM 1,000 MG in SODIUM CHLORIDE 0.9% 100 ML IV SCH ×2 (10:08→21:12)
[2018-03-11] MEDS: LIDOCAINE 5% PATCH TRANSDERM SCH (10:09)
[2018-03-11] MEDS: TERBINAFINE 250 MG TABLET PO SCH (10:32)
[2018-03-11] MEDS: MICAFUNGIN 100 MG in SODIUM CHLORIDE 0.9% 100 ML IV SCH (12:55)
[2018-03-11] MEDS: ACETAMINOPHEN 325 MG TABLET PO PRN (13:16)
[2018-03-11] MEDS: POLYETHYLENE GLYCOL POWDER 17 GM PACK PO SCH (13:20)
[2018-03-11 13:27] LABS: Apearance,Urine CLOUDY (Clear); Bacteria,Urine Occasional /HPF (Few); Bilirubin,Urine Negative (Negative); Blood, Urine Negative (Negative); Glucose,Urine (UA) 50 mg/dL (Negative); Ketones,Urine Negative (Negative); Mucus,Urine Occasional /LPF (Occasional); Nitrite,Urine Negative (Negative); Protein,Urine Negative; RBC,Urine 3 /HPF (0-4); Squamous Epithelial Cell,Urine Occasional /HPF (0-10); Urine Color Yellow (Yellow); Urine Urobilinogen < 2.0 EU/DL (0.2-1.0); WBC,Urine 2 /HPF (0-6)
[2018-03-11] MEDS: VANCOMYCIN INJ 1,000 MG in SODIUM CHLORIDE 0.9% 250 ML IV SCH (13:59)
[2018-03-11] MEDS: AMINO ACIDS/DEXT/LYTES 4.25-5% 2,000 ML IV SCH (18:47)
[2018-03-11] MEDS: ARIPiprazole 5 MG TABLET PO SCH (21:03)
[2018-03-11] MEDS: INSULIN GLARGINE 100 UNIT/ML SUBCUT SCH (21:04)
[2018-03-12] MEDS: ALBUTEROL/IPRATROPIUM 3 ML NEB RESP TX SCH ×6 (03:32→23:43)
[2018-03-12 07:03] LABS: Basophils % 0.2 % (0.0-0.8); Eosinophils # 0.1 10*3/uL (0.0-0.87); Eosinophils % 1.6 % (0.00-10.9); Hematocrit 31.3 VOL% (35.7-47.0); Hemoglobin 9.3 GM/DL (12.0-16.0); Immature Granulocytes % 3.5 %; Lymphocytes # 1.9 10*3/uL (1.4-4.0); Mean Corpuscular HGB Conc 29.7 GM/DL (32-36); Mean Corpuscular Hemoglobin 23 PG (27-34); Mean Corpuscular Volume 78.6 FL (87-102); Mean Platelet Volume 12.6 FL (9.6-12.0); Monocytes # 0.5 10*3/uL (0.11-0.8); Monocytes % 5.3 % (1.7-12.7); NRBC # 0.03 10*3/uL; Neutrophils # 5.9 10*3/uL (1.4-7.4); Neutrophils % 67.4 % (38.7-73.9); Platelet Count 416 T/CUMM (130-400); Red Blood Count 3.98 MC/CUMM (3.8-5.5); Red Cell Distribution Width 24.3 % (9.3-17.3); White Blood Count 8.7 T/CUMM (4-12)
[2018-03-12 07:15] LABS: Alanine Aminotransferase 18 U/L (13-56); Albumin 2.1 G/DL (3.4-5.0); Alkaline Phosphatase 59 U/L (45-117); Aspartate Amino Transferase 24 U/L (0-37); Bilirubin,Total < 0.39 MG/DL (0.2-1.0); Blood Urea Nitrogen 16 MG/DL (7-18); Calcium 8.2 MG/DL (8.5-10.1); Glucose 108 MG/DL (74-106); Osmolality,Calculated 278.5 MOS/KG (273-304); Potassium 3.3 MMOL/L (3.5-5.1); Sodium 139 MMOL/L (136-145); Total Protein 5.8 G/DL (6.4-8.3)
[2018-03-12 07:18] LABS: Band Neutrophils 3 % (0-10); Lymphocytes 18 % (20-55); Metamyelocytes 1 %; Segmented Neutrophils 69 % (50-85); Total Cells Counted 100
[2018-03-12 07:19] LABS: Atypical Lymphocytes Few; Hypochromasia 1+; Microcytosis 1+
[2018-03-12 07:20] LABS: Acanthocytes Few; Polychromasia Slight
[2018-03-12] MEDS ORDERED: POTASSIUM PHOSPHATE 30 MMOL in SODIUM CHLORIDE 0.9% 250 ML IV ONE (08:00)
[2018-03-12] MEDS: AMIODARONE 200 MG TABLET PO SCH (09:30)
[2018-03-12] MEDS: THEOPHYLLINE ER (24 HR) 400 MG CAPSULE PO SCH (10:04)
[2018-03-12] MEDS: LACTOBACILLUS RHAMNOSUS GG CAPSULE PO SCH ×2 (10:05→20:42)
[2018-03-12] MEDS: PANTOPRAZOLE 40 MG TABLET PO SCH (10:05)
[2018-03-12] MEDS: CALCIUM (CARBONATE)/VITAMIN D 600 MG-400 UNIT TABLET PO SCH (10:05)
[2018-03-12] MEDS: TERBINAFINE 250 MG TABLET PO SCH (10:05)
[2018-03-12] MEDS: ASPIRIN CHEW 81 MG TABLET PO SCH (10:06)
[2018-03-12] MEDS: predniSONE 10 MG TABLET PO SCH (10:06)
[2018-03-12] MEDS: SERTRALINE 50 MG TABLET PO SCH (10:06)
[2018-03-12] MEDS: ASCORBIC ACID 500 MG TABLET PO SCH ×2 (10:06→20:42)
[2018-03-12] MEDS: ATORVASTATIN 40 MG TABLET PO SCH (10:07)
[2018-03-12] MEDS: APIXABAN 5 MG TABLET PO SCH ×2 (10:07→20:42)
[2018-03-12] MEDS: MEMANTINE 5 MG TABLET PO SCH ×2 (10:07→20:42)
[2018-03-12] MEDS: METOPROLOL TARTRATE 25 MG TABLET PO SCH ×3 (10:07→20:42)
[2018-03-12] MEDS: LIDOCAINE 5% PATCH TRANSDERM SCH (10:08)
[2018-03-12] MEDS: acetaZOLAMIDE 250 MG TABLET PO SCH (10:32)
[2018-03-12] MEDS: POLYETHYLENE GLYCOL POWDER 17 GM PACK PO SCH (10:34)
[2018-03-12] MEDS: INSULIN REGULAR 100 UNIT/ML SUBCUT SCH ×4 (11:05→20:43)
[2018-03-12] MEDS ORDERED: POTASSIUM PHOSPHATE 15 MMOL in SODIUM CHLORIDE 0.9% 100 ML IV ONE (13:54)
[2018-03-12] MEDS: ARIPiprazole 5 MG TABLET PO SCH (20:42)
[2018-03-12] MEDS: INSULIN GLARGINE 100 UNIT/ML SUBCUT SCH (20:43)
[2018-03-13] MEDS: ALBUTEROL/IPRATROPIUM 3 ML NEB RESP TX SCH ×6 (03:35→23:57)
[2018-03-13 05:33] LABS: Basophils % 0.3 % (0.0-0.8); Eosinophils # 0.1 10*3/uL (0.0-0.87); Hemoglobin 9.3 GM/DL (12.0-16.0); Immature Granulocytes % 1.7 %; Immature Granulocytes Absolute 0.13 #; Lymphocytes # 2.4 10*3/uL (1.4-4.0); Lymphocytes % 30.8 % (21.3-54.2); Mean Corpuscular HGB Conc 29.1 GM/DL (32-36); Mean Corpuscular Hemoglobin 23 PG (27-34); Mean Corpuscular Volume 79.2 FL (87-102); Mean Platelet Volume 12.6 FL (9.6-12.0); Monocytes # 0.6 10*3/uL (0.11-0.8); Monocytes % 7.1 % (1.7-12.7); NRBC # 0.02 10*3/uL; Neutrophils # 4.6 10*3/uL (1.4-7.4); Neutrophils % 59.1 % (38.7-73.9); Platelet Count 403 T/CUMM (130-400); Red Blood Count 4.04 MC/CUMM (3.8-5.5); Red Cell Distribution Width 24.4 % (9.3-17.3); White Blood Count 7.8 T/CUMM (4-12)
[2018-03-13 05:47] LABS: Albumin 2.1 G/DL (3.4-5.0); Bilirubin,Total 0.5 MG/DL (0.2-1.0); Calcium 8.3 MG/DL (8.5-10.1); Osmolality,Calculated 278.5 MOS/KG (273-304); Potassium 3.4 MMOL/L (3.5-5.1)
[2018-03-13 06:16] LABS: Platelet Estimate Normal; Polychromasia Slight
[2018-03-13] MEDS: predniSONE 10 MG TABLET PO SCH (09:37)
[2018-03-13] MEDS: CALCIUM (CARBONATE)/VITAMIN D 600 MG-400 UNIT TABLET PO SCH (09:37)
[2018-03-13] MEDS: LIDOCAINE 5% PATCH TRANSDERM SCH (09:37)
[2018-03-13] MEDS: acetaZOLAMIDE 250 MG TABLET PO SCH (09:37)
[2018-03-13] MEDS: AMIODARONE 200 MG TABLET PO SCH (09:37)
[2018-03-13] MEDS: SERTRALINE 50 MG TABLET PO SCH (09:37)
[2018-03-13] MEDS: ASCORBIC ACID 500 MG TABLET PO SCH ×2 (09:37→20:47)
[2018-03-13] MEDS: PANTOPRAZOLE 40 MG TABLET PO SCH (09:38)
[2018-03-13] MEDS: METOPROLOL TARTRATE 25 MG TABLET PO SCH ×3 (09:38→20:47)
[2018-03-13] MEDS: LACTOBACILLUS RHAMNOSUS GG CAPSULE PO SCH ×2 (09:38→20:47)
[2018-03-13] MEDS: ATORVASTATIN 40 MG TABLET PO SCH (09:38)
[2018-03-13] MEDS: APIXABAN 5 MG TABLET PO SCH ×2 (09:38→20:47)
[2018-03-13] MEDS: MEMANTINE 5 MG TABLET PO SCH ×2 (09:38→20:47)
[2018-03-13] MEDS: THEOPHYLLINE ER (24 HR) 400 MG CAPSULE PO SCH (09:38)
[2018-03-13] MEDS: ASPIRIN CHEW 81 MG TABLET PO SCH (09:38)
[2018-03-13] MEDS: POLYETHYLENE GLYCOL POWDER 17 GM PACK PO SCH (10:32)
[2018-03-13] MEDS: INSULIN REGULAR 100 UNIT/ML SUBCUT SCH ×4 (10:32→21:53)
[2018-03-13] MEDS: TERBINAFINE 250 MG TABLET PO SCH (10:45)
[2018-03-13] MEDS: ACETAMINOPHEN 325 MG TABLET PO PRN (19:05)
[2018-03-13] MEDS: ARIPiprazole 5 MG TABLET PO SCH (20:47)
[2018-03-13] MEDS: INSULIN GLARGINE 100 UNIT/ML SUBCUT SCH (21:53)
[2018-03-14 03:02] LABS: Basophils % 0.2 % (0.0-0.8); Eosinophils # 0.1 10*3/uL (0.0-0.87); Hematocrit 31.3 VOL% (35.7-47.0); Hemoglobin 9.2 GM/DL (12.0-16.0); Immature Granulocytes % 1.1 %; Lymphocytes # 2.4 10*3/uL (1.4-4.0); Lymphocytes % 27.7 % (21.3-54.2); Mean Corpuscular HGB Conc 29.4 GM/DL (32-36); Mean Corpuscular Hemoglobin 23 PG (27-34); Mean Corpuscular Volume 79.4 FL (87-102); Mean Platelet Volume 12.7 FL (9.6-12.0); Monocytes # 0.5 10*3/uL (0.11-0.8); Monocytes % 5.4 % (1.7-12.7); NRBC # 0.02 10*3/uL; Neutrophils # 5.6 10*3/uL (1.4-7.4); Neutrophils % 64.6 % (38.7-73.9); Platelet Count 358 T/CUMM (130-400); Red Blood Count 3.94 MC/CUMM (3.8-5.5); Red Cell Distribution Width 24.5 % (9.3-17.3); White Blood Count 8.7 T/CUMM (4-12)
[2018-03-14 03:27] LABS: Calcium 8.2 MG/DL (8.5-10.1); Osmolality,Calculated 278.4 MOS/KG (273-304); Potassium 3.3 MMOL/L (3.5-5.1)
[2018-03-14] MEDS: ALBUTEROL/IPRATROPIUM 3 ML NEB RESP TX SCH ×5 (03:33→19:41)
[2018-03-14 07:08] LABS: Anisocytosis 2+; Platelet Estimate Normal
[2018-03-14 07:09] LABS: Poikilocytosis 1+; Polychromasia 1+
[2018-03-14] MEDS: INSULIN REGULAR 100 UNIT/ML SUBCUT SCH ×4 (09:11→22:09)
[2018-03-14] MEDS: ATORVASTATIN 40 MG TABLET PO SCH (09:12)
[2018-03-14] MEDS: THEOPHYLLINE ER (24 HR) 400 MG CAPSULE PO SCH (09:13)
[2018-03-14] MEDS: ASPIRIN CHEW 81 MG TABLET PO SCH (09:13)
[2018-03-14] MEDS: AMIODARONE 200 MG TABLET PO SCH (09:13)
[2018-03-14] MEDS: acetaZOLAMIDE 250 MG TABLET PO SCH (09:13)
[2018-03-14] MEDS: LACTOBACILLUS RHAMNOSUS GG CAPSULE PO SCH ×2 (09:13→22:04)
[2018-03-14] MEDS: SERTRALINE 50 MG TABLET PO SCH (09:13)
[2018-03-14] MEDS: ASCORBIC ACID 500 MG TABLET PO SCH ×2 (09:13→22:07)
[2018-03-14] MEDS: MEMANTINE 5 MG TABLET PO SCH ×2 (09:13→22:05)
[2018-03-14] MEDS: PANTOPRAZOLE 40 MG TABLET PO SCH (09:14)
[2018-03-14] MEDS: predniSONE 10 MG TABLET PO SCH (09:14)
[2018-03-14] MEDS: POLYETHYLENE GLYCOL POWDER 17 GM PACK PO SCH (09:14)
[2018-03-14] MEDS: LIDOCAINE 5% PATCH TRANSDERM SCH (09:14)
[2018-03-14] MEDS: APIXABAN 5 MG TABLET PO SCH ×2 (09:14→22:09)
[2018-03-14] MEDS: METOPROLOL TARTRATE 25 MG TABLET PO SCH ×3 (09:14→22:06)
[2018-03-14] MEDS: CALCIUM (CARBONATE)/VITAMIN D 600 MG-400 UNIT TABLET PO SCH (09:15)
[2018-03-14] MEDS: TERBINAFINE 250 MG TABLET PO SCH (09:15)
[2018-03-14] MEDS: MAGNESIUM CHLORIDE 64 MG TABLET PO SCH (13:42)
[2018-03-14] MEDS: POTASSIUM CHLORIDE 20 MEQ TABLET PO SCH ×2 (13:42→22:11)
[2018-03-14] MEDS: ARIPiprazole 5 MG TABLET PO SCH (22:09)
[2018-03-14] MEDS: INSULIN GLARGINE 100 UNIT/ML SUBCUT SCH (22:11)
[2018-03-15] MEDS: ALBUTEROL/IPRATROPIUM 3 ML NEB RESP TX SCH ×7 (01:02→23:57)
[2018-03-15 05:37] LABS: Basophils % 0.3 % (0.0-0.8); Eosinophils # 0.1 10*3/uL (0.0-0.87); Eosinophils % 0.4 % (0.00-10.9); Hematocrit 32.1 VOL% (35.7-47.0); Hemoglobin 9.5 GM/DL (12.0-16.0); Immature Granulocytes Absolute 0.13 #; Lymphocytes # 2.4 10*3/uL (1.4-4.0); Lymphocytes % 17.9 % (21.3-54.2); Mean Corpuscular HGB Conc 29.6 GM/DL (32-36); Mean Corpuscular Hemoglobin 24 PG (27-34); Mean Corpuscular Volume 79.3 FL (87-102); Monocytes # 0.6 10*3/uL (0.11-0.8); Monocytes % 4.1 % (1.7-12.7); NRBC # 0.03 10*3/uL; Neutrophils # 10.3 10*3/uL (1.4-7.4); Neutrophils % 76.3 % (38.7-73.9); Platelet Count 339 T/CUMM (130-400); Red Blood Count 4.05 MC/CUMM (3.8-5.5); Red Cell Distribution Width 24.6 % (9.3-17.3); White Blood Count 13.5 T/CUMM (4-12)
[2018-03-15 05:40] LABS: Calcium 8.3 MG/DL (8.5-10.1); Osmolality,Calculated 276.5 MOS/KG (273-304); Potassium 3.1 MMOL/L (3.5-5.1)
[2018-03-15 06:06] LABS: Platelet Estimate Normal
[2018-03-15 06:07] LABS: Anisocytosis 2+; Poikilocytosis 2+; Target Cells Few
[2018-03-15 06:08] LABS: Ovalocytes Few
[2018-03-15] MEDS: INSULIN REGULAR 100 UNIT/ML SUBCUT SCH ×4 (08:42→22:17)
[2018-03-15] MEDS: POLYETHYLENE GLYCOL POWDER 17 GM PACK PO SCH (09:14)
[2018-03-15] MEDS: LIDOCAINE 5% PATCH TRANSDERM SCH (09:14)
[2018-03-15] MEDS: ASPIRIN CHEW 81 MG TABLET PO SCH (09:14)
[2018-03-15] MEDS: POTASSIUM CHLORIDE 20 MEQ TABLET PO SCH ×2 (09:15→22:19)
[2018-03-15] MEDS: LACTOBACILLUS RHAMNOSUS GG CAPSULE PO SCH ×2 (09:15→22:19)
[2018-03-15] MEDS: ASCORBIC ACID 500 MG TABLET PO SCH ×2 (09:15→22:19)
[2018-03-15] MEDS: MEMANTINE 5 MG TABLET PO SCH ×2 (09:15→22:19)
[2018-03-15] MEDS: SERTRALINE 50 MG TABLET PO SCH (09:15)
[2018-03-15] MEDS: predniSONE 10 MG TABLET PO SCH (09:15)
[2018-03-15] MEDS: METOPROLOL TARTRATE 25 MG TABLET PO SCH ×3 (09:15→22:20)
[2018-03-15] MEDS: APIXABAN 5 MG TABLET PO SCH ×2 (09:15→22:19)
[2018-03-15] MEDS: MAGNESIUM CHLORIDE 64 MG TABLET PO SCH (09:16)
[2018-03-15] MEDS: THEOPHYLLINE ER (24 HR) 400 MG CAPSULE PO SCH (09:16)
[2018-03-15] MEDS: CALCIUM (CARBONATE)/VITAMIN D 600 MG-400 UNIT TABLET PO SCH (09:16)
[2018-03-15] MEDS: TERBINAFINE 250 MG TABLET PO SCH (09:16)
[2018-03-15] MEDS: ATORVASTATIN 40 MG TABLET PO SCH (09:16)
[2018-03-15] MEDS: PANTOPRAZOLE 40 MG TABLET PO SCH (09:16)
[2018-03-15] MEDS: acetaZOLAMIDE 250 MG TABLET PO SCH (09:16)
[2018-03-15] MEDS: AMIODARONE 200 MG TABLET PO SCH (09:16)
[2018-03-15] MEDS ORDERED: POTASSIUM CHLORIDE 10 MEQ TABLET PO ONE (13:59)
[2018-03-15] MEDS: ACETAMINOPHEN 325 MG TABLET PO PRN (14:35)
[2018-03-15] MEDS: INSULIN GLARGINE 100 UNIT/ML SUBCUT SCH (22:18)
[2018-03-15] MEDS: ARIPiprazole 5 MG TABLET PO SCH (22:19)
[2018-03-16] MEDS: ALBUTEROL/IPRATROPIUM 3 ML NEB RESP TX SCH ×4 (03:30→14:42)
[2018-03-16 05:46] LABS: Calcium 8.1 MG/DL (8.5-10.1); Potassium 3.1 MMOL/L (3.5-5.1)
[2018-03-16 05:52] LABS: Basophils % 0.3 % (0.0-0.8); Eosinophils # 0.1 10*3/uL (0.0-0.87); Eosinophils % 0.5 % (0.00-10.9); Hematocrit 29.8 VOL% (35.7-47.0); Immature Granulocytes % 0.9 %; Immature Granulocytes Absolute 0.11 #; Lymphocytes # 3.5 10*3/uL (1.4-4.0); Lymphocytes % 28.6 % (21.3-54.2); Mean Corpuscular HGB Conc 29.5 GM/DL (32-36); Mean Corpuscular Hemoglobin 23 PG (27-34); Mean Corpuscular Volume 79.3 FL (87-102); Mean Platelet Volume 12.7 FL (9.6-12.0); Monocytes # 0.6 10*3/uL (0.11-0.8); Monocytes % 4.9 % (1.7-12.7); NRBC # 0.02 10*3/uL; Neutrophils # 7.9 10*3/uL (1.4-7.4); Neutrophils % 64.8 % (38.7-73.9); Platelet Count 337 T/CUMM (130-400); Red Blood Count 3.76 MC/CUMM (3.8-5.5); Red Cell Distribution Width 24.7 % (9.3-17.3); White Blood Count 12.1 T/CUMM (4-12)
[2018-03-16 05:54] LABS: Hemoglobin 8.8 GM/DL (12.0-16.0)
[2018-03-16 05:55] LABS: Platelet Estimate Normal; Poikilocytosis 1+
[2018-03-16 05:56] LABS: Anisocytosis 2+; Hypochromasia Slight
[2018-03-16 05:57] LABS: Polychromasia 1+
[2018-03-16] MEDS: INSULIN REGULAR 100 UNIT/ML SUBCUT SCH ×2 (07:18→11:14)
[2018-03-16] MEDS: APIXABAN 5 MG TABLET PO SCH (08:35)
[2018-03-16] MEDS: acetaZOLAMIDE 250 MG TABLET PO SCH (08:35)
[2018-03-16] MEDS: POLYETHYLENE GLYCOL POWDER 17 GM PACK PO SCH (08:35)
[2018-03-16] MEDS: THEOPHYLLINE ER (24 HR) 400 MG CAPSULE PO SCH (08:35)
[2018-03-16] MEDS: predniSONE 10 MG TABLET PO SCH (08:36)
[2018-03-16] MEDS: BISACODYL 5 MG TABLET PO PRN (08:36)
[2018-03-16] MEDS: ASPIRIN CHEW 81 MG TABLET PO SCH (08:36)
[2018-03-16] MEDS: POTASSIUM CHLORIDE 20 MEQ TABLET PO SCH (08:37)
[2018-03-16] MEDS: LIDOCAINE 5% PATCH TRANSDERM SCH (08:45)
[2018-03-16] MEDS: CALCIUM (CARBONATE)/VITAMIN D 600 MG-400 UNIT TABLET PO SCH (10:35)
[2018-03-16] MEDS: MEMANTINE 5 MG TABLET PO SCH (10:36)
[2018-03-16] MEDS: ATORVASTATIN 40 MG TABLET PO SCH (10:36)
[2018-03-16] MEDS: TERBINAFINE 250 MG TABLET PO SCH (10:36)
[2018-03-16] MEDS: LACTOBACILLUS RHAMNOSUS GG CAPSULE PO SCH (10:36)
[2018-03-16] MEDS: PANTOPRAZOLE 40 MG TABLET PO SCH (10:36)
[2018-03-16] MEDS: ASCORBIC ACID 500 MG TABLET PO SCH (10:37)
[2018-03-16] MEDS: SERTRALINE 50 MG TABLET PO SCH (10:37)
[2018-03-16] MEDS: MAGNESIUM CHLORIDE 64 MG TABLET PO SCH (10:37)
[2018-03-16] MEDS: METOPROLOL TARTRATE 25 MG TABLET PO SCH ×2 (10:47→16:09)
[2018-03-16] MEDS: AMIODARONE 200 MG TABLET PO SCH (10:48)
[2018-03-16 11:12] VITALS: BP 107/68
[2018-03-16] MEDS ORDERED: POTASSIUM CHLORIDE 20 MEQ TABLET PO SCH (15:00)
== END 2018-03-16 16:10 | disposition home or self-care (01) | DRG 917 ==
LOC: EDBD → EDUNIT# → N.ED 21:00 → N.EDINP 21:00 → SUATTDRO 02-24 01:59 → N.5E 02-24 02:21 → SUATTDRO 02-24 09:34 → N.ICU 02-24 10:09 → N.5E 02-25 13:58 → N.ICU 03-05 17:06 → N.3E 03-10 13:33
PROVIDERS: ADMIT Internal Medicine; ATTEND Internal Medicine

== ENCOUNTER 2018-03-16 21:46 | Observation (INO) ==
[2018-03-17] MEDS ORDERED: GLUCAGON 1 MG VIAL IM PRN (00:22)
[2018-03-17] MEDS ORDERED: DEXTROSE 50% 25 GM/50 ML SYRINGE IV PRN (00:22)
[2018-03-17] MEDS ORDERED: ENOXAPARIN 40 MG/0.4 ML SYRINGE SUBCUT SCH (00:30)
[2018-03-17] MEDS ORDERED: ACETAMINOPHEN 325 MG TABLET PO PRN (02:30)
[2018-03-17] MEDS ORDERED: BISACODYL 5 MG TABLET PO PRN (02:30)
[2018-03-17] MEDS ORDERED: MAGNESIUM HYDROXIDE SUSP 30 ML UDCUP PO PRN (02:30)
[2018-03-17] MEDS: ALBUTEROL/IPRATROPIUM 3 ML NEB RESP TX SCH ×3 (03:35→12:46)
[2018-03-17 06:12] LABS: Basophils # 0.1 10*3/uL (0.0-0.2); Basophils % 0.6 % (0.0-0.8); Eosinophils % 0.2 % (0.00-10.9); Hematocrit 35.2 VOL% (35.7-47.0); Hemoglobin 10.5 GM/DL (12.0-16.0); Immature Granulocytes % 0.8 %; Lymphocytes # 3.9 10*3/uL (1.4-4.0); Mean Corpuscular HGB Conc 29.8 GM/DL (32-36); Mean Corpuscular Hemoglobin 24 PG (27-34); Mean Corpuscular Volume 78.7 FL (87-102); Mean Platelet Volume 13.1 FL (9.6-12.0); Monocytes # 0.7 10*3/uL (0.11-0.8); Monocytes % 5.5 % (1.7-12.7); NRBC # 0.04 10*3/uL; Neutrophils # 7.7 10*3/uL (1.4-7.4); Neutrophils % 61.9 % (38.7-73.9); Platelet Count 426 T/CUMM (130-400); Red Blood Count 4.47 MC/CUMM (3.8-5.5); Red Cell Distribution Width 24.9 % (9.3-17.3); White Blood Count 12.5 T/CUMM (4-12)
[2018-03-17 06:31] LABS: Anisocytosis 1+; Platelet Estimate Normal; Poikilocytosis 2+
[2018-03-17 06:32] LABS: Ovalocytes Few; Polychromasia Slight
[2018-03-17 06:40] LABS: Albumin 2.6 G/DL (3.4-5.0); Bilirubin,Total 0.6 MG/DL (0.2-1.0); Calcium 8.5 MG/DL (8.5-10.1); Osmolality,Calculated 279.4 MOS/KG (273-304); Potassium 3.7 MMOL/L (3.5-5.1)
[2018-03-17] MEDS: INSULIN REGULAR 100 UNIT/ML SUBCUT SCH ×2 (08:15→12:39)
[2018-03-17] MEDS ORDERED: POLYETHYLENE GLYCOL POWDER 17 GM PACK PO SCH (09:00)
[2018-03-17] MEDS ORDERED: MAGNESIUM CHLORIDE 64 MG TABLET PO SCH (09:00)
[2018-03-17] MEDS ORDERED: APIXABAN 5 MG TABLET PO SCH (09:00)
[2018-03-17] MEDS ORDERED: acetaZOLAMIDE 250 MG TABLET PO SCH (09:00)
[2018-03-17] MEDS ORDERED: LIDOCAINE 5% PATCH TRANSDERM SCH (09:00)
[2018-03-17] MEDS ORDERED: AMIODARONE 200 MG TABLET PO SCH (09:00)
[2018-03-17] MEDS ORDERED: SERTRALINE 50 MG TABLET PO SCH (09:00)
[2018-03-17] MEDS ORDERED: POTASSIUM CHLORIDE 20 MEQ TABLET PO SCH (09:00)
[2018-03-17] MEDS ORDERED: PANTOPRAZOLE 40 MG TABLET PO SCH ×2 (09:00)
[2018-03-17] MEDS ORDERED: ATORVASTATIN 40 MG TABLET PO SCH (09:00)
[2018-03-17] MEDS ORDERED: ASPIRIN EC 81 MG TABLET PO SCH (09:00)
[2018-03-17] MEDS ORDERED: MEMANTINE 5 MG TABLET PO SCH (09:00)
[2018-03-17] MEDS ORDERED: CALCIUM (CARBONATE)/VITAMIN D 600 MG-400 UNIT TABLET PO SCH (09:00)
[2018-03-17] MEDS ORDERED: predniSONE 10 MG TABLET PO SCH (09:00)
[2018-03-17] MEDS ORDERED: THEOPHYLLINE ER (24 HR) 400 MG CAPSULE PO SCH (09:00)
[2018-03-17] MEDS ORDERED: METOPROLOL TARTRATE 25 MG TABLET PO SCH (09:00)
[2018-03-17] MEDS ORDERED: ASCORBIC ACID 500 MG TABLET PO SCH (09:00)
[2018-03-17] MEDS ORDERED: TUBERCULIN SKIN TEST 0.1 ML SYRINGE INTRADERM ONE (10:54)
[2018-03-17 10:59] VITALS: BP 90/72
[2018-03-17] MEDS ORDERED: ARIPiprazole 5 MG TABLET PO SCH (21:00)
[2018-03-17] MEDS ORDERED: INSULIN GLARGINE 100 UNIT/ML SUBCUT SCH (21:00)
== END 2018-03-17 15:33 ==
LOC: EDUNIT# → EDBD → N.ED 21:46 → INTOOBSV 03-17 00:22 → N.EDINP 03-17 00:22 → N.3E 03-17 01:26
PROVIDERS: ADMIT Internal Medicine; ATTEND Internal Medicine